=== PATIENT | female | born 1935 | race Caucasian/White ===

== ENCOUNTER 2017-04-13 13:21 | Inpatient (IN) | END 2017-05-01 14:00 | disposition home health service (06) | DRG 560 ==

== ENCOUNTER 2018-08-09 14:27 | Inpatient (IN) | payer MEDICARE, OTHER ==
[~2018-08-09] VITALS: Ht 157.5 cm; Wt 61.8 kg
[~2018-08-09 14:27] MED LIST: ASPI81TA52 PO; CITA20TA11 PO; CLON0.2T5 PO; CLOP75TA27 PO; DEXL60CA2 PO; DIGO250T PO; FLUT9.9S NASAL; FOLI-49 PO; LOPE-123 PO; LORA1TAB PO; LUBI24CA7 PO; MAGN400T27 PO; METO-319 PO; SIN25100 PO; TRIA1CAP PO; VALS160T20 PO
[2018-08-09 18:00] VITALS: BP 132/67; PULSE 63; RESP 18
[2018-08-09] MEDS ORDERED: MAGNESIUM HYDROXIDE 30ML CUP PO PRN (19:00)
[2018-08-09] MEDS ORDERED: ACETAMINOPHEN 325 MG TAB PO PRN (19:00)
[2018-08-09] MEDS ORDERED: LACTULOSE 30ML CUP PO PRN (19:00)
[2018-08-09] MEDS ORDERED: BISACODYL 10 MG SUPP PR PRN (19:00)
[2018-08-09] MEDS ORDERED: PENDING SANTYL ORDER FOR WOUND CARE XX PRN (19:00)
[2018-08-09] MEDS ORDERED: traMADol 50 MG TAB PO PRN (19:30)
[2018-08-09 19:56] VITALS: Ht 157.5 cm; Wt 61.8 kg
[2018-08-09 20:00] VITALS: BP 131/61; PULSE 57; RESP 18
[2018-08-09] MEDS: LORAZEPAM 0.5 MG TAB PO SCH (22:22)
[2018-08-09] MEDS: AMIODARONE 200 MG TAB PO SCH (22:22)
[2018-08-09] MEDS: CARBIDOPA/LEVODOPA (25/100) TAB PO SCH (22:23)
[2018-08-09] MEDS: LUBIPROSTONE 24 MCG CAP PO SCH (22:23)
[2018-08-09] MEDS: DOCUSATE SODIUM 100 MG CAP PO SCH (22:23)
[2018-08-09] MEDS: METOPROLOL (XL) 50 MG TAB PO SCH (22:23)
[2018-08-09] MEDS: SENNA TAB PO SCH (22:23)
[2018-08-09] MEDS: PRAMIPEXOLE 0.25 MG TAB PO SCH (22:24)
[2018-08-09] MEDS: ENOXAPARIN 60 MG/0.6 ML SYG SC SCH (22:27)
[2018-08-10 02:16] VITALS: BP 127/60; PULSE 59; RESP 18
[2018-08-10] MEDS: PANTOPRAZOLE (EC) 40 MG TAB PO SCH (06:33)
[2018-08-10 07:00] VITALS: BP 144/67; PULSE 60; RESP 18
[2018-08-10] MEDS: LUBIPROSTONE 24 MCG CAP PO SCH ×2 (09:00→20:32)
[2018-08-10] MEDS: DOCUSATE SODIUM 100 MG CAP PO SCH ×2 (09:00→20:32)
[2018-08-10] MEDS: MAGNESIUM OXIDE 400 MG TAB PO SCH (09:12)
[2018-08-10] MEDS: CLOPIDOGREL 75 MG TAB PO SCH (09:12)
[2018-08-10] MEDS: FOLIC ACID 1 MG TAB PO SCH (09:12)
[2018-08-10] MEDS: ESCITALOPRAM 10 MG TAB PO SCH (09:12)
[2018-08-10] MEDS: AMIODARONE 200 MG TAB PO SCH ×2 (09:13→20:36)
[2018-08-10] MEDS: METOPROLOL (XL) 50 MG TAB PO SCH ×2 (09:14→20:36)
[2018-08-10] MEDS: CARBIDOPA/LEVODOPA (25/100) TAB PO SCH ×4 (09:14→20:32)
[2018-08-10] MEDS: PRAMIPEXOLE 0.25 MG TAB PO SCH ×2 (09:14→21:22)
[2018-08-10] MEDS: FUROSEMIDE 20 MG TAB PO SCH (09:14)
[2018-08-10] MEDS: ENOXAPARIN 60 MG/0.6 ML SYG SC SCH ×2 (09:22→20:53)
[2018-08-10 14:00] VITALS: BP 145/65; PULSE 60; RESP 18
[2018-08-10] MEDS: ACETAMINOPHEN 325 MG TAB PO PRN (15:18)
--- NOTE | 2018-08-10 16:00 | CONS ---
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 ACTIVE COMORBIDITIES: 1. Parkinson's disease. 2. Hypertension. 3. Dysphagia. 4. History of atrial fibrillation. 5. Impairments in self-care, mobility and cognition. HISTORY OF PRESENT ILLNESS: The patient is a pleasant 82-year-old female with a history of multiple medical comorbidities including Parkinson's disease, atrial fibrillation and hypertension who was admitted with altered mental status to [facility]. Workup was consistent with a left parietal infarct cerebrovascular accident. The patient's hospital course is also notable for atrial fibrillation with rapid ventricular response. Patient has now been cleared to transfer to the rehabilitation unit for comprehensive interdisciplinary rehab care. FUNCTIONAL HISTORY: Prior to recent events, the patient was independent in self-care tasks and mobility. Currently, she requires moderate to maximal assist for self-care and mobility tasks. FAMILY AND SOCIAL HISTORY: The patient lives at home and hopes to return there upon discharge. PAST MEDICAL HISTORY: 1. Parkinson disease. 2. Hypertension. 3. Atrial fibrillation. CURRENT MEDICATIONS: 1. Amiodarone 200 mg p.o. b.i.d. 2. Protonix 40 mg p.o. daily. 3. Lorazepam 1 mg p.o. at bedtime. 4. Folic acid 1 mg p.o. daily. 5. Metoprolol 50 mg p.o. b.i.d. 6. Furosemide 20 mg p.o. daily. 7. Lovenox b.i.d. 8. Plavix 75 mg p.o. daily. ALLERGIES: The patient with no known drug allergies. PHYSICAL EXAMINATION: VITAL SIGNS: She is currently afebrile with stable vital signs. HEENT: Extraocular motions are intact. Oropharynx clear. NECK: Supple. LUNGS: Clear anteriorly. CARDIAC: S1, S2. ABDOMEN: Soft, nontender, positive bowel sounds. NEUROLOGIC: She is awake and alert. She will follow simple 1-step commands. She demonstrates antigravity strength in bilateral upper extremity and lower extremity. PLAN: The patient has been admitted for comprehensive interdisciplinary acute rehab and is anticipated to tolerate 3 hours of daily therapy in divided doses for at least 5/7 days a week. The treatment plan will include: 1. Physical therapy to focus on bed mobility, transfers, and household ambulation with the goal of having the patient reach a standby assist level. 2. Occupational therapy to focus on hygiene, grooming, dressing, bathing, and toileting activities with the goal of having the patient reach a standby assist level. 3. Speech therapy for full cognitive assessment and retraining in addition to dysphagia management with the goal of having the patient meet nutritional needs by mouth and return to baseline cognition. 4. Rehabilitation nursing for carryover of therapeutic interventions, the goal of continent of bowel and bladder, and the goal of patient education with regard to the aforementioned issues. 5. Neuropsychology for full cognitive assessment and oversight of cognitive program. REHABILITATION BARRIER: Cognition. INTERVENTION FOR BARRIER: Speech therapy and neuropsychology. ESTIMATED LENGTH OF STAY: 14 days. DISPOSITION GOAL: Home. As a board certified specialist in physical medicine and rehabilitation, I attest this patient qualifies for an interdisciplinary acute rehabilitation unit stay and is best managed at this level of care. The patient has potential to make improvement and is in need of at least 2 of the following multidisciplinary therapies including but not limited to physical therapy, occupational therapy, speech therapy in addition to nutritional services and orthotic prosthetic services. After a thorough review of the patient's medical records and physical examination, I believe that the patient meets all criteria for acute rehabilitation unit level of care under [facility] guidelines. The patient has expressed a good understanding of our current rehabilitation plan and discharge process. Dictated By: JAMES KEITH/RYAN Conf#: [id number] DID#: [id number]
--- NOTE | 2018-08-10 17:05 | QN ---
Documentation Comment seen and exmained CORI JON MD Aug 10, 2018 17:05
--- NOTE | 2018-08-10 19:51 | HP ---
DATE OF ADMISSION: 08/09/2018 REASON FOR ADMISSION: Stroke with right-sided weakness. HISTORY OF PRESENTING ILLNESS: This is an 82-year-old woman with a past medical history of Parkinson 's, hypertension, hyperlipidemia, history of right femoral neck fracture status post hemiarthroplasty in 2017, history of CHF, history of UTI, who presented to [facility] on 08/04/2018. The patient was found to have altered mental status. The patient was seen by neurology, had CT of t he head and had MRI of the brain. MRI of the brain showed large area of acute nonhemorrhagic infarct ion at the mid left parietal region. The patient was seen by neurology and was started on Plavix. T he patient was also on Lovenox for AFib. The patient was seen by PT, OT and was transferred to acute rehab for further care. PAST MEDICAL HISTORY: 1. Hypertension. 2. Hyperlipidemia. 3. Chronic AFib. 4. Parkinson's disease. 5. History of hemiarthroplasty in 2017. ALLERGIES: NONE. PAST SURGICAL HISTORY: Arthroplasty. The patient also had some stomach surgery. SOCIAL HISTORY: Denies any history of smoking, alcohol or any drug use. MEDICATIONS: 1. Amiodarone 200 p.o. b.i.d. 2. Protonix 40. 3. Lorazepam. 4. Folic acid. 5. Metoprolol 50 b.i.d. 6. Lasix 20. 7. Lovenox 50 b.i.d. 8. Plavix 75. FAMILY HISTORY: Noncontributory. SOCIAL HISTORY: The patient lives with her son at home. REVIEW OF SYSTEMS: The patient complained of some generalized weakness in the lower extremities. De nies any chest pain, any shortness of breath, any abdominal pain, nausea, vomiting, diarrhea, headach e, blurry vision. PHYSICAL EXAMINATION: VITAL SIGNS: Currently, blood pressure 145/65, afebrile, heart rate 60, saturating 96% on room air. GENERAL: The patient is awake, alert, oriented, does not appear in any acute distress. HEENT: Pupils are equal, round, reactive to light. NECK: Supple. No JVD. HEART: Irregularly irregular. LUNGS: Clear to auscultate bilaterally. ABDOMEN: Soft, nondistended, nontender, positive normoactive bowel sounds. NEUROLOGIC: The patient is awake, alert, oriented, follows commands, responds appropriately. The reji haile has 5/5 strength in bilateral upper extremities and 4/5 strength in bilateral lower extremities . LABORATORY DATA: Shows a BMP within normal limits. White count of 5.1, hemoglobin 10.3, platelet co unt 369. UA showed trace ketones, positive nitrite, 1+ urobilinogen, many bacteria, 5 WBCs. ASSESSMENT AND PLAN: This is an 82-year-old female with: 1. Altered mental status, status post large area of acute nonhemorrhagic infarction in the left midd le parietal region with some weakness of the lower extremities. 2. Hypertension. 3. Hyperlipidemia. 4. Parkinson disease. 5. Chronic atrial fibrillation. PLAN: At this period of time, the patient is admitted to rehab unit. The patient will be continued on Plavix. However, the patient is also on Lovenox. We will check with cardiology and neurology reg arding continuation of both. Continue the patient on carbidopa/levodopa, pramipexole, Ultram for chito n control. We will continue to follow patient with you. Cardiology and neurology has been consulted . Rest of the treatment will depend on the patient's hospitalization course. Dictated By: CORI TORRES/RYAN Conf#: [id number] DID#: [id number] CC: JAMES PYLE MD;*End*
[2018-08-10 20:13] VITALS: BP 142/69; PULSE 61; RESP 18
[2018-08-10] MEDS: LORAZEPAM 0.5 MG TAB PO SCH (20:32)
[2018-08-10] MEDS: SENNA TAB PO SCH (20:33)
[2018-08-10 22:00] VITALS: BP 109/59; PULSE 59
--- NOTE | 2018-08-10 22:28 | CONS ---
DATE OF ADMISSION: 08/09/2018 DATE OF CONSULTATION: 08/10/2018 REASON FOR CONSULTATION: Paroxysmal atrial fibrillation. REQUESTING PHYSICIAN: Gabbi Nino MD. HISTORY OF PRESENT ILLNESS: Ms. Plata is an 82-year-old female with history of Parkinson disease, at the [facility] fibrillation, hypertension, dyslipidemia, anemia, who initially presented to outside hospital wi th orthostasis, finding of acute CVA, left parietal with right-sided weakness. The patient at [facility] was additionally found to have episodes of paroxysmal atrial fibrillation and was placed o n anticoagulation and amiodarone. The patient made improvement, has now been transferred to [facility] for ongoing evaluation and treatment to the rehab facility. PAST MEDICAL HISTORY: As above in HPI. The patient having an echo revealing a preserved EF at [facility] with EF of 55%, mild mitral and tricuspid regurgitation. MEDICATIONS CURRENTLY IN HOSPITAL: 1. Lexapro. 2. Folic acid. 3. Lasix. 4. Plavix 75 mg daily. 5. Mag-Ox. 6. Protonix. 7. Colace. 8. Senna. 9. Amiodarone 200 mg b.i.d. 10. Toprol-XL 50 mg b.i.d. 11. Lovenox 60 mg subq b.i.d. 12. Tramadol. 13. Mirapex. ALLERGIES: NO KNOWN DRUG ALLERGIES. SOCIAL HISTORY: No current tobacco, ETOH or illicit drug use. FAMILY HISTORY: No sudden cardiac or early CAD. REVIEW OF SYSTEMS: As above in HPI. CONSTITUTIONAL: No fevers or chills. PULMONARY: No current shortness of breath. CARDIOVASCULAR: No current chest pain. GASTROINTESTINAL: No vomiting. GENITOURINARY: No hematuria. MUSCULOSKELETAL: Degenerative joint disease. PSYCHIATRIC: Positive psych history. NEUROLOGIC: Acute CVA at outside hospital. PHYSICAL EXAMINATION: VITAL SIGNS: Temperature 97.5, blood pressure 145/65, pulse 60, respiration 18, sat 96%. GENERAL: The patient is alert, awake, no acute distress. NECK: JVP approximately 8 to 9 cm of water. CHEST: Fair air movement throughout. HEART: Regular rate and rhythm. Normal S1, S2, I/ systolic murmur. Nondisplaced PMI. ABDOMEN: Positive bowel sounds, soft. EXTREMITIES: No syncope, edema, 1+ pulses bilateral posterior tibial. LABORATORY DATA: Most recently from today, white cell count 5.1, hemoglobin 10.3, platelet count 369 . Sodium 137, potassium 4.2, creatinine 0.8, BUN 19. UA positive. IMAGING STUDIES: As above in HPI. No further imaging for my review at this time. ECG: As above in HPI. No further electrocardiograms for my review at this time. IMPRESSION: 1. Paroxysmal atrial fibrillation on amiodarone and Lovenox. 2. Hypertension, mildly elevated. 3. Dyslipidemia, not on statin at this time. 4. Status post acute cerebrovascular accident, in rehab now. 5. Anemia. 6. Parkinson. 7. Psychiatric disorder. RECOMMENDATIONS: 1. At this time, would check a baseline EKG now and repeat EKG to assess the patient's current rhyth m. 2. Continue the patient's current amiodarone and Plavix for now and would likely change the patient from Lovenox to Eliquis for long-term systemic anticoagulation in the setting of atrial fibrillation and recent cerebrovascular accident. 3. Continue the patient's Sinemet, treatment of Parkinson. 4. Continue the Lasix. Follow the patient's volume status closely. 5. Continue the patient's baseline psych medications. 6. Continue the patient's baseline Toprol for blood pressure and heart rate control with further tit ration and possible addition of antihypertensives as necessary. 7. Continue PT and OT in inpatient rehabilitation. Thank you for allowing me to take part in the care of this patient. I will continue to follow very c losely with you. Further recommendations will be made as the patient progresses through his [facility] clinical course. Dictated By: BETTY PICKARD/RYAN Conf#: [id number] DID#: [id number]
--- NOTE | 2018-08-10 23:59 | HKNOTE ---
DATE OF SERVICE: 08/10/2018 HISTORY OF PRESENT ILLNESS: The patient is an 82-year-old status post right-sided weakness, left sub cortical stroke, parkinsonism, gait difficulty, hypertension, and atrial fibrillation in which the reji haile was discharged from [facility] and admitted to acute rehab at [facility] for continuation of her medication and her therapy. MEDICATIONS: 1. Amlodipine 200 mg twice a day. 2. Protonix 40 mg once a day. 3. Plavix 75 mg once a day. 4. Metoprolol 50 mg twice a day. 5. Lasix 20 mg once a day as needed. 6. Folic acid. 7. Lorazepam 1 mg at bedtime as needed. 8. Lovenox subcutaneous. ALLERGIES: THE PATIENT HAS NO ALLERGY TO KNOWN MEDICATION. PAST MEDICAL HISTORY: As above includes parkinsonism, hypertension, and atrial fibrillation, PHYSICAL EXAMINATION: GENERAL: Today, the patient is alert, awake, and can follow simple commands. CRANIAL NERVES: Cranial nerve II: Pupils equal both sides, reactive to light. Cranial nerves III, IV, and : Extraocular muscles are intact, no nystagmus. Cranial nerve V: Equal sensation to face . Cranial nerve VII: Symmetrical face. Cranial nerve VIII: Decreased hearing bilaterally. Crania l IX-X: Elevates palate. Cranial nerve XI: Elevates shoulder 5/5. Cranial XII: With straight ton jaspreet. MOTOR: Right side is 4+/5. Sensation decreased in the right side for light touch and temperature. COORDINATION: [id number] test intact in the left side, right side with weakness. HEART: Regular rate and rhythm. LUNGS: Equal breath sounds. ABDOMEN: Soft, relaxed. ASSESSMENT AND PLAN: 1. The patient is an 82-year-old status post acute stroke. Continue the patient on Plavix. Begin L ovenox as well. 2. Underlying parkinsonism. Keep the patient with Sinemet 100/25 mg 3 times a day. 3. Hypertension. Keep the blood pressure level 140/90. 4. Atrial fibrillation with the patient on metoprolol and amiodarone, followed by Dr. Aiken for ca rdiology consult and the patient also with the Lovenox. 5. Gait difficulty with the patient under physical therapy program. 6. Upper extremity weakness, and the patient is followed by occupational therapy. 7. Underlying dementia, which the patient is followed by neuropsychology for cognitive assessment. Again, thank you for asking me to see the patient with you. Dictated By: COLIN LOW MD NA/NTS Conf#: [id number] DID#: [id number] CC: CORI JON; JAMES PYLE MD;*End*
[2018-08-11 02:00] VITALS: BP 125/65; PULSE 62; RESP 18
[2018-08-11] MEDS: PANTOPRAZOLE (EC) 40 MG TAB PO SCH (05:44)
[2018-08-11 07:00] VITALS: BP 156/70; PULSE 59; RESP 18
[2018-08-11] MEDS: PRAMIPEXOLE 0.25 MG TAB PO SCH ×2 (09:49→21:26)
[2018-08-11] MEDS: CLOPIDOGREL 75 MG TAB PO SCH (09:49)
[2018-08-11] MEDS: CARBIDOPA/LEVODOPA (25/100) TAB PO SCH ×4 (09:50→21:25)
[2018-08-11] MEDS: FUROSEMIDE 20 MG TAB PO SCH (09:50)
[2018-08-11] MEDS: ESCITALOPRAM 10 MG TAB PO SCH (09:51)
[2018-08-11] MEDS: METOPROLOL (XL) 50 MG TAB PO SCH ×2 (09:51→21:30)
[2018-08-11] MEDS: LUBIPROSTONE 24 MCG CAP PO SCH ×2 (09:51→21:25)
[2018-08-11] MEDS: FOLIC ACID 1 MG TAB PO SCH (09:51)
[2018-08-11] MEDS: DOCUSATE SODIUM 100 MG CAP PO SCH ×2 (09:51→21:24)
[2018-08-11] MEDS: MAGNESIUM OXIDE 400 MG TAB PO SCH (09:52)
[2018-08-11] MEDS: AMIODARONE 200 MG TAB PO SCH ×2 (09:52→21:28)
[2018-08-11] MEDS: APIXABAN 5 MG TABLET PO SCH ×2 (09:52→21:26)
--- NOTE | 2018-08-11 10:31 | PN ---
Date/Time of Note Date/Time of Note DATE: 08/11/18 TIME: 10:29 Subjective Comfortable Objective Vital Signs Date Temp Pulse Resp B/P (MAP) Pulse Ox O2 O2 Flow FiO2 Time Delivery Rate 08/11/18 2.0 08:00 08/11/18 98.2 59 18 156/70 98 Room Air 07:00 (98) Intake and Output 08/10/18 08/10/18 08/11/18 1515:00 23:00 07:00 IntakeIntake Total 1440 ml 650 ml OutputOutput Total 150 ml 400 ml BalanceBalance -150 ml 1040 ml 650 ml Exam pulm-cta mod transfer mod amb 5 feet Results/Medications Result Diagram: 08/10/1808 08/10/18 0708 Results 24 hrs Laboratory Tests Test 08/10/18 16:00 08/11/18 06:25 Urine Color BRYAN Urine Clarity CLOUDY A Urine pH 6.0 Urine Specific [place] 1.021 Urine Ketones TRACE A Urine Nitrite POSITIVE A Urine Bilirubin NEGATIVE Urine Urobilinogen 1+ H Urine Leukocyte Esterase NEGATIVE Urine Microscopic RBC 0 Urine Microscopic WBC 5 Urine Bacteria MANY A Urine Mucus FEW A Urine Hemoglobin NEGATIVE Urine Glucose NEGATIVE Urine Total Protein NEGATIVE Triglycerides Level 142 Cholesterol Level 169 LDL Cholesterol, Calculated 106 HDL Cholesterol 35 Cholesterol/HDL Ratio 4.8 Medications Current Medications Docusate Sodium (Colace) 100 mg BID PO Last administered on 08/11/18at 09:51; Admin Dose 100 MG; Start 08/09/18 at 21:00 Senna (Senokot) 1 tab HS PO Last administered on 08/10/18at 20:33; Admin Dose 1 TAB; Start 08/09/18 at 21:00 Magnesium Hydroxide (Milk Of Mag) 30 ml BID PRN PO CONSTIPATION; Start 08/09/18 at 19:00 Lactulose (Enulose) 20 gm DAILY PRN PO CONSTIPATION; Start 08/09/18 at 19:00 Bisacodyl (Dulcolax Supp) 10 mg DAILY PRN [place] CONSTIPATION; Start 08/09/18 at 19:00 [facility]isc[facility] This patient mendoza... PRN PRN XX WOUND CARE; Start 08/09/18 at 19:00 Amiodarone HCl (Cordarone) 200 mg BID PO Last administered on 08/11/18at 09:52; Admin Dose 200 MG; Start 08/09/18 at 21:00 Pantoprazole (Protonix Tab) 40 mg DAILY@06 PO Last administered on 08/11/18 05:44; Admin Dose 40 MG; Start 08/10/18 at 06:00 Lorazepam (Ativan) 1 mg HS PO Last administered on 08/10/18 20:32; Admin Dose 1 MG; Start 08/09/18 at 21:00 Escitalopram Oxalate (Lexapro) 20 mg DAILY PO Last administered on 08/11/18 09:51; Admin Dose 20 MG; Start 08/10/18 at 09:00 Folic Acid (Folic Acid) 1 mg DAILY PO Last administered on 08/11/18 09:51; Admin Dose 1 MG; Start 08/10/18 at 09:00 Lubiprostone (Amitiza) 24 mcg BID PO Last administered on 08/11/18 09:51; Admin Dose 24 MCG; Start 08/09/18 at 21:00 Metoprolol Succinate (Toprol Xl) 50 mg BID PO Last administered on 08/11/18 09:51; Admin Dose 50 MG; Start 08/09/18 at 21:00 Pramipexole (Mirapex) 0.5 mg BID PO Last administered on 08/11/18 09:49; Admin Dose 0.5 MG; Start 08/09/18 at 21:00 Furosemide (Lasix) 20 mg DAILY PO Last administered on 08/11/18 09:50; Admin Dose 20 MG; Start 08/10/18 at 09:00 Clopidogrel Bisulfate (plaVIX) 75 mg DAILY PO Last administered on 08/11/18 09:49; Admin Dose 75 MG; Start 08/10/18 at 09:00 Magnesium Oxide (Mag-Ox 400) 400 mg DAILY PO Last administered on 08/11/18 09:52; Admin Dose 400 MG; Start 08/10/18 at 09:00 Carbidopa/Levodopa (Sinemet (25/ 100)) 1 tab QID PO Last administered on 08/11/18 09:50; Admin Dose 1 TAB; Start 08/09/18 at 21:00 Tramadol HCl (Ultram) 50 mg Q6H PRN PO SEVERE PAIN LEVEL 7-10 Last administered on 08/11/18 09:51; Admin Dose 50 MG; Start 08/09/18 at 19:30 Acetaminophen (Tylenol Tab) 650 mg Q8 PRN PO MODERATE PAIN LEVEL 4-6 Last adm inistered on 08/10/18at 15:18; Admin Dose 650 MG; Start 08/09/18 at 19:30 Apixaban (Eliquis) 2.5 mg BID PO Last administered on 08/11/18at 09:52; Admin Dose 2.5 MG; Start 08/11/18 at 09:00 Assessment/Plan Additional Assessment/Plan Rehab- 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 Tolerating rehab program well Hypertension. Dysphagia-speech therapy History of atrial fibrillation. JAMES PYLE MD Aug 11, 2018 10:31
--- NOTE | 2018-08-11 10:38 | CONS ---
Consult Date/Type/Reason Admit Date/Time Aug 09, 2018 at 18:10 Initial Consult Date Date/Time of Note DATE: 08/11/18 TIME: 10:36 Subjective NO acute events - pt comfortable - no CP now - doing well in rehab. ROS: No fever, no chills, no nausea, no vomiting, no diarrhea/constipation No recent weight changes No chest pain, no PND, no orthopnea - mild SOB No dizziness, blurred vision No thirst, no heat or cold intolerance Objective Vitals Vital Signs Date Temp Pulse Resp B/P (MAP) Pulse Ox O2 O2 Flow FiO2 Time Delivery Rate 08/11/18 2.0 08:00 08/11/18 98.2 59 18 156/70 98 Room Air 07:00 (98) Intake and Output 08/10/18 08/10/18 08/11/18 1414:59 22:59 06:59 IntakeIntake Total 1440 ml 650 ml OutputOutput Total 150 ml 400 ml BalanceBalance -150 ml 1040 ml 650 ml Exam General: WN/WD/NAD, AOx 2-3 HEENT: Unicetric/atraumatic/EOMI (follows commands) NECK: JVD elevated, no thyromegaly Lymph: no lymphadenopathy HEART: regular with no S3, II/ systolic murmur at apex LUNGS: Coarse sounds ABD: soft, NT, ND, +BS : Intact Neuro: non focal SKIN: chronic changes EXT: trace edema Results/Medications Result Diagram: 08/10/18 0708 08/10/18 0708 Results 24 hrs Laboratory Tests Test 08/10/18 16:00 08/11/18 06:25 Urine Color BRYAN Urine Clarity CLOUDY A Urine pH 6.0 Urine Specific [place] 1.021 Urine Ketones TRACE A Urine Nitrite POSITIVE A Urine Bilirubin NEGATIVE Urine Urobilinogen 1+ H Urine Leukocyte Esterase NEGATIVE Urine Microscopic RBC 0 Urine Microscopic WBC 5 Urine Bacteria MANY A Urine Mucus FEW A Urine Hemoglobin NEGATIVE Urine Glucose NEGATIVE Urine Total Protein NEGATIVE Triglycerides Level 142 Cholesterol Level 169 LDL Cholesterol, Calculated 106 HDL Cholesterol 35 Cholesterol/HDL Ratio 4.8 Home Meds Active Scripts Clonidine Hcl* (Clonidine Hcl*) 0.2 Mg Tablet, 0.2 MG PO Q8 PRN for ELEVATED SYSTOLIC BP, #30 TAB Prov:YOLI HARRISON 07/08/15 Reported Medications Lubiprostone* (Amitiza*) 24 Mcg Capsule, 24 MCG PO BID, #60 CAP 07/06/15 Carbidopa-Levodopa* (Sinemet*) 25-100 Mg Tab, 1 TAB PO QID, TAB 07/06/15 Loperamide Hcl* (Loperamide Hcl*) 2 Mg Cap, 2 MG PO TID, CAP 07/06/15 Valsartan* (Diovan*) 160 Mg Tablet, 160 MG PO DAILY, TAB 07/06/15 Dexlansoprazole (Dexilant) 60 Mg Cap., 60 MG PO DAILY, #30 CAP 07/06/15 Metoprolol Succinate* (Toprol XL*) 50 Mg Tab.er.24h, 50 MG PO DAILY, #30 TAB 07/06/15 Citalopram Hydrobromide* (Celexa*) 20 Mg Tablet, 20 MG PO DAILY, #30 TAB 07/06/15 Aspirin (Low Dose Aspirin) 81 Mg Tablet., 81 MG PO DAILY, #30 TAB 07/06/15 Digoxin* (Digoxin*) 0.25 Mg Tab, 0.25 MG PO DAILY, #30 TAB 07/06/15 Clopidogrel Bisulfate (Clopidogrel) 75 Mg Tablet, 75 MG PO DAILY, #30 TAB 07/06/15 Lorazepam* (Lorazepam*) 1 Mg Tablet, 1 MG PO BID PRN for ANXIETY, #30 TAB 07/06/15 Triamterene-HCTZ* (Triamterene-HCTZ*) 37.5 - 25 Mg Capsule, 1 CAP PO DAILY, CAP 07/06/15 Fluticasone Propionate (Flonase Allergy Relief) 9.9 Ml [place].susp, 1 SPRAY NASAL BID, #1 BOTTLE TO EACH NOSTRIL 07/06/15 Magnesium Oxide* (Mag-Oxide*) 400 Mg Tablet, 400 MG PO BID, TAB 07/06/15 Folic Acid* (Folic Acid*) 1 Mg Tablet, 1 MG PO DAILY, TAB 07/06/15 Medications Current Medications Docusate Sodium (Colace) 100 mg BID PO Last administered on 08/11/18at 09:51; Admin Dose 100 MG; Start 08/09/18 at 21:00 Senna (Senokot) 1 tab HS PO Last administered on 08/10/18at 20:33; Admin Dose 1 TAB; Start 08/09/18 at 21:00 Magnesium Hydroxide (Milk Of Mag) 30 ml BID PRN PO CONSTIPATION; Start 08/09/18 at 19:00 Lactulose (Enulose) 20 gm DAILY PRN PO CONSTIPATION; Start 08/09/18 at 19:00 Bisacodyl (Dulcolax Supp) 10 mg DAILY PRN [place] CONSTIPATION; Start 08/09/18 at 19:00 Miscellaneous Information (Pending [facility] Order For Wound Care) This patient mendoza... PRN PRN XX WOUND CARE; Start 08/09/18 at 19:00 Amiodarone HCl (Cordarone) 200 mg BID PO Last administered on 08/11/18 09:52; Admin Dose 200 MG; Start 08/09/18 at 21:00 Pantoprazole (Protonix Tab) 40 mg DAILY@06 PO Last administered on 08/11/18 05:44; Admin Dose 40 MG; Start 08/10/18 at 06:00 Lorazepam (Ativan) 1 mg HS PO Last administered on 08/10/18 20:32; Admin Dose 1 MG; Start 08/09/18 at 21:00 Escitalopram Oxalate (Lexapro) 20 mg DAILY PO Last administered on 08/11/18 09:51; Admin Dose 20 MG; Start 08/10/18 at 09:00 Folic Acid (Folic Acid) 1 mg DAILY PO Last administered on 08/11/18 09:51; Admin Dose 1 MG; Start 08/10/18 at 09:00 Lubiprostone (Amitiza) 24 mcg BID PO Last administered on 08/11/18 09:51; Admin Dose 24 MCG; Start 08/09/18 at 21:00 Metoprolol Succinate (Toprol Xl) 50 mg BID PO Last administered on 08/11/18 09:51; Admin Dose 50 MG; Start 08/09/18 at 21:00 Pramipexole (Mirapex) 0.5 mg BID PO Last administered on 08/11/18 09:49; Admin Dose 0.5 MG; Start 08/09/18 at 21:00 Furosemide (Lasix) 20 mg DAILY PO Last administered on 08/11/18 09:50; Admin Dose 20 MG; Start 08/10/18 at 09:00 Clopidogrel Bisulfate (plaVIX) 75 mg DAILY PO Last administered on 08/11/18 09:49; Admin Dose 75 MG; Start 08/10/18 at 09:00 Magnesium Oxide (Mag-Ox 400) 400 mg DAILY PO Last administered on 08/11/18 09:52; Admin Dose 400 MG; Start 08/10/18 at 09:00 Carbidopa/Levodopa (Sinemet (25/ 100)) 1 tab QID PO Last administered on 08/11/18 09:50; Admin Dose 1 TAB; Start 08/09/18 at 21:00 Tramadol HCl (Ultram) 50 mg Q6H PRN PO SEVERE PAIN LEVEL 7-10 Last administered on 08/11/18 09:51; Admin Dose 50 MG; Start 08/09/18 at 19:30 Acetaminophen (Tylenol Tab) 650 mg Q8 PRN PO MODERATE PAIN LEVEL 4-6 Last administered on 08/10/18 15:18; Admin Dose 650 MG; Start 08/09/18 at 19:30 Apixaban (Eliquis) 2.5 mg BID PO Last administered on 08/11/18 09:52; Admin Dose 2.5 MG; Start 08/11/18 at 09:00 Assessment/Plan Hospital Course (Demo Recall) 1. Paroxysmal atrial fibrillation on amiodarone and Lovenox - in sinus now, rate controlled. 2. Hypertension, mildly elevated - con't to add Rx to goal s/p CVA. 3. Dyslipidemia, not on statin at this time. 4. Status post acute cerebrovascular accident, in rehab now - compianat with rehab. 5. Anemia - H/H stable - no bleeding now. 6. Parkinson. 7. Psychiatric disorder- treated. FLACO KITCHEN MD Aug 11, 2018 10:37
[2018-08-11 14:00] VITALS: BP 114/56; PULSE 54; RESP 18
--- NOTE | 2018-08-11 15:25 | PN ---
Date/Time of Note Date/Time of Note DATE: 08/11/18 TIME: 15:22 Assessment/Plan VTE Prophylaxis Risk score (from Ns)>0 risk: 4 SCD applied (from Ns): Yes Pharmacological prophylaxis: NA/contraindicated Pharm contraindication: low risk/ambulating Lines/Catheters Urinary Cath still in place: No Assessment/Plan Hospital Course 82-year-old female with: 1. 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 2. Hypertension. 3. Hyperlipidemia. 4. Parkinson disease. 5. Chronic atrial fibrillation. 6 UTI Plan -Continue with Plavix -Start Cipro fine pending urine cultures -Started on Eliquis per cardiology for A. fib -Continue with statin continue with Sinemet -Follow with neuro and cardiac recs -PT/OT Result Diagram: 08/10/18 0708 08/10/18 0708 Results 24hrs Laboratory Tests Test 08/10/18 16:00 08/11/18 06:25 Urine Color BRYAN Urine Clarity CLOUDY A Urine pH 6.0 Urine Specific [place] 1.021 Urine Ketones TRACE A Urine Nitrite POSITIVE A Urine Bilirubin NEGATIVE Urine Urobilinogen 1+ H Urine Leukocyte Esterase NEGATIVE Urine Microscopic RBC 0 Urine Microscopic WBC 5 Urine Bacteria MANY A Urine Mucus FEW A Urine Hemoglobin NEGATIVE Urine Glucose NEGATIVE Urine Total Protein NEGATIVE Triglycerides Level 142 Cholesterol Level 169 LDL Cholesterol, Calculated 106 HDL Cholesterol 35 Cholesterol/HDL Ratio 4.8 Subjective 24 Hr Interval Summary Free Text/Dictation Doing well Undergoing physical therapy Exam/Review of Systems Exam Vitals Vital Signs Date Temp Pulse Resp B/P (MAP) Pulse Ox O2 O2 Flow FiO2 Time Delivery Rate 08/11/18 2.0 08:00 08/11/18 98.2 59 18 156/70 98 Room Air 07:00 (98) Intake and Output 08/10/18 08/10/18 08/11/18 1515:00 23:00 07:00 IntakeIntake Total 1440 ml 650 ml OutputOutput Total 150 ml 400 ml BalanceBalance -150 ml 1040 ml 650 ml Exam GENERAL: The patient is awake, alert, oriented, does not appear in any acute distress. HEENT: Pupils are equal, round, reactive to light. NECK: Supple. No JVD. HEART: Irregularly irregular. LUNGS: Clear to auscultate bilaterally. ABDOMEN: Soft, nondistended, nontender, positive normoactive bowel sounds. NEUROLOGIC: The patient is awake, alert, oriented, follows commands, responds appropriately. The patient has 5/5 strength in bilateral upper extremities and 4/5 strength in bilateral lower extremities. Results Results 24hrs Laboratory Tests Test 08/10/18 16:00 08/11/18 06:25 Urine Color BRYAN Urine Clarity CLOUDY A Urine pH 6.0 Urine Specific [place] 1.021 Urine Ketones TRACE A Urine Nitrite POSITIVE A Urine Bilirubin NEGATIVE Urine Urobilinogen 1+ H Urine Leukocyte Esterase NEGATIVE Urine Microscopic RBC 0 Urine Microscopic WBC 5 Urine Bacteria MANY A Urine Mucus FEW A Urine Hemoglobin NEGATIVE Urine Glucose NEGATIVE Urine Total Protein NEGATIVE Triglycerides Level 142 Cholesterol Level 169 LDL Cholesterol, Calculated 106 HDL Cholesterol 35 Cholesterol/HDL Ratio 4.8 Medications Medication Current Medications Docusate Sodium (Colace) 100 mg BID PO Last administered on 08/11/18 09:51; Admin Dose 100 MG; Start 08/09/18 at 21:00 Senna (Senokot) 1 tab HS PO Last administered on 08/10/18at 20:33; Admin Dose 1 TAB; Start 08/09/18 at 21:00 Magnesium Hydroxide (Milk Of Mag) 30 ml BID PRN PO CONSTIPATION; Start 08/09/18 at 19:00 Lactulose (Enulose) 20 gm DAILY PRN PO CONSTIPATION; Start 08/09/18 at 19:00 Bisacodyl (Dulcolax Supp) 10 mg DAILY PRN [place] CONSTIPATION; Start 08/09/18 at 19:00 Miscellaneous Information (Pending [facility] Order For Wound Care) This patient mendoza... PRN PRN XX WOUND CARE; Start 08/09/18 at 19:00 Amiodarone HCl (Cordarone) 200 mg BID PO Last administered on 08/11/18at 09:52; Admin Dose 200 MG; Start 08/09/18 at 21:00 Pantoprazole (Protonix Tab) 40 mg DAILY@06 PO Last administered on 08/11/18at 05:44; Admin Dose 40 MG; Start 08/10/18 at 06:00 Lorazepam (Ativan) 1 mg HS PO Last administered on 08/10/18 20:32; Admin Dose 1 MG; Start 08/09/18 at 21:00 Escitalopram Oxalate (Lexapro) 20 mg DAILY PO Last administered on 08/11/18 09:51; Admin Dose 20 MG; Start 08/10/18 at 09:00 Folic Acid (Folic Acid) 1 mg DAILY PO Last administered on 08/11/18 09:51; Admin Dose 1 MG; Start 08/10/18 at 09:00 Lubiprostone (Amitiza) 24 mcg BID PO Last administered on 08/11/18 09:51; Admin Dose 24 MCG; Start 08/09/18 at 21:00 Metoprolol Succinate (Toprol Xl) 50 mg BID PO Last administered on 08/11/18 09:51; Admin Dose 50 MG; Start 08/09/18 at 21:00 Pramipexole (Mirapex) 0.5 mg BID PO Last administered on 08/11/18 09:49; Admin Dose 0.5 MG; Start 08/09/18 at 21:00 Furosemide (Lasix) 20 mg DAILY PO Last administered on 08/11/18 09:50; Admin Dose 20 MG; Start 08/10/18 at 09:00 Clopidogrel Bisulfate (plaVIX) 75 mg DAILY PO Last administered on 08/11/18 09:49; Admin Dose 75 MG; Start 08/10/18 at 09:00 Magnesium Oxide (Mag-Ox 400) 400 mg DAILY PO Last administered on 08/11/18 09:52; Admin Dose 400 MG; Start 08/10/18 at 09:00 Carbidopa/Levodopa (Sinemet (25/ 100)) 1 tab QID PO Last administered on 08/11/18 14:26; Admin Dose 1 TAB; Start 08/09/18 at 21:00 Tramadol HCl (Ultram) 50 mg Q6H PRN PO SEVERE PAIN LEVEL 7-10 Last administered on 08/11/18 09:51; Admin Dose 50 MG; Start 08/09/18 at 19:30 Acetaminophen (Tylenol Tab) 650 mg Q8 PRN PO MODERATE PAIN LEVEL 4-6 Last administered on 08/10/18 15:18; Admin Dose 650 MG; Start 08/09/18 at 19:30 Apixaban (Eliquis) 2.5 mg BID PO Last administered on 08/11/18 09:52; Admin Dose 2.5 MG; Start 08/11/18 at 09:00 Nifedipine (Procardia Xl) 30 mg BID PO ; Start 08/11/18 at 21:00 Ciprofloxacin (Cipro) 500 mg BID@06,18 PO ; Start 08/11/18 at 18:00; Status UNV CORI JON MD Aug 11, 2018 15:25
[2018-08-11] MEDS: traMADol 50 MG TAB PO PRN (17:22)
[2018-08-11] MEDS: CIPROFLOXACIN 500 MG TAB PO SCH (17:22)
--- NOTE | 2018-08-11 17:35 | RADRPT ---
Vent Rate: 61 bpm RR Interval: 0 msec [place] Interval: 224 msec QRS Duration: 88 msec QT Interval: 486 msec QTC Interval: 489 msec P-R-T [place]: 82 - 48 - 0 degrees Sinus rhythm with 1st degree AV block Left ventricular hypertrophy with repolarization abnormality Abnormal ECG Electronically Signed By: Roderick Aiken
[2018-08-11 20:55] VITALS: BP 118/56; PULSE 50; RESP 18
[2018-08-11] MEDS: SENNA TAB PO SCH (21:24)
[2018-08-11] MEDS: LORAZEPAM 0.5 MG TAB PO SCH (21:25)
--- NOTE | 2018-08-11 21:25 | CONS ---
DATE OF ADMISSION: 08/09/2018 DATE OF CONSULTATION: HISTORY OF PRESENT ILLNESS: The patient is an 82-year-old lady who has history of left subcortical s troke, right-sided weakness, parkinsonism, gait difficulty, hypertension, atrial fibrillation in [facility] the patient was transferred from [facility] to acute rehab at [facility] for continuation of her therapy. CURRENT MEDICATIONS: Include: 1. Amiodarone 200 mg twice a day. 2. Protonix 40 mg once a day. 3. Plavix 75 mg once a day. 4. Metoprolol 50 twice a day. 5. Lasix 20 mg once a day as needed. 6. Folic acid 1 mg once a day. 7. Lorazepam 1 mg at bedtime as needed. 8. Lovenox subcutaneous twice a day. ALLERGIES: NO ALLERGY TO KNOWN MEDICATION. PAST MEDICAL HISTORY: Include Parkinsonism, hypertension, atrial fibrillation. PHYSICAL EXAMINATION: GENERAL: On exam today, the patient is alert, awake, looks confused, can follow simple commands with out difficulty. CRANIAL NERVES: Cranial nerve II: Pupils equal on both sides, reactive to light. Cranial nerves II I, IV and : Extraocular muscles are intact without nystagmus. Cranial nerve V: Equal sensation t o face. Cranial nerve VII: Symmetrical face. Cranial nerve VIII: Decreased hearing bilaterally. Cranial nerve IX and X: Elevates palate. Cranial nerve XI: Elevates shoulder 5/5. Cranial nerve X II: Straight tongue. MOTOR: Right side is 4+/5. Sensation decreased on the right side for light touch and temperature. COORDINATION: [id number] test intact. HEART: Regular rate and rhythm. LUNGS: Equal breath sounds. ABDOMEN: Soft, relaxed, nondistended, no tenderness. ASSESSMENT AND PLAN: 1. The patient is an 82-year-old status post acute stroke. Continue the patient on Plavix. 2. History of atrial fibrillation with the patient is on the Lovenox. 3. History of parkinsonism. Give the patient Sinemet 100/25 mg 3 times a day. 4. Hypertension. Keep the blood pressure at the level of 140/90. 5. Gait difficulty in which the patient acute rehab including physical therapy, occupational t herapy and speech therapy. 6. Underlying dementia. We will follow up the patient with neuropsychological testing. Again, thank you for asking me to see the patient with you. Dictated By: COLIN HERRERA/RYAN Conf#: [id number] DID#: [id number]
[2018-08-11] MEDS: NIFEdipine (XL) 30 MG TAB PO SCH (21:29)
[2018-08-12 04:19] VITALS: BP 140/66; PULSE 59; RESP 18
[2018-08-12] MEDS: CIPROFLOXACIN 500 MG TAB PO SCH (06:26)
[2018-08-12] MEDS: PANTOPRAZOLE (EC) 40 MG TAB PO SCH (06:26)
[2018-08-12 08:00] VITALS: BP 140/65; PULSE 56; RESP 16
[2018-08-12] MEDS: MAGNESIUM OXIDE 400 MG TAB PO SCH (08:58)
[2018-08-12] MEDS: DOCUSATE SODIUM 100 MG CAP PO SCH ×2 (08:58→21:32)
[2018-08-12] MEDS: PRAMIPEXOLE 0.25 MG TAB PO SCH ×2 (09:06→21:32)
[2018-08-12] MEDS: APIXABAN 5 MG TABLET PO SCH ×2 (09:06→21:31)
[2018-08-12] MEDS: LUBIPROSTONE 24 MCG CAP PO SCH ×2 (09:07→21:00)
[2018-08-12] MEDS: traMADol 50 MG TAB PO PRN (09:07)
[2018-08-12] MEDS: METOPROLOL (XL) 50 MG TAB PO SCH ×2 (09:08→21:00)
[2018-08-12] MEDS: CARBIDOPA/LEVODOPA (25/100) TAB PO SCH ×4 (09:08→21:32)
[2018-08-12] MEDS: NIFEdipine (XL) 30 MG TAB PO SCH ×2 (09:09→21:00)
[2018-08-12] MEDS: AMIODARONE 200 MG TAB PO SCH ×2 (09:09→21:00)
[2018-08-12] MEDS: CLOPIDOGREL 75 MG TAB PO SCH (09:09)
[2018-08-12] MEDS: FUROSEMIDE 20 MG TAB PO SCH (09:10)
[2018-08-12] MEDS: ESCITALOPRAM 10 MG TAB PO SCH (09:10)
[2018-08-12] MEDS: FOLIC ACID 1 MG TAB PO SCH (09:16)
--- NOTE | 2018-08-12 12:26 | PN ---
Date/Time of Note Date/Time of Note DATE: 08/12/18 TIME: 12:25 Subjective Comfortable Objective Vital Signs Date Temp Pulse Resp B/P (MAP) Pulse Ox O2 O2 Flow FiO2 Time Delivery Rate 08/12/18 2.0 08:00 08/12/18 98.6 56 16 140/65 98 Room Air 08:00 (90) Intake and Output 08/11/18 08/11/18 08/12/18 1414:59 22:59 06:59 IntakeIntake Total 1200 ml 400 ml OutputOutput Total 600 ml BalanceBalance 600 ml 400 ml Exam pulm-cta abd-soft min/cga Results/Medications Result Diagram: 08/10/18 0708 08/10/18 0708 Medications Current Medications Docusate Sodium (Colace) 100 mg BID PO Last administered on 08/12/18at 08:58; Admin Dose 100 MG; Start 08/09/18 at 21:00 Senna (Senokot) 1 tab HS PO Last administered on 08/11/18at 21:24; Admin Dose 1 TAB; Start 08/09/18 at 21:00 Magnesium Hydroxide (Milk Of Mag) 30 ml BID PRN PO CONSTIPATION; Start 08/09/18 at 19:00 Lactulose (Enulose) 20 gm DAILY PRN PO CONSTIPATION; Start 08/09/18 at 19:00 Bisacodyl (Dulcolax Supp) 10 mg DAILY PRN [place] CONSTIPATION; Start 08/09/18 at 19:00 Miscellaneous Information (Pending Santyl Order For Wound Care) This patient mendoza... PRN PRN XX WOUND CARE; Start 08/09/18 at 19:00 Amiodarone HCl (Cordarone) 200 mg BID PO Last administered on 08/12/18at 09:09; Admin Dose 200 MG; Start 08/09/18 at 21:00 Pantoprazole (Protonix Tab) 40 mg DAILY@06 PO Last administered on 08/12/18at 06:26; Admin Dose 40 MG; Start 08/10/18 at 06:00 Lorazepam (Ativan) 1 mg HS PO Last administered on 08/11/18at 21:25; Admin Dose 1 MG; Start 08/09/18 at 21:00 Escitalopram Oxalate (Lexapro) 20 mg DAILY PO Last administered on 08/12/18at 09:10; Admin Dose 20 MG; Start 08/10/18 at 09:00 Folic Acid (Folic Acid) 1 mg DAILY PO Last administered on 08/12/18 09:16; Admin Dose 1 MG; Start 08/10/18 at 09:00 Lubiprostone (Amitiza) 24 mcg BID PO Last administered on 08/12/18 09:07; Admin Dose 24 MCG; Start 08/09/18 at 21:00 Metoprolol Succinate (Toprol Xl) 50 mg BID PO Last administered on 08/12/18 09:08; Admin Dose 50 MG; Start 08/09/18 at 21:00 Pramipexole (Mirapex) 0.5 mg BID PO Last administered on 08/12/18 09:06; Admin Dose 0.5 MG; Start 08/09/18 at 21:00 Furosemide (Lasix) 20 mg DAILY PO Last administered on 08/12/18 09:10; Admin Dose 20 MG; Start 08/10/18 at 09:00 Clopidogrel Bisulfate (plaVIX) 75 mg DAILY PO Last administered on 08/12/18 09:09; Admin Dose 75 MG; Start 08/10/18 at 09:00 Magnesium Oxide (Mag-Ox 400) 400 mg DAILY PO Last administered on 08/12/18 08:58; Admin Dose 400 MG; Start 08/10/18 at 09:00 Carbidopa/Levodopa (Sinemet (25/ 100)) 1 tab QID PO Last administered on 08/12/18 09:08; Admin Dose 1 TAB; Start 08/09/18 at 21:00 Acetaminophen (Tylenol Tab) 650 mg Q8 PRN PO MODERATE PAIN LEVEL 4-6 Last administered on 08/10/18 15:18; Admin Dose 650 MG; Start 08/09/18 at 19:30 Apixaban (Eliquis) 2.5 mg BID PO Last administered on 08/12/18 09:06; Admin Dose 2.5 MG; Start 08/11/18 at 09:00 Nifedipine (Procardia Xl) 30 mg BID PO Last administered on 08/12/18 09:09; Admin Dose 30 MG; Start 08/11/18 at 21:00 Ciprofloxacin (Cipro) 500 mg BID@18 PO Last administered on 08/12/18 06:26; Admin Dose 500 MG; Start 08/11/18 at 18:00 Tramadol HCl (Ultram) 50 mg Q4H PRN PO SEVERE PAIN LEVEL 7-10 Last administered on 08/12/18at 09:07; Admin Dose 50 MG; Start 08/11/18 at 15:30 Assessment/Plan Additional Assessment/Plan Rehab- 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 Progressing with rehab program Hypertension. Dysphagia-speech therapy History of atrial fibrillation. JAMES PYLE MD Aug 12, 2018 12:26
--- NOTE | 2018-08-12 16:01 | PN ---
Date/Time of Note Date/Time of Note DATE: 08/12/18 TIME: 15:59 Assessment/Plan VTE Prophylaxis Risk score (from Ns)>0 risk: 4 SCD applied (from [facility] [place]): Yes Pharmacological prophylaxis: NA/contraindicated Pharm contraindication: low risk/ambulating Lines/Catheters Urinary Cath still in place: No Assessment/Plan Hospital Course 82-year-old female with: 1. 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 2. Hypertension. 3. Hyperlipidemia. 4. Parkinson disease. 5. Chronic atrial fibrillation. 6 UTI ecoli resistant to cipro Plan -Continue with Plavix -ECOLI resistant to cipro> start rocephin -Started on Eliquis per cardiology for A. fib -Continue with statin - cw nifedipine/MTP/ Lasix/amiodarone continue with Sinemet -Follow with neuro and cardiac recs -PT/OT Result Diagram: 08/10/18 0708 08/10/18 0708 Subjective 24 Hr Interval Summary Free Text/Dictation feels ok Exam/Review of Systems Exam Vitals Vital Signs Date Temp Pulse Resp B/P (MAP) Pulse Ox O2 O2 Flow FiO2 Time Delivery Rate 08/12/18 2.0 08:00 08/12/18 98.6 56 16 140/65 98 Room Air 08:00 (90) Intake and Output 08/11/18 08/11/18 08/12/18 1414:59 22:59 06:59 IntakeIntake Total 1200 ml 400 ml OutputOutput Total 600 ml BalanceBalance 600 ml 400 ml Exam GENERAL: The patient is awake, alert, oriented, does not appear in any acute distress. HEENT: Pupils are equal, round, reactive to light. NECK: Supple. No JVD. HEART: Irregularly irregular. LUNGS: Clear to auscultate bilaterally. ABDOMEN: Soft, nondistended, nontender, positive normoactive bowel sounds. NEUROLOGIC: The patient is awake, alert, oriented, follows commands, responds appropriately. The patient has 5/5 strength in bilateral upper extremities and 4/5 strength in bilateral lower extre Medications Medication Current Medications Docusate Sodium (Colace) 100 mg BID PO Last administered on 08/12/18at 08:58; Admin Dose 100 MG; Start 08/09/18 at 21:00 Senna (Senokot) 1 tab HS PO Last administered on 08/11/18 21:24; Admin Dose 1 TAB; Start 08/09/18 at 21:00 Magnesium Hydroxide (Milk Of Mag) 30 ml BID PRN PO CONSTIPATION; Start 08/09/18 at 19:00 Lactulose (Enulose) 20 gm DAILY PRN PO CONSTIPATION; Start 08/09/18 at 19:00 Bisacodyl (Dulcolax Supp) 10 mg DAILY PRN [place] CONSTIPATION; Start 08/09/18 at 19:00 Miscellaneous Information (Pending Santyl Order For Wound Care) This patient mendoza... PRN PRN XX WOUND CARE; Start 08/09/18 at 19:00 Amiodarone HCl (Cordarone) 200 mg BID PO Last administered on 08/12/18 09:09; Admin Dose 200 MG; Start 08/09/18 at 21:00 Pantoprazole (Protonix Tab) 40 mg DAILY@06 PO Last administered on 08/12/18 06:26; Admin Dose 40 MG; Start 08/10/18 at 06:00 Lorazepam (Ativan) 1 mg HS PO Last administered on 08/11/18 21:25; Admin Dose 1 MG; Start 08/09/18 at 21:00 Escitalopram Oxalate (Lexapro) 20 mg DAILY PO Last administered on 08/12/18 09:10; Admin Dose 20 MG; Start 08/10/18 at 09:00 Folic Acid (Folic Acid) 1 mg DAILY PO Last administered on 08/12/18 09:16; Admin Dose 1 MG; Start 08/10/18 at 09:00 Lubiprostone (Amitiza) 24 mcg BID PO Last administered on 08/12/18 09:07; Admin Dose 24 MCG; Start 08/09/18 at 21:00 Metoprolol Succinate (Toprol Xl) 50 mg BID PO Last administered on 08/12/18 09:08; Admin Dose 50 MG; Start 08/09/18 at 21:00 Pramipexole (Mirapex) 0.5 mg BID PO Last administered on 08/12/18 09:06; Admin Dose 0.5 MG; Start 08/09/18 at 21:00 Furosemide (Lasix) 20 mg DAILY PO Last administered on 4/17/19at 09:10; Admin Dose 20 MG; Start 08/10/18 at 09:00 Clopidogrel Bisulfate (plaVIX) 75 mg DAILY PO Last administered on 08/12/18 09:09; Admin Dose 75 MG; Start 08/10/18 at 09:00 Magnesium Oxide (Mag-Ox 400) 400 mg DAILY PO Last administered on 08/12/18 08:58; Admin Dose 400 MG; Start 08/10/18 at 09:00 Carbidopa/Levodopa (Sinemet (25/ )) 1 tab QID PO Last administered on 08/12/18 12:46; Admin Dose 1 TAB; Start 08/09/18 at 21:00 Acetaminophen (Tylenol Tab) 650 mg Q8 PRN PO MODERATE PAIN LEVEL 4-6 Last administered on 08/10/18 15:18; Admin Dose 650 MG; Start 08/09/18 at 19:30 Apixaban (Eliquis) 2.5 mg BID PO Last administered on 08/12/18 09:06; Admin Dose 2.5 MG; Start 08/11/18 at 09:00 Nifedipine (Procardia Xl) 30 mg BID PO Last administered on 08/12/18 09:09; Admin Dose 30 MG; Start 08/11/18 at 21:00 Ciprofloxacin (Cipro) 500 mg BID@,18 PO Last administered on 08/12/18 06:26; Admin Dose 500 MG; Start 08/11/18 at 18:00 Tramadol HCl (Ultram) 50 mg Q4H PRN PO SEVERE PAIN LEVEL 7-10 Last administered on 08/12/18 09:07; Admin Dose 50 MG; Start 08/11/18 at 15:30 CORI JON MD Aug 12, 2018 16:01
[2018-08-12 16:35] VITALS: BP 100/58; PULSE 89; RESP 18
--- NOTE | 2018-08-12 16:43 | CONS ---
Assessment/Plan Assessment/Plan Hospital Course (Demo Recall) IMPRESSION: 1. Paroxysmal atrial fibrillation on amiodarone 2. Hypertension, mildly elevated. 3. Dyslipidemia, not on statin at this time. 4. Status post acute cerebrovascular accident, in rehab now. 5. Anemia. 6. Parkinson. 7. Psychiatric disorder. Recc: -Check 12 lead ecg to document rhythm -Now on eliquis -Continue BB/amiodarine at current doses as tolerated -Continue sinemet -PT/OT -Follow volume status clsoely Consultation Date/Type/Reason Admit Date/Time Aug 09, 2018 at 18:10 Initial Consult Date 08/10/18 Type of Consult Cardiology Reason for Consultation PAF Requesting Provider: CORI JON MD Date/Time of Note DATE: 08/12/18 TIME: 16:40 Exam/Review of Systems Vital Signs Vitals Vital Signs Date Temp Pulse Resp B/P (MAP) Pulse Ox O2 O2 Flow FiO2 Time Delivery Rate 08/12/18 97.6 89 18 100/58 98 Room Air 16:35 (72) 08/12/18 2.0 08:00 Intake and Output 08/11/18 08/11/18 08/12/18 1515:00 23:00 07:00 IntakeIntake Total 1200 ml 400 ml OutputOutput Total 600 ml BalanceBalance 600 ml 400 ml Exam Exam Review of Systems: CONSTITUTIONAL: No fevers, chills. PULMONARY: No sob CARDIOVASCULAR: No chest pain/palpitations GASTROINTESTINAL: No nausea/vomiting. GENITOURINARY: No hematuria/dysuria. MUSCULOSKELETAL: No myagias/arthalgias. PSYCHIATRIC: The patient denies depression. NEUROLOGIC: No weakness Constitutional: alert Psych: no complaints Head: normocephalic ENMT: mucosa pink and moist Neck: supple, jvd (9 cm water) Respiratory: diminished breath sounds (at bases/B) Cardiovascular: regular rate and rhythm Gastrointestinal: soft, non-tender Musculoskeletal: muscle tone (normal) Extremities: edema (trace/B) Neurological: other (No focal deficits) Labs Result Diagram: 08/10/18 0708 08/10/18 0708 Medications Medications Current Medications Docusate Sodium (Colace) 100 mg BID PO Last administered on 08/12/18at 08:58; Admin Dose 100 MG; Start 08/09/18 at 21:00 Senna (Senokot) 1 tab HS PO Last administered on 08/11/18 21:24; Admin Dose 1 TAB; Start 08/09/18 at 21:00 Magnesium Hydroxide (Milk Of Mag) 30 ml BID PRN PO CONSTIPATION; Start 08/09/18 at 19:00 Lactulose (Enulose) 20 gm DAILY PRN PO CONSTIPATION; Start 08/09/18 at 19:00 Bisacodyl (Dulcolax Supp) 10 mg DAILY PRN [place] CONSTIPATION; Start 08/09/18 at 19:00 Miscellaneous Information (Pending Santyl Order For Wound Care) This patient mendoza... PRN PRN XX WOUND CARE; Start 08/09/18 at 19:00 Amiodarone HCl (Cordarone) 200 mg BID PO Last administered on 08/12/18 09:09; Admin Dose 200 MG; Start 08/09/18 at 21:00 Pantoprazole (Protonix Tab) 40 mg DAILY@06 PO Last administered on 08/12/18 06 :26; Admin Dose 40 MG; Start 08/10/18 at 06:00 Lorazepam (Ativan) 1 mg HS PO Last administered on 08/11/18 21:25; Admin Dose 1 MG; Start 08/09/18 at 21:00 Escitalopram Oxalate (Lexapro) 20 mg DAILY PO Last administered on 08/12/18 09:10; Admin Dose 20 MG; Start 08/10/18 at 09:00 Folic Acid (Folic Acid) 1 mg DAILY PO Last administered on 08/12/18 09:16; Admin Dose 1 MG; Start 08/10/18 at 09:00 Lubiprostone (Amitiza) 24 mcg BID PO Last administered on 08/12/18 09:07; Admin Dose 24 MCG; Start 08/09/18 at 21:00 Metoprolol Succinate (Toprol Xl) 50 mg BID PO Last administered on 08/12/18 0 9:08; Admin Dose 50 MG; Start 08/09/18 at 21:00 Pramipexole (Mirapex) 0.5 mg BID PO Last administered on 08/12/18 09:06; Admin Dose 0.5 MG; Start 08/09/18 at 21:00 Furosemide (Lasix) 20 mg DAILY PO Last administered on 08/12/18 09:10; Admin Dose 20 MG; Start 08/10/18 at 09:00 Clopidogrel Bisulfate (plaVIX) 75 mg DAILY PO Last administered on 08/12/18 09:09; Admin Dose 75 MG; Start 08/10/18 at 09:00 Magnesium Oxide (Mag-Ox 400) 400 mg DAILY PO Last administered on 08/12/18 08:58; Admin Dose 400 MG; Start 08/10/18 at 09:00 Carbidopa/Levodopa (Sinemet (25/ )) 1 tab QID PO Last administered on 08/12/18 12:46; Admin Dose 1 TAB; Start 08/09/18 at 21:00 Acetaminophen (Tylenol Tab) 650 mg Q8 PRN PO MODERATE PAIN LEVEL 4-6 Last administered on 08/10/18 15:18; Admin Dose 650 MG; Start 08/09/18 at 19:30 Apixaban (Eliquis) 2.5 mg BID PO Last administered on 08/12/18 09:06; Admin Dose 2.5 MG; Start 08/11/18 at 09:00 Nifedipine (Procardia Xl) 30 mg BID PO Last administered on 08/12/18 09:09; Admin Dose 30 MG; Start 08/11/18 at 21:00 Tramadol HCl (Ultram) 50 mg Q4H PRN PO SEVERE PAIN LEVEL 7-10 Last administered on 08/12/18 09:07; Admin Dose 50 MG; Start 08/11/18 at 15:30 Ceftriaxone Sodium 50 ml @ 100 mls/hr Q24H IVPB ; Start 08/12/18 at 17:00 BETTY CORDOBA Aug 12, 2018 16:43
[2018-08-12] MEDS ORDERED: CEFTRIAXONE 1 GM/50 ML (PMX) 50 ML IVPB SCH (17:00)
[2018-08-12 20:05] VITALS: BP 134/67; PULSE 63; RESP 18
[2018-08-12] MEDS: SENNA TAB PO SCH (21:00)
[2018-08-12 21:15] VITALS: BP 102/53; PULSE 52; RESP 16
[2018-08-12] MEDS: LORAZEPAM 0.5 MG TAB PO SCH (21:32)
[2018-08-12] MEDS: NITROFURANTOIN (SR) 100 MG CAP PO SCH (21:39)
[2018-08-13 02:00] VITALS: BP 117/61; PULSE 61; RESP 18
[2018-08-13] MEDS: PANTOPRAZOLE (EC) 40 MG TAB PO SCH (06:44)
[2018-08-13 07:00] VITALS: BP 111/58; PULSE 59; RESP 18
[2018-08-13] MEDS: traMADol 50 MG TAB PO PRN ×3 (08:55→17:49)
[2018-08-13] MEDS: CLOPIDOGREL 75 MG TAB PO SCH (08:55)
[2018-08-13] MEDS: CARBIDOPA/LEVODOPA (25/100) TAB PO SCH ×4 (08:56→21:12)
[2018-08-13] MEDS: APIXABAN 5 MG TABLET PO SCH ×2 (08:56→21:12)
[2018-08-13] MEDS: AMIODARONE 200 MG TAB PO SCH ×2 (08:56→21:00)
[2018-08-13] MEDS: NITROFURANTOIN (SR) 100 MG CAP PO SCH ×2 (09:04→21:11)
[2018-08-13] MEDS: LUBIPROSTONE 24 MCG CAP PO SCH ×2 (09:05→21:12)
[2018-08-13] MEDS: ESCITALOPRAM 10 MG TAB PO SCH (09:05)
[2018-08-13] MEDS: MAGNESIUM OXIDE 400 MG TAB PO SCH (09:05)
[2018-08-13] MEDS: NIFEdipine (XL) 30 MG TAB PO SCH ×2 (09:05→21:00)
[2018-08-13] MEDS: FOLIC ACID 1 MG TAB PO SCH (09:05)
[2018-08-13] MEDS: DOCUSATE SODIUM 100 MG CAP PO SCH ×2 (09:05→21:12)
[2018-08-13] MEDS: PRAMIPEXOLE 0.25 MG TAB PO SCH ×2 (09:06→21:12)
[2018-08-13] MEDS: FUROSEMIDE 20 MG TAB PO SCH ×2 (09:06→21:11)
[2018-08-13] MEDS: METOPROLOL (XL) 50 MG TAB PO SCH ×2 (09:06→21:00)
--- NOTE | 2018-08-13 13:16 | PN ---
Date/Time of Note Date/Time of Note DATE: 08/13/18 TIME: 13:16 Subjective motivated Objective Vital Signs Date Temp Pulse Resp B/P (MAP) Pulse Ox O2 O2 Flow FiO2 Time Delivery Rate 08/13/18 2.0 08:00 08/13/18 98.1 59 18 111/58 98 07:00 (75) 08/13/18 Room Air 02:00 Intake and Output 08/12/18 08/12/18 08/13/18 1515:00 23:00 07:00 IntakeIntake Total 600 ml 800 ml OutputOutput Total 700 ml BalanceBalance -100 ml 800 ml Exam pulm-cta min/mod ambulation Results/Medications Result Diagram: 08/10/18 0708 08/10/18 0708 Results 24 hrs Laboratory Tests Test 08/13/18 06:08 B-Type Natriuretic Peptide 803 H Medications Current Medications Docusate Sodium (Colace) 100 mg BID PO Last administered on 08/13/18at 09:05; Admin Dose 100 MG; Start 08/09/18 at 21:00 Senna (Senokot) 1 tab HS PO Last administered on 08/11/18at 21:24; Admin Dose 1 TAB; Start 08/09/18 at 21:00 Magnesium Hydroxide (Milk Of Mag) 30 ml BID PRN PO CONSTIPATION; Start 08/09/18 at 19:00 Lactulose (Enulose) 20 gm DAILY PRN PO CONSTIPATION; Start 08/09/18 at 19:00 Bisacodyl (Dulcolax Supp) 10 mg DAILY PRN [place] CONSTIPATION; Start 08/09/18 at 19:00 Miscellaneous Information (Pending [facility] Order For Wound Care) This patient mendoza... PRN PRN XX WOUND CARE; Start 08/09/18 at 19:00 Amiodarone HCl (Cordarone) 200 mg BID PO Last administered on 08/13/18at 08:56; Admin Dose 200 MG; Start 08/09/18 at 21:00 Pantoprazole (Protonix Tab) 40 mg DAILY@06 PO Last administered on 08/13/18at 06:44; Admin Dose 40 MG; Start 08/10/18 at 06:00 Lorazepam (Ativan) 1 mg HS PO Last administered on 08/12/18at 21:32; Admin Dose 1 MG; Start 08/09/18 at 21:00 Escitalopram Oxalate (Lexapro) 20 mg DAILY PO Last administered on 08/13/18 09:05; Admin Dose 20 MG; Start 08/10/18 at 09:00 Folic Acid (Folic Acid) 1 mg DAILY PO Last administered on 08/13/18 09:05; Admin Dose 1 MG; Start 08/10/18 at 09:00 Lubiprostone (Amitiza) 24 mcg BID PO Last administered on 08/13/18 09:05; Admin Dose 24 MCG; Start 08/09/18 at 21:00 Metoprolol Succinate (Toprol Xl) 50 mg BID PO Last administered on 08/13/18 09:06; Admin Dose 50 MG; Start 08/09/18 at 21:00 Pramipexole (Mirapex) 0.5 mg BID PO Last administered on 08/13/18 09:06; Admin Dose 0.5 MG; Start 08/09/18 at 21:00 Furosemide (Lasix) 20 mg DAILY PO Last administered on 08/13/18 09:06; Admin Dose 20 MG; Start 08/10/18 at 09:00 Clopidogrel Bisulfate (plaVIX) 75 mg DAILY PO Last administered on 08/13/18 08:55; Admin Dose 75 MG; Start 08/10/18 at 09:00 Magnesium Oxide (Mag-Ox 400) 400 mg DAILY PO Last administered on 08/13/18 09:05; Admin Dose 400 MG; Start 08/10/18 at 09:00 Carbidopa/Levodopa (Sinemet (25/ 100)) 1 tab QID PO Last administered on 08/13/18 08:56; Admin Dose 1 TAB; Start 08/09/18 at 21:00 Acetaminophen (Tylenol Tab) 650 mg Q8 PRN PO MODERATE PAIN LEVEL 4-6 Last administered on 08/10/18 15:18; Admin Dose 650 MG; Start 08/09/18 at 19:30 Apixaban (Eliquis) 2.5 mg BID PO Last administered on 08/13/18 08:56; Admin Dose 2.5 MG; Start 08/11/18 at 09:00 Nifedipine (Procardia Xl) 30 mg BID PO Last administered on 08/13/18 09:05; Admin Dose 30 MG; Start 08/11/18 at 21:00 Tramadol HCl (Ultram) 50 mg Q4H PRN PO SEVERE PAIN LEVEL 7-10 Last administered on 08/13/18at 09:11; Admin Dose 50 MG; Start 08/11/18 at 15:30 Nitrofurantoin Macrocrystals (Macrobid) 100 mg BID PO Last administered on 08/13/18at 09:04; Admin Dose 100 MG; Start 08/12/18 at 21:00 Assessment/Plan Additional Assessment/Plan Rehab- 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 Progressing with rehab program Hypertension. Dysphagia-speech therapy History of atrial fibrillation. JAMES PYLE MD Aug 13, 2018 13:16
[2018-08-13 14:00] VITALS: BP 115/60; PULSE 60; RESP 18
--- NOTE | 2018-08-13 17:02 | PN ---
Date/Time of Note Date/Time of Note DATE: 08/13/18 TIME: 17:02 Assessment/Plan VTE Prophylaxis Risk score (from Ns)>0 risk: 4 SCD applied (from Ns): Yes Pharmacological prophylaxis: NA/contraindicated Pharm contraindication: low risk/ambulating Lines/Catheters Urinary Cath still in place: No Assessment/Plan Hospital Course 82-year-old female with: 1. 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 2. Hypertension. 3. Hyperlipidemia. 4. Parkinson disease. 5. Chronic atrial fibrillation. 6 UTI ecoli resistant to cipro Plan -Continue with Plavix -ECOLI resistant to cipro> start rocephin > however switched to nitrofurantoin? -Started on Eliquis per cardiology for A. fib -Continue with statin - cw nifedipine/MTP/ Lasix/amiodarone continue with Sinemet -Follow with neuro and cardiac recs -PT/OT Result Diagram: 08/10/18 0708 08/10/18 0708 Results 24hrs Laboratory Tests Test 08/13/18 06:08 B-Type Natriuretic Peptide 803 H Subjective 24 Hr Interval Summary Free Text/Dictation no new events Exam/Review of Systems Exam Vitals Vital Signs Date Temp Pulse Resp B/P (MAP) Pulse Ox O2 O2 Flow FiO2 Time Delivery Rate 08/13/18 98.1 60 18 115/60 98 14:00 (78) 08/13/18 2.0 08:00 08/13/18 Room Air 02:00 Intake and Output 08/12/18 08/12/18 08/13/18 1515:00 23:00 07:00 IntakeIntake Total 600 ml 800 ml OutputOutput Total 700 ml BalanceBalance -100 ml 800 ml Exam Exam GENERAL: The patient is awake, alert, oriented, does not appear in any acute distress. HEENT: Pupils are equal, round, reactive to light. NECK: Supple. No JVD. HEART: Irregularly irregular. LUNGS: Clear to auscultate bilaterally. ABDOMEN: Soft, nondistended, nontender, positive normoactive bowel sounds. NEUROLOGIC: The patient is awake, alert, oriented, follows commands, responds appropriately. The patient has 5/5 strength in bilateral upper extremities and 4/5 strength in bilateral lower extre Results Results 24hrs Laboratory Tests Test 08/13/18 06:08 B-Type Natriuretic Peptide 803 H Medications Medication Current Medications Docusate Sodium (Colace) 100 mg BID PO Last administered on 08/13/18 09:05; Admin Dose 100 MG; Start 08/09/18 at 21:00 Senna (Senokot) 1 tab HS PO Last administered on 08/11/18 21:24; Admin Dose 1 TAB; Start 08/09/18 at 21:00 Magnesium Hydroxide (Milk Of Mag) 30 ml BID PRN PO CONSTIPATION; Start 08/09/18 at 19:00 Lactulose (Enulose) 20 gm DAILY PRN PO CONSTIPATION; Start 08/09/18 at 19:00 Bisacodyl (Dulcolax Supp) 10 mg DAILY PRN [place] CONSTIPATION; Start 08/09/18 at 19:00 [facility] This patient mendoza... PRN PRN XX WOUND CARE; Start 08/09/18 at 19:00 Amiodarone HCl (Cordarone) 200 mg BID PO Last administered on 08/13/18 08:56; Admin Dose 200 MG; Start 08/09/18 at 21:00 Pantoprazole (Protonix Tab) 40 mg DAILY@06 PO Last administered on 08/13/18 06:44; Admin Dose 40 MG; Start 08/10/18 at 06:00 Lorazepam (Ativan) 1 mg HS PO Last administered on 08/12/18 21:32; Admin Dose 1 MG; Start 08/09/18 at 21:00 Escitalopram Oxalate (Lexapro) 20 mg DAILY PO Last administered on 08/13/18 09:05; Admin Dose 20 MG; Start 08/10/18 at 09:00 Folic Acid (Folic Acid) 1 mg DAILY PO Last administered on 08/13/18 09:05; Admin Dose 1 MG; Start 08/10/18 at 09:00 Lubiprostone (Amitiza) 24 mcg BID PO Last administered on 08/13/18 09:05; Admin Dose 24 MCG; Start 08/09/18 at 21:00 Metoprolol Succinate (Toprol Xl) 50 mg BID PO Last administered on 08/13/18 09:06; Admin Dose 50 MG; Start 08/09/18 at 21:00 Pramipexole (Mirapex) 0.5 mg BID PO Last administered on 08/13/18 09:06; Admin Dose 0.5 MG; Start 08/09/18 at 21:00 Furosemide (Lasix) 20 mg DAILY PO Last administered on 08/13/18 09:06; Admin Dose 20 MG; Start 08/10/18 at 09:00 Clopidogrel Bisulfate (plaVIX) 75 mg DAILY PO Last administered on 08/13/18 08:55; Admin Dose 75 MG; Start 08/10/18 at 09:00 Magnesium Oxide (Mag-Ox 400) 400 mg DAILY PO Last administered on 08/13/18 09:05; Admin Dose 400 MG; Start 08/10/18 at 09:00 Carbidopa/Levodopa (Sinemet (25/ )) 1 tab QID PO Last administered on 13:27; Admin Dose 1 TAB; Start 08/09/18 at 21:00 Acetaminophen (Tylenol Tab) 650 mg Q8 PRN PO MODERATE PAIN LEVEL 4-6 Last administered on 08/10/18 15:18; Admin Dose 650 MG; Start 08/09/18 at 19:30 Apixaban (Eliquis) 2.5 mg BID PO Last administered on 08/13/18 08:56; Admin Dose 2.5 MG; Start 08/11/18 at 09:00 Nifedipine (Procardia Xl) 30 mg BID PO Last administered on 08/13/18 09:05; Ad min Dose 30 MG; Start 08/11/18 at 21:00 Tramadol HCl (Ultram) 50 mg Q4H PRN PO SEVERE PAIN LEVEL 7-10 Last administered on 08/13/18 09:11; Admin Dose 50 MG; Start 08/11/18 at 15:30 Nitrofurantoin Macrocrystals (Macrobid) 100 mg BID PO Last administered on 08/13/18 09:04; Admin Dose 100 MG; Start 08/12/18 at 21:00 CORI JON MD Aug 13, 2018 17:02
--- NOTE | 2018-08-13 17:50 | CONS ---
Assessment/Plan Assessment/Plan Hospital Course (Demo Recall) IMPRESSION: 1. Paroxysmal atrial fibrillation on amiodarone -in SR by ecg 08/11 2. Hypertension, mildly elevated. 3. Dyslipidemia, not on statin at this time. 4. Status post acute cerebrovascular accident, in rehab now. 5. Anemia. 6. Parkinson. 7. Psychiatric disorder. Recc: -Now on eliquis -Continue BB/amiodarine at current doses as tolerated -Continue sinemet -PT/OT -Follow volume status clsoely and increase lasix diuresis Consultation Date/Type/Reason Admit Date/Time Aug 09, 2018 at 18:10 Initial Consult Date 08/10/18 Type of Consult Cardiology Reason for Consultation CHF Requesting Provider: CORI JON MD Date/Time of Note DATE: 08/13/18 TIME: 17:48 Exam/Review of Systems Vital Signs Vitals Vital Signs Date Temp Pulse Resp B/P (MAP) Pulse Ox O2 O2 Flow FiO2 Time Delivery Rate 08/13/18 98.1 60 18 115/60 98 14:00 (78) 08/13/18 2.0 08:00 08/13/18 Room Air 02:00 Intake and Output 08/12/18 08/12/18 08/13/18 1414:59 22:59 06:59 IntakeIntake Total 600 ml 800 ml OutputOutput Total 700 ml BalanceBalance -100 ml 800 ml Exam Exam Review of Systems: CONSTITUTIONAL: No fevers, chills. PULMONARY: No sob CARDIOVASCULAR: No chest pain/palpitations GASTROINTESTINAL: No nausea/vomiting. GENITOURINARY: No hematuria/dysuria. MUSCULOSKELETAL: No myagias/arthalgias. PSYCHIATRIC: The patient denies depression. NEUROLOGIC: No weakness Constitutional: alert Psych: no complaints Head: normocephalic ENMT: mucosa pink and moist Neck: supple, jvd (9 cm water) Respiratory: diminished breath sounds (at bases/B) Cardiovascular: regular rate and rhythm Gastrointestinal: soft, non-tender Musculoskeletal: muscle tone (normal) Extremities: pitting pedal edema (bilateral trace) Neurological: focal weakness (none) Labs Result Diagram: 08/10/18 0708 08/10/18 0708 Results 24hrs Laboratory Tests Test 08/13/18 06:08 B-Type Natriuretic Peptide 803 H Medications Medications Current Medications Docusate Sodium (Colace) 100 mg BID PO Last administered on 08/13/18 09:05; Admin Dose 100 MG; Start 08/09/18 at 21:00 Senna (Senokot) 1 tab HS PO Last administered on 08/11/18 21:24; Admin Dose 1 TAB; Start 08/09/18 at 21:00 Magnesium Hydroxide (Milk Of Mag) 30 ml BID PRN PO CONSTIPATION; Start 08/09/18 at 19:00 Lactulose (Enulose) 20 gm DAILY PRN PO CONSTIPATION; Start 08/09/18 at 19:00 Bisacodyl (Dulcolax Supp) 10 mg DAILY PRN [place] CONSTIPATION; Start 08/09/18 at 19:00 Miscellaneous Information (Pending [facility] Order For Wound Care) This patient mendoza... PRN PRN XX WOUND CARE; Start 08/09/18 at 19:00 Amiodarone HCl (Cordarone) 200 mg BID PO Last administered on 08/13/18 08:56; Admin Dose 200 MG; Start 08/09/18 at 21:00 Pantoprazole (Protonix Tab) 40 mg DAILY@06 PO Last administered on 08/13/18 06:44; Admin Dose 40 MG; Start 08/10/18 at 06:00 Lorazepam (Ativan) 1 mg HS PO Last administered on 08/12/18 21:32; Admin Dose 1 MG; Start 08/09/18 at 21:00 Escitalopram Oxalate (Lexapro) 20 mg DAILY PO Last administered on 08/13/18 09:05; Admin Dose 20 MG; Start 08/10/18 at 09:00 Folic Acid (Folic Acid) 1 mg DAILY PO Last administered on 08/13/18 09:05; Admin Dose 1 MG; Start 08/10/18 at 09:00 Lubiprostone (Amitiza) 24 mcg BID PO Last administered on 08/13/18 09:05; Admin Dose 24 MCG; Start 08/09/18 at 21:00 Metoprolol Succinate (Toprol Xl) 50 mg BID PO Last administered on 08/13/18 09:06; Admin Dose 50 MG; Start 08/09/18 at 21:00 Pramipexole (Mirapex) 0.5 mg BID PO Last administered on 4/18/19at 09:06; Admin Dose 0.5 MG; Start 08/09/18 at 21:00 Furosemide (Lasix) 20 mg DAILY PO Last administered on 08/13/18 09:06; Admin Dose 20 MG; Start 08/10/18 at 09:00 Clopidogrel Bisulfate (plaVIX) 75 mg DAILY PO Last administered on 08/13/18 08:55; Admin Dose 75 MG; Start 08/10/18 at 09:00 Magnesium Oxide (Mag-Ox 400) 400 mg DAILY PO Last administered on 08/13/18 09:05; Admin Dose 400 MG; Start 08/10/18 at 09:00 Carbidopa/Levodopa (Sinemet (25/ 100)) 1 tab QID PO Last administered on 08/13/18 13:27; Admin Dose 1 TAB; Start 08/09/18 at 21:00 Acetaminophen (Tylenol Tab) 650 mg Q8 PRN PO MODERATE PAIN LEVEL 4-6 Last administered on 08/10/18 15:18; Admin Dose 650 MG; Start 08/09/18 at 19:30 Apixaban (Eliquis) 2.5 mg BID PO Last administered on 08/13/18 08:56; Admin Dose 2.5 MG; Start 08/11/18 at 09:00 Nifedipine (Procardia Xl) 30 mg BID PO Last administered on 08/13/18 09:05; Admin Dose 30 MG; Start 08/11/18 at 21:00 Tramadol HCl (Ultram) 50 mg Q4H PRN PO SEVERE PAIN LEVEL 7-10 Last administered on 08/13/18 09:11; Admin Dose 50 MG; Start 08/11/18 at 15:30 Nitrofurantoin Macrocrystals (Macrobid) 100 mg BID PO Last administered on 08/13/18 09:04; Admin Dose 100 MG; Start 08/12/18 at 21:00 BETTY CORDOBA Aug 13, 2018 17:50
[2018-08-13 20:11] VITALS: BP 117/58; PULSE 58; RESP 18
[2018-08-13] MEDS: LORAZEPAM 0.5 MG TAB PO SCH (21:11)
[2018-08-13] MEDS: SENNA TAB PO SCH (21:12)
--- NOTE | 2018-08-13 21:20 | CONS ---
DATE OF ADMISSION: 08/09/2018 DATE OF CONSULTATION: HISTORY OF PRESENT ILLNESS: The patient is an 82-year-old status post acute onset of subcortical str rosemarie, right-sided weakness, decreased gait, hypertension, atrial fibrillation, in which the patient wa s admitted for acute rehab for continuation of treatment. CURRENT MEDICATIONS: Include: 1. Lasix 20 mg twice a day. 2. Nitrofurantoin 100 mg twice a day. 3. Procardia-XL 30 mg twice a day. 4. Ultram 50 mg every 8 hours. 5. Eliquis 2.5 mg twice a day. 6. Lexapro 20 mg once a day. 7. Folic acid 1 mg once a day. 8. Plavix 75 mg once a day. 9. Protonix 40 mg once a day. 10. Colace 100 mg twice a day. 11. Cordarone 200 mg twice a day. 12. Ativan 1 mg at night as needed. 13. Toprol-XL 50 mg twice a day. 14. Mirapex 0.5 mg twice a day. 15. Sinemet 100/25 mg 4 times a day. 16. Tylenol 650 mg. 17. Lactulose 20 grams. PHYSICAL EXAMINATION: GENERAL: Today, the patient is alert, awake and follows simple commands CRANIAL NERVES: Cranial nerve II: Pupils are equal on both sides, reactive to light. Cranial nerve s III, IV and : Extraocular muscles are intact. Cranial nerve V: Equal sensation to face. Crani al nerve VII: Symmetrical face. Cranial nerve VIII: Decreased hearing bilaterally. Cranial nerve IX and X: Elevates palate. Cranial nerve XI: Elevates shoulder 5/5. Cranial nerve XII: With stra ight tongue. MOTOR: Right side is 4/5. Sensation decreased for right side for light touch and temperature. COORDINATION: [id number] test is intact. HEART: Regular rate and rhythm. LUNGS: Equal breath sounds. ABDOMEN: Soft, relaxed, nondistended, no tenderness. ASSESSMENT AND PLAN: 1. The patient is an 82-year-old status post acute stroke. Continue the patient on Plavix for strok e prophylaxis. 2. History of atrial fibrillation in which the patient on metoprolol, Cordarone as well as Lovenox. 3. History of parkinsonism, in which the patient is on Sinemet 100/25 mg 3 times a day. 4. Hypertension. Keep the blood pressure level 140/90 or less. 5. Gait difficulty. Follow up the patient with acute rehabilitation, occupation therapy and speech therapy. 6. 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 We will continue the reji haile's parkinsonism medication and follow up the patient with mini-mental status. Dictated By: COLIN LOW MD NA/NTS Conf#: [id number] DID#: [id number] CC: CORI JON; BETTY CORDOBA MD; JAMES PYLE MD;*EndCC*
[2018-08-14 02:00] VITALS: BP 114/60; PULSE 61; RESP 18
[2018-08-14] MEDS: PANTOPRAZOLE (EC) 40 MG TAB PO SCH (06:31)
[2018-08-14 07:30] VITALS: BP 138/60; PULSE 52; RESP 18
[2018-08-14] MEDS: PRAMIPEXOLE 0.25 MG TAB PO SCH ×2 (08:42→21:46)
[2018-08-14] MEDS: traMADol 50 MG TAB PO PRN ×3 (08:42→17:26)
[2018-08-14] MEDS: FOLIC ACID 1 MG TAB PO SCH (08:43)
[2018-08-14] MEDS: MAGNESIUM OXIDE 400 MG TAB PO SCH (08:43)
[2018-08-14] MEDS: DOCUSATE SODIUM 100 MG CAP PO SCH ×2 (08:43→21:42)
[2018-08-14] MEDS: ESCITALOPRAM 10 MG TAB PO SCH (08:43)
[2018-08-14] MEDS: AMIODARONE 200 MG TAB PO SCH ×2 (08:44→21:00)
[2018-08-14] MEDS: APIXABAN 5 MG TABLET PO SCH ×2 (08:44→21:44)
[2018-08-14] MEDS: FUROSEMIDE 20 MG TAB PO SCH ×2 (08:44→21:46)
[2018-08-14] MEDS: NITROFURANTOIN (SR) 100 MG CAP PO SCH ×2 (08:45→21:46)
[2018-08-14] MEDS: LUBIPROSTONE 24 MCG CAP PO SCH ×2 (08:45→21:42)
[2018-08-14] MEDS: NIFEdipine (XL) 30 MG TAB PO SCH ×2 (08:46→21:49)
[2018-08-14] MEDS: CLOPIDOGREL 75 MG TAB PO SCH (08:46)
[2018-08-14] MEDS: CARBIDOPA/LEVODOPA (25/100) TAB PO SCH ×4 (08:47→21:49)
[2018-08-14] MEDS: METOPROLOL (XL) 50 MG TAB PO SCH ×2 (08:48→21:00)
--- NOTE | 2018-08-14 13:41 | PN ---
Date/Time of Note Date/Time of Note DATE: 08/14/18 TIME: 13:40 Assessment/Plan VTE Prophylaxis Risk score (from [facility] [place])>0 risk: 4 SCD applied (from [facility] [place]): Yes Pharmacological prophylaxis: apixaban Lines/Catheters Urinary Cath still in place: No Assessment/Plan Hospital Course 1. 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 2. Hypertension. 3. Hyperlipidemia. 4. Parkinson disease. 5. Chronic atrial fibrillation. 6 UTI e.coli resistant to cipro Assessment/Plan -Continue with Plavix -c/w Eliquis per cardiology for A. fib -Continue with statin -bowel care - cw nifedipine/MTP/ Lasix/amiodarone -continue with Sinemet -Follow with neuro and cardiac recs -PT/OT Result Diagram: 08/10/1870708/10/18707 Subjective 24 Hr Interval Summary Gastrointestinal: constipation Exam/Review of Systems Exam Vitals Vital Signs Date Temp Pulse Resp B/P (MAP) Pulse Ox O2 O2 Flow FiO2 Time Delivery Rate 08/14/18 2.0 10:51 08/14/18 97.8 52 18 138/60 100 Room Air 07:30 (86) Intake and Output 08/13/18 08/13/18 08/14/18 1515:00 23:00 07:00 IntakeIntake Total 1200 ml 1000 ml OutputOutput Total 600 ml BalanceBalance 600 ml 1000 ml Constitutional: alert, oriented Respiratory: clear to auscultation Cardiovascular: regular rate and rhythm Gastrointestinal: soft Musculoskeletal: muscle weakness Medications Medication Current Medications Docusate Sodium (Colace) 100 mg BID PO Last administered on 08/14/18at 08:43; Admin Dose 100 MG; Start 08/09/18 at 21:00 Senna (Senokot) 1 tab HS PO Last administered on 08/13/18at 21:12; Admin Dose 1 TAB; Start 08/09/18 at 21:00 Magnesium Hydroxide (Milk Of Mag) 30 ml BID PRN PO CONSTIPATION; Start 08/09/18 at 19:00 Lactulose (Enulose) 20 gm DAILY PRN PO CONSTIPATION; Start 08/09/18 at 19:00 Bisacodyl (Dulcolax Supp) 10 mg DAILY PRN [place] CONSTIPATION; Start 08/09/18 at 19:00 [facility] This patient mendoza... PRN PRN XX WOUND CARE; Start 08/09/18 at 19:00 Amiodarone HCl (Cordarone) 200 mg BID PO Last administered on 08/14/18 08:44; Admin Dose 200 MG; Start 08/09/18 at 21:00 Pantoprazole (Protonix Tab) 40 mg DAILY@06 PO Last administered on 08/14/18 06:31; Admin Dose 40 MG; Start 08/10/18 at 06:00 Lorazepam (Ativan) 1 mg HS PO Last administered on 08/13/18 21:11; Admin Dose 1 MG; Start 08/09/18 at 21:00 Escitalopram Oxalate (Lexapro) 20 mg DAILY PO Last administered on 08/14/18 0 8:43; Admin Dose 20 MG; Start 08/10/18 at 09:00 Folic Acid (Folic Acid) 1 mg DAILY PO Last administered on 08/14/18 08:43; Admin Dose 1 MG; Start 08/10/18 at 09:00 Lubiprostone (Amitiza) 24 mcg BID PO Last administered on 08/14/18 08:45; Admin Dose 24 MCG; Start 08/09/18 at 21:00 Metoprolol Succinate (Toprol Xl) 50 mg BID PO Last administered on 08/14/18 08:48; Admin Dose 50 MG; Start 08/09/18 at 21:00 Pramipexole (Mirapex) 0.5 mg BID PO Last administered on 08/14/18 08:42; Admin Dose 0.5 MG; Start 08/09/18 at 21:00 Clopidogrel Bisulfate (plaVIX) 75 mg DAILY PO Last administered on 08/14/18 08:46; Admin Dose 75 MG; Start 08/10/18 at 09:00 Magnesium Oxide (Mag-Ox 400) 400 mg DAILY PO Last administered on 08/14/18 08:43; Admin Dose 400 MG; Start 08/10/18 at 09:00 Carbidopa/Levodopa (Sinemet (25/ 100)) 1 tab QID PO Last administered on 08/14/18 12:47; Admin Dose 1 TAB; Start 08/09/18 at 21:00 Acetaminophen (Tylenol Tab) 650 mg Q8 PRN PO MODERATE PAIN LEVEL 4-6 Last administered on 08/10/18 15:18; Admin Dose 650 MG; Start 08/09/18 at 19:30 Apixaban (Eliquis) 2.5 mg BID PO Last administered on 08/14/18 08:44; Admin Dose 2.5 MG; Start 08/11/18 at 09:00 Nifedipine (Procardia Xl) 30 mg BID PO Last administered on 08/14/18 08:46; Admin Dose 30 MG; Start 08/11/18 at 21:00 Tramadol HCl (Ultram) 50 mg Q4H PRN PO SEVERE PAIN LEVEL 7-10 Last administered on 08/14/18 12:47; Admin Dose 50 MG; Start 08/11/18 at 15:30 Nitrofurantoin Macrocrystals (Macrobid) 100 mg BID PO Last administered on 08/14/18 08:45; Admin Dose 100 MG; Start 08/12/18 at 21:00 Furosemide (Lasix) 20 mg BID PO Last administered on 08/14/18 08:44; Admin Dose 20 MG; Start 08/13/18 at 21:00 JUSTIN NAVAROR Aug 14, 2018 13:41
[2018-08-14 14:00] VITALS: BP 108/50; PULSE 55; RESP 18
--- NOTE | 2018-08-14 14:33 | PN ---
Date/Time of Note Date/Time of Note DATE: 08/14/18 TIME: 14:33 Subjective No new complaints Objective Vital Signs Date Temp Pulse Resp B/P (MAP) Pulse Ox O2 O2 Flow FiO2 Time Delivery Rate 08/14/18 2.0 10:51 08/14/18 97.8 52 18 138/60 100 Room Air 07:30 (86) Intake and Output 08/13/18 08/13/18 08/14/18 1515:00 23:00 07:00 IntakeIntake Total 1200 ml 1000 ml OutputOutput Total 600 ml BalanceBalance 600 ml 1000 ml Exam pulm-cta min assist ambulation Results/Medications Result Diagram: 08/10/1870708/10/18707 Medications Current Medications Docusate Sodium (Colace) 100 mg BID PO Last administered on 08/14/18 08:43; Admin Dose 100 MG; Start 08/09/18 at 21:00 Senna (Senokot) 1 tab HS PO Last administered on 08/13/18 21:12; Admin Dose 1 TAB; Start 08/09/18 at 21:00 Magnesium Hydroxide (Milk Of Mag) 30 ml BID PRN PO CONSTIPATION; Start 08/09/18 at 19:00 Lactulose (Enulose) 20 gm DAILY PRN PO CONSTIPATION; Start 08/09/18 at 19:00 Bisacodyl (Dulcolax Supp) 10 mg DAILY PRN [place] CONSTIPATION; Start 08/09/18 at 19:00 Miscellaneous Information (Pending [facility] Order For Wound Care) This patient mendoza... PRN PRN XX WOUND CARE; Start 08/09/18 at 19:00 Amiodarone HCl (Cordarone) 200 mg BID PO Last administered on 08/14/18 08:44; Admin Dose 200 MG; Start 08/09/18 at 21:00 Pantoprazole (Protonix Tab) 40 mg DAILY@06 PO Last administered on 08/14/18 06:31; Admin Dose 40 MG; Start 08/10/18 at 06:00 Lorazepam (Ativan) 1 mg HS PO Last administered on 08/13/18 21:11; Admin Dose 1 MG; Start 08/09/18 at 21:00 Escitalopram Oxalate (Lexapro) 20 mg DAILY PO Last administered on 08/14/18 08:43; Admin Dose 20 MG; Start 08/10/18 at 09:00 Folic Acid (Folic Acid) 1 mg DAILY PO Last administered on 08/14/18 08:43; Admin Dose 1 MG; Start 08/10/18 at 09:00 Lubiprostone (Amitiza) 24 mcg BID PO Last administered on 08/14/18 08:45; Admin Dose 24 MCG; Start 08/09/18 at 21:00 Metoprolol Succinate (Toprol Xl) 50 mg BID PO Last administered on 08/14/18 08:48; Admin Dose 50 MG; Start 08/09/18 at 21:00 Pramipexole (Mirapex) 0.5 mg BID PO Last administered on 08/14/18 08:42; Admin Dose 0.5 MG; Start 08/09/18 at 21:00 Clopidogrel Bisulfate (plaVIX) 75 mg DAILY PO Last administered on 08/14/18 08:46; Admin Dose 75 MG; Start 08/10/18 at 09:00 Magnesium Oxide (Mag-Ox 400) 400 mg DAILY PO Last administered on 08/14/18 08:43; Admin Dose 400 MG; Start 08/10/18 at 09:00 Carbidopa/Levodopa (Sinemet (25/ 100)) 1 tab QID PO Last administered on 08/14/18 12:47; Admin Dose 1 TAB; Start 08/09/18 at 21:00 Acetaminophen (Tylenol Tab) 650 mg Q8 PRN PO MODERATE PAIN LEVEL 4-6 Last administered on 08/10/18 15:18; Admin Dose 650 MG; Start 08/09/18 at 19:30 Apixaban (Eliquis) 2.5 mg BID PO Last administered on 08/14/18 08:44; Admin Dose 2.5 MG; Start 08/11/18 at 09:00 Nifedipine (Procardia Xl) 30 mg BID PO Last administered on 08/14/18 08:46; Admin Dose 30 MG; Start 08/11/18 at 21:00 Tramadol HCl (Ultram) 50 mg Q4H PRN PO SEVERE PAIN LEVEL 7-10 Last administered on 08/14/18 12:47; Admin Dose 50 MG; Start 08/11/18 at 15:30 Nitrofurantoin Macrocrystals (Macrobid) 100 mg BID PO Last administered on 08/14/18at 08:45; Admin Dose 100 MG; Start 08/12/18 at 21:00 Furosemide (Lasix) 20 mg BID PO Last administered on 08/14/18at 08:44; Admin Dose 20 MG; Start 08/13/18 at 21:00 Assessment/Plan Additional Assessment/Plan Rehab- 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 Progressing with rehab therapies Hypertension. Dysphagia-speech therapy History of atrial fibrillation. JAMES PYLE MD Aug 14, 2018 14:33
[2018-08-14] MEDS ORDERED: LUBIPROSTONE 8 MCG CAPSULE PO PRN (15:00)
--- NOTE | 2018-08-14 17:46 | CONS ---
Assessment/Plan Assessment/Plan Hospital Course (Demo Recall) IMPRESSION: 1. Paroxysmal atrial fibrillation on amiodarone -in SR by ecg 08/11 2. Hypertension, mildly elevated. 3. Dyslipidemia, not on statin at this time. 4. Status post acute cerebrovascular accident, in rehab now. 5. Anemia. 6. Parkinson. 7. Psychiatric disorder. Recc: -Now on eliquis -Continue BB/amiodarine at current doses as tolerated -Continue sinemet -PT/OT -Follow volume status clsoely on lasix now BID Consultation Date/Type/Reason Admit Date/Time Aug 09, 2018 at 18:10 Initial Consult Date 08/10/18 Type of Consult Cardiology Reason for Consultation CHF Requesting Provider: CORI JON MD Date/Time of Note DATE: 08/14/18 TIME: 17:43 Exam/Review of Systems Vital Signs Vitals Vital Signs Date Temp Pulse Resp B/P (MAP) Pulse Ox O2 O2 Flow FiO2 Time Delivery Rate 08/14/18 98.6 55 18 108/50 97 Room Air 14:00 (69) 08/14/18 2.0 10:51 Intake and Output 08/13/18 08/13/18 08/14/18 1515:00 23:00 07:00 IntakeIntake Total 1200 ml 1000 ml OutputOutput Total 600 ml BalanceBalance 600 ml 1000 ml Exam Exam Review of Systems: CONSTITUTIONAL: No fevers, chills. PULMONARY: No sob CARDIOVASCULAR: No chest pain/palpitations GASTROINTESTINAL: No nausea/vomiting. GENITOURINARY: No hematuria/dysuria. MUSCULOSKELETAL: No myagias/arthalgias. PSYCHIATRIC: The patient denies depression. NEUROLOGIC: No weakness Constitutional: alert Psych: no complaints Head: normocephalic ENMT: mucosa pink and moist Neck: supple, jvd (9 cm water) Respiratory: diminished breath sounds Cardiovascular: regular rate and rhythm Gastrointestinal: soft, non-tender Musculoskeletal: muscle tone (normal) Extremities: edema (trace/B) Neurological: other (No focal deficits) Labs Result Diagram: 08/10/18 0708 08/10/18 0708 Medications Medications Current Medications Docusate Sodium (Colace) 100 mg BID PO Last administered on 08/14/18at 08:43; Admin Dose 100 MG; Start 08/09/18 at 21:00 Senna (Senokot) 1 tab HS PO Last administered on 08/13/18 21:12; Admin Dose 1 TAB; Start 08/09/18 at 21:00 Magnesium Hydroxide (Milk Of Mag) 30 ml BID PRN PO CONSTIPATION; Start 08/09/18 at 19:00 Lactulose (Enulose) 20 gm DAILY PRN PO CONSTIPATION; Start 08/09/18 at 19:00 Bisacodyl (Dulcolax Supp) 10 mg DAILY PRN [place] CONSTIPATION; Start 08/09/18 at 19:00 Miscellaneous Information (Pending Santyl Order For Wound Care) This patient mendoza... PRN PRN XX WOUND CARE; Start 08/09/18 at 19:00 Amiodarone HCl (Cordarone) 200 mg BID PO Last administered on 08/14/18 08:44; Admin Dose 200 MG; Start 08/09/18 at 21:00 Pantoprazole (Protonix Tab) 40 mg DAILY@06 PO Last administered on 08/14/18 06:31; Admin Dose 40 MG; Start 08/10/18 at 06:00 Lorazepam (Ativan) 1 mg HS PO Last administered on 08/13/18 21:11; Admin Dose 1 MG; Start 08/09/18 at 21:00 Escitalopram Oxalate (Lexapro) 20 mg DAILY PO Last administered on 08/14/18 08:43; Admin Dose 20 MG; Start 08/10/18 at 09:00 Folic Acid (Folic Acid) 1 mg DAILY PO Last administered on 08/14/18 08:43; Admin Dose 1 MG; Start 08/10/18 at 09:00 Lubiprostone (Amitiza) 24 mcg BID PO Last administered on 08/14/18 08:45; Admin Dose 24 MCG; Start 08/09/18 at 21:00 Metoprolol Succinate (Toprol Xl) 50 mg BID PO Last administered on 08/14/18 08:48; Admin Dose 50 MG; Start 08/09/18 at 21:00 Pramipexole (Mirapex) 0.5 mg BID PO Last administered on 08/14/18 08:42; Admin Dose 0.5 MG; Start 08/09/18 at 21:00 Clopidogrel Bisulfate (plaVIX) 75 mg DAILY PO Last administered on 08/14/18 08:46; Admin Dose 75 MG; Start 08/10/18 at 09:00 Magnesium Oxide (Mag-Ox 400) 400 mg DAILY PO Last administered on 08/14/18 08:43; Admin Dose 400 MG; Start 08/10/18 at 09:00 Carbidopa/Levodopa (Sinemet (25/ 100)) 1 tab QID PO Last administered on 08/14/18 17:26; Admin Dose 1 TAB; Start 08/09/18 at 21:00 Acetaminophen (Tylenol Tab) 650 mg Q8 PRN PO MODERATE PAIN LEVEL 4-6 Last administered on 08/10/18 15:18; Admin Dose 650 MG; Start 08/09/18 at 19:30 Apixaban (Eliquis) 2.5 mg BID PO Last administered on 08/14/18 08:44; Admin Dose 2.5 MG; Start 08/11/18 at 09:00 Nifedipine (Procardia Xl) 30 mg BID PO Last administered on 08/14/18 08:46; Admin Dose 30 MG; Start 08/11/18 at 21:00 Tramadol HCl (Ultram) 50 mg Q4H PRN PO SEVERE PAIN LEVEL 7-10 Last administered on 08/14/18 17:26; Admin Dose 50 MG; Start 08/11/18 at 15:30 Nitrofurantoin Macrocrystals (Macrobid) 100 mg BID PO Last administered on 08/14/18 08:45; Admin Dose 100 MG; Start 08/12/18 at 21:00 Furosemide (Lasix) 20 mg BID PO Last administered on 08/14/18 08:44; Admin Dose 20 MG; Start 08/13/18 at 21:00 Lubiprostone (Amitiza) 8 mcg BID PRN PO constipation; Start 08/14/18 at 15:00 BETTY CORDOBA Aug 14, 2018 17:46
[2018-08-14 20:00] VITALS: BP 138/69; PULSE 58
--- NOTE | 2018-08-14 20:33 | CONS ---
DATE OF ADMISSION: 08/09/2018 DATE OF CONSULTATION: 08/14/2018 TYPE OF CONSULTATION: Psychological. REFERRING PHYSICIAN: James Alas M.D. CONSULTING PSYCHOLOGIST: Charlette Batista, PhD. HISTORY OF PRESENT ILLNESS: The patient is an 82-year-old female. The patient has a history of mult iple medical problems including Parkinson's disease, atrial fibrillation and hypertension. The kaylie tom was admitted with an altered mental status to [facility]. The patient's workup wa s consistent with a left parietal infarct, cerebrovascular accident. The patient was cleared medical ly and then sent to [facility] for acute multidisciplinary rehabil itation. The patient is motivated to get better and does want to return to her previous level of fun ctioning. FAMILY AND SOCIAL HISTORY: The patient reports that she lives in an apartment with her son. The pat damon also says she has 24/7 nursing care. MEDICATIONS: The patient is currently on Ativan 1 mg at bedtime. SUBSTANCE USE: The patient says that she does not smoke. The patient says that she does not use alc ohol or other drugs. MENTAL STATUS EXAMINATION: APPEARANCE: The patient was seen in bed. She appears to be of average height and weight. The kaylie tom is right-handed. BEHAVIOR: The patient was cooperative during the consultation. The patient did attempt to answer al l questions presented to her by the interviewer. MOOD AND AFFECT: The patient's mood appears to be slightly depressed. Affect does appear to be slig htly anxious. PERCEPTION: The patient reports no hallucinations or delusions. The patient was alert to person, pl nikia, situation and time. MEMORY AND COGNITION: The patient's memory and cognition are slightly impaired. She was able to say the month and the year. The patient was able to do 1 serial 7 subtraction from 100, but then made a n error and could not correct after that. The patient thought that the president of the [employer] was [place]. The patient did seem confused and did appear to be having some likely vascular dementia and/or dementia related to her Parkinson's disease. INTELLIGENCE: Intelligence would appear to fall in the average range when she was functioning adequa tely. INSIGHT: Fair. JUDGMENT: Fair. THOUGHT CONTENT: The patient is concerned about her present medical condition. The patient does wan t to return home after discharge and function as well as she can. DISCUSSION: The patient may be able to benefit from some cognitive/behavioral psychotherapy while sh gareth is on the unit. The psychotherapy would focus on underlying level of frustration about her medical problems. The patient may be able to benefit from some cognitive therapy that relates to using her memory and possibly can benefit from memory book use. DIAGNOSTIC IMPRESSION: 1. 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 2. F01.50, vascular dementia without behavioral disturbance. Thank you very much, Dr. Randall Alas, for referring this individual. Please do not hesitate to sonu duff if you have any additional questions. Dictated By: CHARLETTE BATISTA PHD RK/RYAN Conf#: [id number] DID#: [id number] CC: JAMES ALAS MD; BETTY CORDOBA MD; CORI JON;*EndCC*
--- NOTE | 2018-08-14 20:56 | HKNOTE ---
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 The patient has acute rehab for gait, balance and increase of her daily activity and improve her speech and cognitive function. MEDICATIONS: The patient's current medications include; 1. Amitiza 8 mcg twice a day. 2. Lasix 20 mg twice a day. 3. Procardia-XL 30 mg twice a day. 4. Ultram 50 mg every 6 hours. 5. Eliquis 2.5 mg twice a day. 6. Lexapro 20 mg once a day. 7. Folic acid 1 mg once a day. 8. Plavix 75 mg once a day. 9. Protonix 40 mg once a day. 10. Colace 100 mg twice a day 11. Amiodarone 200 mg twice a day. 12. Ativan 1 mg at night. 13. Toprol 50 mg XL twice a day. 14. Mirapex 0.5 mg twice a day. 15. Sinemet 100/25 mg 4 times a day. 16. Milk of magnesium as needed. 17. Lactulose 20 mg once a day. 18. Nitrofurantoin 100 mg twice a day. 19. Senna 1 tablet at night. PHYSICAL EXAMINATION: GENERAL: Today, the patient is alert, awake, following simple commands. CRANIAL NERVES: Cranial nerve II: Pupils equal on both sides, reactive to light. Cranial nerves III, IV, and : Extraocular muscles intact. Cranial V: Equal sensation to face. Cranial nerve VII: Decreased nasolabial fold on the right side. Sensation decreased on the right side for light touch and temperature. COORDINATION: Najhqd-[id number] test intact. HEART: Regular rate and rhythm. LUNGS: Equal breath sounds. ABDOMEN: Soft, relaxed, nondistended. No tenderness. ASSESSMENT AND PLAN: 1. The patient is an 82-year-old status post acute stroke with left subcortical ischemic stroke in which the patient is on Plavix. 2. History of atrial fibrillation with the patient on metoprolol in and started on Eliquis 3. History of parkinsonism. Keep the patient on Sinemet 100/25 mg 3 times a day. 4. Hypertension. Keep the blood pressure at the level of 140/90. 5. Gait difficulty. Follow up the patient with acute rehab team. 6. History of underlying dementia of possible parkinsonism. The patient will follow an outpatient clinic for that. Dictated By: COLIN LOW MD NA/NTS Conf#: [id number] DID#: [id number] CC: BETTY CORDOBA MD; CORI JON; JAMES PYLE MD;*EndCC* MTDD
[2018-08-14] MEDS: SENNA TAB PO SCH (21:42)
[2018-08-14] MEDS: LORAZEPAM 0.5 MG TAB PO SCH (21:43)
[2018-08-15] MEDS: PANTOPRAZOLE (EC) 40 MG TAB PO SCH (06:16)
[2018-08-15 08:00] VITALS: BP 113/44; PULSE 54; RESP 21
[2018-08-15] MEDS: METOPROLOL (XL) 50 MG TAB PO SCH ×2 (08:41→21:00)
[2018-08-15] MEDS: DOCUSATE SODIUM 100 MG CAP PO SCH ×2 (08:42→21:01)
[2018-08-15] MEDS: MAGNESIUM OXIDE 400 MG TAB PO SCH (08:42)
[2018-08-15] MEDS: ESCITALOPRAM 10 MG TAB PO SCH (08:42)
[2018-08-15] MEDS: CARBIDOPA/LEVODOPA (25/100) TAB PO SCH ×4 (08:42→21:00)
[2018-08-15] MEDS: FUROSEMIDE 20 MG TAB PO SCH ×2 (08:42→21:01)
[2018-08-15] MEDS: APIXABAN 5 MG TABLET PO SCH ×2 (08:43→21:01)
[2018-08-15] MEDS: LUBIPROSTONE 24 MCG CAP PO SCH ×2 (08:43→21:00)
[2018-08-15] MEDS: FOLIC ACID 1 MG TAB PO SCH (08:43)
[2018-08-15] MEDS: NITROFURANTOIN (SR) 100 MG CAP PO SCH ×2 (08:43→21:00)
[2018-08-15] MEDS: CLOPIDOGREL 75 MG TAB PO SCH (08:43)
[2018-08-15] MEDS: PRAMIPEXOLE 0.25 MG TAB PO SCH ×2 (08:43→21:01)
[2018-08-15] MEDS: AMIODARONE 200 MG TAB PO SCH ×2 (08:43→21:00)
[2018-08-15] MEDS: NIFEdipine (XL) 30 MG TAB PO SCH ×2 (08:44→21:00)
--- NOTE | 2018-08-15 10:11 | PN ---
Date/Time of Note Date/Time of Note DATE: 08/15/18 TIME: 10:10 Subjective In good spirits Objective Vital Signs Date Temp Pulse Resp B/P (MAP) Pulse Ox O2 O2 Flow FiO2 Time Delivery Rate 08/15/18 98.1 54 21 113/44 99 Room Air 08:00 (67) 08/14/18 2.0 20:30 Exam pulm-cta abd-soft min ambulation 25 feet Results/Medications Medications Current Medications Docusate Sodium (Colace) 100 mg BID PO Last administered on 08/15/18 08:42; Admin Dose 100 MG; Start 08/09/18 at 21:00 Senna (Senokot) 1 tab HS PO Last administered on 08/14/18 21:42; Admin Dose 1 TAB; Start 08/09/18 at 21:00 Magnesium Hydroxide (Milk Of Mag) 30 ml BID PRN PO CONSTIPATION; Start 08/09/18 at 19:00 Lactulose (Enulose) 20 gm DAILY PRN PO CONSTIPATION; Start 08/09/18 at 19:00 Bisacodyl (Dulcolax Supp) 10 mg DAILY PRN [place] CONSTIPATION; Start 08/09/18 at 19:00 Miscellaneous Information (Pending Santyl Order For Wound Care) This patient mendoza... PRN PRN XX WOUND CARE; Start 08/09/18 at 19:00 Amiodarone HCl (Cordarone) 200 mg BID PO Last administered on 08/15/18 08:43; Admin Dose 200 MG; Start 08/09/18 at 21:00 Pantoprazole (Protonix Tab) 40 mg DAILY@06 PO Last administered on 08/15/18at 06:16; Admin Dose 40 MG; Start 08/10/18 at 06:00 Lorazepam (Ativan) 1 mg HS PO Last administered on 08/14/18 21:43; Admin Dose 1 MG; Start 08/09/18 at 21:00 Escitalopram Oxalate (Lexapro) 20 mg DAILY PO Last administered on 08/15/18 08:42; Admin Dose 20 MG; Start 08/10/18 at 09:00 Folic Acid (Folic Acid) 1 mg DAILY PO Last administered on 08/15/18 08:43; Admin Dose 1 MG; Start 08/10/18 at 09:00 Lubiprostone (Amitiza) 24 mcg BID PO Last administered on 08/15/18 08:43; Admin Dose 24 MCG; Start 08/09/18 at 21:00 Metoprolol Succinate (Toprol Xl) 50 mg BID PO Last administered on 08/15/18 08:41; Admin Dose 50 MG; Start 08/09/18 at 21:00 Pramipexole (Mirapex) 0.5 mg BID PO Last administered on 08/15/18 08:43; Admin Dose 0.5 MG; Start 08/09/18 at 21:00 Clopidogrel Bisulfate (plaVIX) 75 mg DAILY PO Last administered on 08/15/18 08:43; Admin Dose 75 MG; Start 08/10/18 at 09:00 Magnesium Oxide (Mag-Ox 400) 400 mg DAILY PO Last administered on 08/15/18 08:42; Admin Dose 400 MG; Start 08/10/18 at 09:00 Carbidopa/Levodopa (Sinemet (25/ 100)) 1 tab QID PO Last administered on 08/15/18 08:42; Admin Dose 1 TAB; Start 08/09/18 at 21:00 Acetaminophen (Tylenol Tab) 650 mg Q8 PRN PO MODERATE PAIN LEVEL 4-6 Last administered on 08/10/18 15:18; Admin Dose 650 MG; Start 08/09/18 at 19:30 Apixaban (Eliquis) 2.5 mg BID PO Last administered on 08/15/18 08:43; Admin Dose 2.5 MG; Start 08/11/18 at 09:00 Nifedipine (Procardia Xl) 30 mg BID PO Last administered on 08/15/18 08:44; Admin Dose 30 MG; Start 08/11/18 at 21:00 Tramadol HCl (Ultram) 50 mg Q4H PRN PO SEVERE PAIN LEVEL 7-10 Last administered on 08/14/18 17:26; Admin Dose 50 MG; Start 08/11/18 at 15:30 Nitrofurantoin Macrocrystals (Macrobid) 100 mg BID PO Last administered on 08/15/18 08:43; Admin Dose 100 MG; Start 08/12/18 at 21:00 Furosemide (Lasix) 20 mg BID PO Last administered on 08/15/18 08:42; Admin Dose 20 MG; Start 08/13/18 at 21:00 Lubiprostone (Amitiza) 8 mcg BID PRN PO constipation; Start 08/14/18 at 15:00 Assessment/Plan Additional Assessment/Plan Rehab- 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 Continue current rehab program Hypertension. Dysphagia-speech therapy History of atrial fibrillation. JAMES PYLE MD Aug 15, 2018 10:11
--- NOTE | 2018-08-15 12:24 | PN ---
Date/Time of Note Date/Time of Note DATE: 08/15/18 TIME: 12:22 Assessment/Plan VTE Prophylaxis Risk score (from Ns)>0 risk: 4 [place]CD applied (from [facility] [place] Yes Pharmacological prophylaxis: apixaban Lines/Catheters Urinary Cath still in place: No Assessment/Plan Hospital Course 1. 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 2. Hypertension. 3. Hyperlipidemia. 4. Parkinson disease. 5. Chronic atrial fibrillation. 6 UTI e.coli resistant to cipro Assessment/Plan -c/w Plavix, spoke to HD Natalie for prevention of ischemic stroke -c/w Eliquis per cardiology for A. fib -Continue with statin -bowel care - cw nifedipine/MTP/ Lasix/amiodarone -continue with Sinemet -Follow with neuro and cardiac recs -PT/OT Subjective 24 Hr Interval Summary Constitutional: no complaints, improved Exam/Review of Systems Exam Vitals Vital Signs Date Temp Pulse Resp B/P (MAP) Pulse Ox O2 O2 Flow FiO2 Time Delivery Rate 08/15/18 98.1 54 21 113/44 99 Room Air 08:00 (67) 08/14/18 2.0 20:30 Constitutional: alert, oriented Psych: no complaints Respiratory: clear to auscultation Cardiovascular: irregular rhythm (afib) Gastrointestinal: soft Genitourinary - Female: CVA tenderness; No nl adnexae, No nl external genitalia, No CMT, No uterus, No other Medications Medication Current Medications Docusate Sodium (Colace) 100 mg BID PO Last administered on 08/15/18at 08:42; Admin Dose 100 MG; Start 08/09/18 at 21:00 Senna (Senokot) 1 tab HS PO Last administered on 08/14/18at 21:42; Admin Dose 1 TAB; Start 08/09/18 at 21:00 Magnesium Hydroxide (Milk Of Mag) 30 ml BID PRN PO CONSTIPATION; Start 08/09/18 at 19:00 Lactulose (Enulose) 20 gm DAILY PRN PO CONSTIPATION; Start 08/09/18 at 19:00 Bisacodyl (Dulcolax Supp) 10 mg DAILY PRN [place] CONSTIPATION; Start 08/09/18 at 19:00 Miscellaneous Information (Pending [facility] Order For Wound Care) This patient mendoza... PRN PRN XX WOUND CARE; Start 08/09/18 at 19:00 Amiodarone HCl (Cordarone) 200 mg BID PO Last administered on 08/15/18 08:43; Admin Dose 200 MG; Start 08/09/18 at 21:00 Pantoprazole (Protonix Tab) 40 mg DAILY@06 PO Last administered on 08/15/18 06:16; Admin Dose 40 MG; Start 08/10/18 at 06:00 Lorazepam (Ativan) 1 mg HS PO Last administered on 08/14/18 21:43; Admin Dose 1 MG; Start 08/09/18 at 21:00 Escitalopram Oxalate (Lexapro) 20 mg DAILY PO Last administered on 08/15/18 08:42; Admin Dose 20 MG; Start 08/10/18 at 09:00 Folic Acid (Folic Acid) 1 mg DAILY PO Last administered on 08/15/18 08:43; Ad min Dose 1 MG; Start 08/10/18 at 09:00 Lubiprostone (Amitiza) 24 mcg BID PO Last administered on 08/15/18 08:43; Admin Dose 24 MCG; Start 08/09/18 at 21:00 Metoprolol Succinate (Toprol Xl) 50 mg BID PO Last administered on 08/15/18 08:41; Admin Dose 50 MG; Start 08/09/18 at 21:00 Pramipexole (Mirapex) 0.5 mg BID PO Last administered on 08/15/18 08:43; Admin Dose 0.5 MG; Start 08/09/18 at 21:00 Clopidogrel Bisulfate (plaVIX) 75 mg DAILY PO Last administered on 08/15/18 08:43; Admin Dose 75 MG; Start 08/10/18 at 09:00 Magnesium Oxide (Mag-Ox 400) 400 mg DAILY PO Last administered on 08/15/18 08:42; Admin Dose 400 MG; Start 08/10/18 at 09:00 Carbidopa/Levodopa (Sinemet (25/ 100)) 1 tab QID PO Last administered on 08/15/18 12:18; Admin Dose 1 TAB; Start 08/09/18 at 21:00 Acetaminophen (Tylenol Tab) 650 mg Q8 PRN PO MODERATE PAIN LEVEL 4-6 Last administered on 08/10/18 15:18; Admin Dose 650 MG; Start 08/09/18 at 19:30 Apixaban (Eliquis) 2.5 mg BID PO Last administered on 08/15/18 08:43; Admin Dose 2.5 MG; Start 08/11/18 at 09:00 Nifedipine (Procardia Xl) 30 mg BID PO Last administered on 08/15/18 08:44; Admin Dose 30 MG; Start 08/11/18 at 21:00 Tramadol HCl (Ultram) 50 mg Q4H PRN PO SEVERE PAIN LEVEL 7-10 Last administered on 08/14/18 17:26; Admin Dose 50 MG; Start 08/11/18 at 15:30 Nitrofurantoin Macrocrystals (Macrobid) 100 mg BID PO Last administered on 08/15/18 08:43; Admin Dose 100 MG; Start 08/12/18 at 21:00 Furosemide (Lasix) 20 mg BID PO Last administered on 08/15/18 08:42; Admin Dose 20 MG; Start 08/13/18 at 21:00 Lubiprostone (Amitiza) 8 mcg BID PRN PO constipation; Start 08/14/18 at 15:00 JUSTIN NAVARRO Aug 15, 2018 12:24
[2018-08-15 14:30] VITALS: BP 110/60; PULSE 52; RESP 20
[2018-08-15 15:09] VITALS: BP 110/60; PULSE 52; RESP 20
--- NOTE | 2018-08-15 15:47 | CONS ---
Consult Date/Type/Reason Admit Date/Time Aug 09, 2018 at 18:10 Initial Consult Date Requesting Provider: CORI JON MD Date/Time of Note DATE: 08/15/18 TIME: 15:45 Subjective NO acute events - pt doing well - no evidence of bleeding - compliant with rehab. ROS: No fever, no chills, no nausea, no vomiting, no diarrhea/constipation No recent weight changes No chest pain, no PND, no orthopnea - mild SOB No dizziness, blurred vision No thirst, no heat or cold intolerance Objective Vitals Vital Signs Date Temp Pulse Resp B/P (MAP) Pulse Ox O2 O2 Flow FiO2 Time Delivery Rate 08/15/18 98.0 52 20 110/60 97 Room Air 14:30 (77) 08/14/18 2.0 20:30 Exam General: WN/WD/NAD, AOx 2-3 Comfortable HEENT: Unicetric/atraumatic/EOMI (follow commands) NECK: JVD elevated, no thyromegaly Lymph: no lymphadenopathy HEART: regular with no S3, II/ systolic murmur at apex LUNGS: Coarse sounds ABD: soft, NT, ND, +BS : Intact Neuro: non focal SKIN: chronic changes EXT: trace edema Results/Medications Home Meds Active Scripts Clonidine Hcl* (Clonidine Hcl*) 0.2 Mg Tablet, 0.2 MG PO Q8 PRN for ELEVATED SYSTOLIC BP, #30 TAB Prov:YOLI HARRISON 07/08/15 Reported Medications Lubiprostone* (Amitiza*) 24 Mcg Capsule, 24 MCG PO BID, #60 CAP 07/06/15 Carbidopa-Levodopa* (Sinemet*) 25-100 Mg Tab, 1 TAB PO QID, TAB 07/06/15 Loperamide Hcl* (Loperamide Hcl*) 2 Mg Cap, 2 MG PO TID, CAP 07/06/15 Valsartan* (Diovan*) 160 Mg Tablet, 160 MG PO DAILY, TAB 07/06/15 Dexlansoprazole (Dexilant) 60 Mg Cap., 60 MG PO DAILY, #30 CAP 07/06/15 Metoprolol Succinate* (Toprol XL*) 50 Mg Tab.er.24h, 50 MG PO DAILY, #30 TAB 07/06/15 Citalopram Hydrobromide* (Celexa*) 20 Mg Tablet, 20 MG PO DAILY, #30 TAB 07/06/15 Aspirin (Low Dose Aspirin) 81 Mg Tablet.dr, 81 MG PO DAILY, #30 TAB 07/06/15 Digoxin* (Digoxin*) 0.25 Mg Tab, 0.25 MG PO DAILY, #30 TAB 07/06/15 Clopidogrel Bisulfate (Clopidogrel) 75 Mg Tablet, 75 MG PO DAILY, #30 TAB 07/06/15 Lorazepam* (Lorazepam*) 1 Mg Tablet, 1 MG PO BID PRN for ANXIETY, #30 TAB 07/06/15 Triamterene-HCTZ* (Triamterene-HCTZ*) 37.5 - 25 Mg Capsule, 1 CAP PO DAILY, CAP 07/06/15 Fluticasone Propionate (Flonase Allergy Relief) 9.9 Ml [place].susp, 1 SPRAY NASAL BID, #1 BOTTLE TO EACH NOSTRIL 07/06/15 Magnesium Oxide* (Mag-Oxide*) 400 Mg Tablet, 400 MG PO BID, TAB 07/06/15 Folic Acid* (Folic Acid*) 1 Mg Tablet, 1 MG PO DAILY, TAB 07/06/15 Medications Current Medications Docusate Sodium (Colace) 100 mg BID PO Last administered on 08/15/18at 08:42; Admin Dose 100 MG; Start 08/09/18 at 21:00 Senna (Senokot) 1 tab HS PO Last administered on 08/14/18at 21:42; Admin Dose 1 TAB; Start 08/09/18 at 21:00 Magnesium Hydroxide (Milk Of Mag) 30 ml BID PRN PO CONSTIPATION; Start 08/09/18 at 19:00 Lactulose (Enulose) 20 gm DAILY PRN PO CONSTIPATION; Start 08/09/18 at 19:00 Bisacodyl (Dulcolax Supp) 10 mg DAILY PRN [place] CONSTIPATION; Start 08/09/18 at 19:00 [facility] This patient mendoza... PRN PRN XX WOUND CARE; Start 08/09/18 at 19:00 Amiodarone HCl (Cordarone) 200 mg BID PO Last administered on 08/15/18at 08:43; Admin Dose 200 MG; Start 08/09/18 at 21:00 Pantoprazole (Protonix Tab) 40 mg DAILY@06 PO Last administered on 08/15/18 06:16; Admin Dose 40 MG; Start 08/10/18 at 06:00 Lorazepam (Ativan) 1 mg HS PO Last administered on 08/14/18 21:43; Admin Dose 1 MG; Start 08/09/18 at 21:00 Escitalopram Oxalate (Lexapro) 20 mg DAILY PO Last administered on 08/15/18 08:42; Admin Dose 20 MG; Start 08/10/18 at 09:00 Folic Acid (Folic Acid) 1 mg DAILY PO Last administered on 08/15/18 08:43; Admin Dose 1 MG; Start 08/10/18 at 09:00 Lubiprostone (Amitiza) 24 mcg BID PO Last administered on 08/15/18 08:43; Admin Dose 24 MCG; Start 08/09/18 at 21:00 Metoprolol Succinate (Toprol Xl) 50 mg BID PO Last administered on 08/15/18 08:41; Admin Dose 50 MG; Start 08/09/18 at 21:00 Pramipexole (Mirapex) 0.5 mg BID PO Last administered on 08/15/18 08:43; Admin Dose 0.5 MG; Start 08/09/18 at 21:00 Magnesium Oxide (Mag-Ox 400) 400 mg DAILY PO Last administered on 08/15/18 08:42; Admin Dose 400 MG; Start 08/10/18 at 09:00 Carbidopa/Levodopa (Sinemet (25/ 100)) 1 tab QID PO Last administered on 08/15/18 12:18; Admin Dose 1 TAB; Start 08/09/18 at 21:00 Acetaminophen (Tylenol Tab) 650 mg Q8 PRN PO MODERATE PAIN LEVEL 4-6 Last administered on 08/10/18 15:18; Admin Dose 650 MG; Start 08/09/18 at 19:30 Apixaban (Eliquis) 2.5 mg BID PO Last administered on 08/15/18 08:43; Admin Dose 2.5 MG; Start 08/11/18 at 09:00 Nifedipine (Procardia Xl) 30 mg BID PO Last administered on 08/15/18 08:44; Admin Dose 30 MG; Start 08/11/18 at 21:00 Tramadol HCl (Ultram) 50 mg Q4H PRN PO SEVERE PAIN LEVEL 7-10 Last administered on 08/14/18at 17:26; Admin Dose 50 MG; Start 08/11/18 at 15:30 Nitrofurantoin Macrocrystals (Macrobid) 100 mg BID PO Last administered on 08/15/18at 08:43; Admin Dose 100 MG; Start 08/12/18 at 21:00 Furosemide (Lasix) 20 mg BID PO Last administered on 08/15/18at 08:42; Admin Dose 20 MG; Start 08/13/18 at 21:00 Lubiprostone (Amitiza) 8 mcg BID PRN PO constipation; Start 08/14/18 at 15:00 Clopidogrel Bisulfate (plaVIX) 75 mg DAILY PO ; Start 08/16/18 at 09:00 Assessment/Plan Hospital Course (Demo Recall) 1. Paroxysmal atrial fibrillation on amiodarone - converted to Eliquis 2.5 mg po bid. 2. Hypertension, mildly elevated - con't to add Rx to goal s/p CVA. On Plavix. 3. Dyslipidemia, not on statin at this time. 4. Status post acute cerebrovascular accident, in rehab now - compliant with rehab. Con;t rehab - doing well. 5. Anemia - H/H stable - no bleeding now. Con't to follow. 6. Parkinson. 7. Psychiatric disorder- treated. NO agitation now. FLACO KITCHEN MD Aug 15, 2018 15:47
[2018-08-15 20:00] VITALS: BP 113/52; PULSE 61; RESP 19
[2018-08-15] MEDS: LORAZEPAM 0.5 MG TAB PO SCH (21:02)
[2018-08-15] MEDS: SENNA TAB PO SCH (21:02)
--- NOTE | 2018-08-15 21:17 | HKNOTE ---
DATE OF SERVICE: 08/15/2018 HISTORY OF PRESENT ILLNESS: The patient is an 82-year-old status post stroke, parkinsonism, gait dif ficulty, lack of balance, hypertension, chronic atrial fibrillation, urinary tract infection. The pa lazara has acute rehab for continuation of improving her daily activity and gait and balance. PHYSICAL EXAMINATION: GENERAL: Today, the patient is alert, awake, oriented, following simple commands. CRANIAL NERVES: Cranial nerve II: Pupils equal on both sides, reactive to light. Cranial nerves II I, IV and : Extraocular muscles intact. Cranial nerve V: Equal sensation to face. Cranial nerve VII: Decreased nasolabial fold on the right side. Sensation decreased on the right side for light touch and temperature. COORDINATION: Sbjcem-ho-xlgr test intact. HEART: Regular rate and rhythm. LUNGS: Equal breath sounds. ABDOMEN: Soft, relaxed, nondistended, no tenderness. ASSESSMENT AND PLAN: 1. Status post lacunar infarction with right-sided weakness, which the patient already on Eliquis. 2. The patient has paroxysmal atrial fibrillation in which the patient under Cordarone and metoprolo l. 3. History of hypertension. Keep the blood pressure level 140/90. 4. Gait difficulty. Acute rehab under occupational therapy and speech therapy. 5. 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 6. Gait difficulty. Follow up the patient with physical therapist. 7. Decreased daily activity in which the patient under occupational therapy. Again, thank you for asking me to see the patient with you. Dictated By: COLIN LOW MD NA/NTS Conf#: [id number] DID#: [id number] CC: BETTY CORDOBA MD; JAMES PYLE MD; CORI JON;*EndCC*
[2018-08-16 02:00] VITALS: BP 114/57; PULSE 57; RESP 18
[2018-08-16 06:00] VITALS: BP 121/53; PULSE 56; RESP 17
[2018-08-16] MEDS: PANTOPRAZOLE (EC) 40 MG TAB PO SCH (06:17)
[2018-08-16 08:00] VITALS: BP 127/59; PULSE 78; RESP 18
[2018-08-16] MEDS: PRAMIPEXOLE 0.25 MG TAB PO SCH ×2 (08:41→20:50)
[2018-08-16] MEDS: NITROFURANTOIN (SR) 100 MG CAP PO SCH ×2 (08:41→20:51)
[2018-08-16] MEDS: ESCITALOPRAM 10 MG TAB PO SCH (08:41)
[2018-08-16] MEDS: MAGNESIUM OXIDE 400 MG TAB PO SCH (08:41)
[2018-08-16] MEDS: DOCUSATE SODIUM 100 MG CAP PO SCH ×2 (08:42→20:51)
[2018-08-16] MEDS: APIXABAN 5 MG TABLET PO SCH ×2 (08:42→20:54)
[2018-08-16] MEDS: FUROSEMIDE 20 MG TAB PO SCH ×2 (08:42→20:50)
[2018-08-16] MEDS: METOPROLOL (XL) 50 MG TAB PO SCH ×2 (08:42→21:00)
[2018-08-16] MEDS: CARBIDOPA/LEVODOPA (25/100) TAB PO SCH ×4 (08:43→20:52)
[2018-08-16] MEDS: AMIODARONE 200 MG TAB PO SCH ×2 (08:43→20:51)
[2018-08-16] MEDS: LUBIPROSTONE 24 MCG CAP PO SCH ×2 (08:54→20:51)
[2018-08-16] MEDS: FOLIC ACID 1 MG TAB PO SCH (08:54)
[2018-08-16] MEDS: NIFEdipine (XL) 30 MG TAB PO SCH ×2 (08:54→20:54)
[2018-08-16] MEDS: CLOPIDOGREL 75 MG TAB PO SCH (08:54)
[2018-08-16] MEDS: traMADol 50 MG TAB PO PRN ×3 (08:55→17:35)
--- NOTE | 2018-08-16 10:09 | PN ---
JESSE NAVARROA 08/16/18 1009: Date/Time of Note Date/Time of Note DATE: 08/16/18 TIME: 10:08 Assessment/Plan VTE Prophylaxis Risk score (from [facility] [place]0 risk: 4 SCD applied (from [facility] [place] Yes Pharmacological prophylaxis: apixaban Lines/Catheters Urinary Cath still in place: No Assessment/Plan Hospital Course 1. 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 2. Hypertension. 3. Hyperlipidemia. 4. Parkinson disease. 5. Chronic atrial fibrillation. 6 UTI e.coli resistant to cipro Assessment/Plan -c/w Plavix Eliquis per cardiology for A. fib -Continue with statin -bowel care - cw nifedipine/MTP/ Lasix/amiodarone -continue with Sinemet -Follow with neuro and cardiac recs -PT/OT Result Diagram: 08/16/18 0612 08/16/18 0612 Results 24hrs Laboratory Tests Test 08/16/18 06:12 White Blood Count 4.8 Red Blood Count 4.38 Hemoglobin 10.8 L Hematocrit 35.4 L Mean Corpuscular Volume 80.8 L Mean Corpuscular Hemoglobin 24.7 L Mean Corpuscular Hemoglobin Concent 30.5 L Red Cell Distribution Width 14.8 H Platelet Count 394 Mean Platelet Volume 9.8 Immature Granulocytes % 0.200 Neutrophils % 35.3 L Lymphocytes % 53.4 H Monocytes % 8.6 Eosinophils % 1.9 Basophils % 0.6 Nucleated Red Blood Cells % 0.0 Immature Granulocytes # 0.010 Neutrophils # 1.7 Lymphocytes # 2.5 Monocytes # 0.4 Eosinophils # 0.1 Basophils # 0.0 Nucleated Red Blood Cells # 0.0 Sodium Level 136 Potassium Level 4.2 Chloride Level 96 L Carbon Dioxide Level 28 Anion Gap 12 Blood Urea Nitrogen 20 Creatinine 0.83 Est Glomerular Filtrat Rate mL/min Glucose Level 99 Calcium Level 9.4 Subjective 24 Hr Interval Summary Respiratory: no complaints Exam/Review of Systems Exam Vitals Vital Signs Date Temp Pulse Resp B/P (MAP) Pulse Ox O2 O2 Flow FiO2 Time Delivery Rate 08/16/18 97.8 78 18 127/59 96 Room Air 08:00 (81) 08/14/18 2.0 20:30 Intake and Output 08/15/18 08/15/18 08/16/18 1515:00 23:00 07:00 IntakeIntake Total 200 ml 50 ml OutputOutput Total 350 ml BalanceBalance 200 ml -300 ml Constitutional: alert, oriented Neck: supple Respiratory: clear to auscultation Cardiovascular: regular rate and rhythm Gastrointestinal: soft Results Result Diagram: 08/16/18 0612 08/16/18 0612 Results 24hrs Laboratory Tests Test 08/16/18 06:12 White Blood Count 4.8 Red Blood Count 4.38 Hemoglobin 10.8 L Hematocrit 35.4 L Mean Corpuscular Volume 80.8 L Mean Corpuscular Hemoglobin 24.7 L Mean Corpuscular Hemoglobin Concent 30.5 L Red Cell Distribution Width 14.8 H Platelet Count 394 Mean Platelet Volume 9.8 Immature Granulocytes % 0.200 Neutrophils % 35.3 L Lymphocytes % 53.4 H Monocytes % 8.6 Eosinophils % 1.9 Basophils % 0.6 Nucleated Red Blood Cells % 0.0 Immature Granulocytes # 0.010 Neutrophils # 1.7 Lymphocytes # 2.5 Monocytes # 0.4 Eosinophils # 0.1 Basophils # 0.0 Nucleated Red Blood Cells # 0.0 Sodium Level 136 Potassium Level 4.2 Chloride Level 96 L Carbon Dioxide Level 28 Anion Gap 12 Blood Urea Nitrogen 20 Creatinine 0.83 Est Glomerular Filtrat Rate mL/min Glucose Level 99 Calcium Level 9.4 Medications Medication Current Medications Docusate Sodium (Colace) 100 mg BID PO Last administered on 08/16/18at 08:42; Admin Dose 100 MG; Start 08/09/18 at 21:00 Senna (Senokot) 1 tab HS PO Last administered on 08/15/18at 21:02; Admin Dose 1 TAB; Start 08/09/18 at 21:00 Magnesium Hydroxide (Milk Of Mag) 30 ml BID PRN PO CONSTIPATION; Start 08/09/18 at 19:00 Lactulose (Enulose) 20 gm DAILY PRN PO CONSTIPATION; Start 08/09/18 at 19:00 Bisacodyl (Dulcolax Supp) 10 mg DAILY PRN [place] CONSTIPATION; Start 08/09/18 at 19:00 Miscellaneous Information (Pending [facility] Order For Wound Care) This patient mendoza... PRN PRN XX WOUND CARE; Start 08/09/18 at 19:00 Amiodarone HCl (Cordarone) 200 mg BID PO Last administered on 08/16/18 08:43; Admin Dose 200 MG; Start 08/09/18 at 21:00 Pantoprazole (Protonix Tab) 40 mg DAILY@06 PO Last administered on 08/16/18 06:17; Admin Dose 40 MG; Start 08/10/18 at 06:00 Lorazepam (Ativan) 1 mg HS PO Last administered on 08/15/18 21:02; Admin Dose 1 MG; Start 08/09/18 at 21:00 Escitalopram Oxalate (Lexapro) 20 mg DAILY PO Last administered on 08/16/18 08:41; Admin Dose 20 MG; Start 08/10/18 at 09:00 Folic Acid (Folic Acid) 1 mg DAILY PO Last administered on 08/16/18 08:54; Admin Dose 1 MG; Start 08/10/18 at 09:00 Lubiprostone (Amitiza) 24 mcg BID PO Last administered on 08/16/18 08:54; Admin Dose 24 MCG; Start 08/09/18 at 21:00 Metoprolol Succinate (Toprol Xl) 50 mg BID PO Last administered on 08/16/18 08:42; Admin Dose 50 MG; Start 08/09/18 at 21:00 Pramipexole (Mirapex) 0.5 mg BID PO Last administered on 08/16/18 08:41; Admin Dose 0.5 MG; Start 08/09/18 at 21:00 Magnesium Oxide (Mag-Ox 400) 400 mg DAILY PO Last administered on 08/16/18 08:41; Admin Dose 400 MG; Start 08/10/18 at 09:00 Carbidopa/Levodopa (Sinemet (25/ 100)) 1 tab QID PO Last administered on 08:43; Admin Dose 1 TAB; Start 08/09/18 at 21:00 Acetaminophen (Tylenol Tab) 650 mg Q8 PRN PO MODERATE PAIN LEVEL 4-6 Last administered on 08/10/18 15:18; Admin Dose 650 MG; Start 08/09/18 at 19:30 Apixaban (Eliquis) 2.5 mg BID PO Last administered on 08/16/18 08:42; Admin Dose 2.5 MG; Start 08/11/18 at 09:00 Nifedipine (Procardia Xl) 30 mg BID PO Last administered on 08/16/18 08:54; Ad min Dose 30 MG; Start 08/11/18 at 21:00 Tramadol HCl (Ultram) 50 mg Q4H PRN PO SEVERE PAIN LEVEL 7-10 Last administered on 08/16/18 08:55; Admin Dose 50 MG; Start 08/11/18 at 15:30 Nitrofurantoin Macrocrystals (Macrobid) 100 mg BID PO Last administered on 08/16/18 08:41; Admin Dose 100 MG; Start 08/12/18 at 21:00 Furosemide (Lasix) 20 mg BID PO Last administered on 08/16/18 08:42; Admin Dose 20 MG; Start 08/13/18 at 21:00 Lubiprostone (Amitiza) 8 mcg BID PRN PO constipation; Start 08/14/18 at 15:00 Clopidogrel Bisulfate (plaVIX) 75 mg DAILY PO Last administered on 08/16/18at 08:54; Admin Dose 75 MG; Start 08/16/18 at 09:00 CORI JON MD 08/16/18 1454: Assessment/Plan Assessment/Plan Assessment/Plan seen and ecxamiend Result Diagram: 08/16/18 0612 08/16/18 0612 JUSTIN NAVARRO Aug 16, 2018 10:09 CORI JON MD Aug 16, 2018 14:54
--- NOTE | 2018-08-16 11:56 | CONS ---
Consult Date/Type/Reason Admit Date/Time Aug 09, 2018 at 18:10 Initial Consult Date Requesting Provider: CORI JON MD Date/Time of Note DATE: 08/16/18 TIME: 11:55 Subjective No acute events - pt comfortable - no CP now - will monitor clinically. ROS: No fever, no chills, no nausea, no vomiting, no diarrhea/constipation No recent weight changes No chest pain, no PND, no orthopnea - mild SOB No dizziness, blurred vision No thirst, no heat or cold intolerance Objective Vitals Vital Signs Date Temp Pulse Resp B/P (MAP) Pulse Ox O2 O2 Flow FiO2 Time Delivery Rate 08/16/18 2.0 08:00 08/16/18 97.8 78 18 127/59 96 Room Air 08:00 (81) Intake and Output 08/15/18 08/15/18 08/16/18 1414:59 22:59 06:59 IntakeIntake Total 200 ml 50 ml OutputOutput Total 350 ml BalanceBalance 200 ml -300 ml Exam General: WN/WD/NAD, AOx 3 HEENT: Unicetric/atraumatic/EOMI (follows commands) NECK: JVD elevated, no thyromegaly Lymph: no lymphadenopathy HEART: regular with no S3, II/ systolic murmur at apex LUNGS: Coarse sounds ABD: soft, NT, ND, +BS : Intact Neuro: non focal, post CVA SKIN: chronic changes EXT: trace edema Results/Medications Result Diagram: 08/16/18 0612 08/16/18 0612 Results 24 hrs Laboratory Tests Test 08/16/18 06:12 White Blood Count 4.8 Red Blood Count 4.38 Hemoglobin 10.8 L Hematocrit 35.4 L Mean Corpuscular Volume 80.8 L Mean Corpuscular Hemoglobin 24.7 L Mean Corpuscular Hemoglobin Concent 30.5 L Red Cell Distribution Width 14.8 H Platelet Count 394 Mean Platelet Volume 9.8 Immature Granulocytes % 0.200 Neutrophils % 35.3 L Lymphocytes % 53.4 H Monocytes % 8.6 Eosinophils % 1.9 Basophils % 0.6 Nucleated Red Blood Cells % 0.0 Immature Granulocytes # 0.010 Neutrophils # 1.7 Lymphocytes # 2.5 Monocytes # 0.4 Eosinophils # 0.1 Basophils # 0.0 Nucleated Red Blood Cells # 0.0 Sodium Level 136 Potassium Level 4.2 Chloride Level 96 L Carbon Dioxide Level 28 Anion Gap 12 Blood Urea Nitrogen 20 Creatinine 0.83 Est Glomerular Filtrat Rate mL/min Glucose Level 99 Calcium Level 9.4 Home Meds Active Scripts Clonidine Hcl* (Clonidine Hcl*) 0.2 Mg Tablet, 0.2 MG PO Q8 PRN for ELEVATED SYSTOLIC BP, #30 TAB Prov:YOLI HARRISON 07/08/15 Reported Medications Lubiprostone* (Amitiza*) 24 Mcg Capsule, 24 MCG PO BID, #60 CAP 07/06/15 Carbidopa-Levodopa* (Sinemet*) 25-100 Mg Tab, 1 TAB PO QID, TAB 07/06/15 Loperamide Hcl* (Loperamide Hcl*) 2 Mg Cap, 2 MG PO TID, CAP 07/06/15 Valsartan* (Diovan*) 160 Mg Tablet, 160 MG PO DAILY, TAB 07/06/15 Dexlansoprazole (Dexilant) 60 Mg Cap., 60 MG PO DAILY, #30 CAP 07/06/15 Metoprolol Succinate* (Toprol XL*) 50 Mg Tab.er.24h, 50 MG PO DAILY, #30 TAB 07/06/15 Citalopram Hydrobromide* (Celexa*) 20 Mg Tablet, 20 MG PO DAILY, #30 TAB 07/06/15 Aspirin (Low Dose Aspirin) 81 Mg Tablet.dr, 81 MG PO DAILY, #30 TAB 07/06/15 Digoxin* (Digoxin*) 0.25 Mg Tab, 0.25 MG PO DAILY, #30 TAB 07/06/15 Clopidogrel Bisulfate (Clopidogrel) 75 Mg Tablet, 75 MG PO DAILY, #30 TAB 07/06/15 Lorazepam* (Lorazepam*) 1 Mg Tablet, 1 MG PO BID PRN for ANXIETY, #30 TAB 07/06/15 Triamterene-HCTZ* (Triamterene-HCTZ*) 37.5 - 25 Mg Capsule, 1 CAP PO DAILY, CAP 07/06/15 Fluticasone Propionate (Flonase Allergy Relief) 9.9 Ml Bonnyman.susp, 1 SPRAY NASAL BID, #1 BOTTLE TO EACH NOSTRIL 07/06/15 Magnesium Oxide* (Mag-Oxide*) 400 Mg Tablet, 400 MG PO BID, TAB 07/06/15 Folic Acid* (Folic Acid*) 1 Mg Tablet, 1 MG PO DAILY, TAB 07/06/15 Medications Current Medications Docusate Sodium (Colace) 100 mg BID PO Last administered on 08/16/18 08:42; Admin Dose 100 MG; Start 08/09/18 at 21:00 Senna (Senokot) 1 tab HS PO Last administered on 08/15/18 21:02; Admin Dose 1 TAB; Start 08/09/18 at 21:00 Magnesium Hydroxide (Milk Of Mag) 30 ml BID PRN PO CONSTIPATION; Start 08/09/18 at 19:00 Lactulose (Enulose) 20 gm DAILY PRN PO CONSTIPATION; Start 08/09/18 at 19:00 Bisacodyl (Dulcolax Supp) 10 mg DAILY PRN [place] CONSTIPATION; Start 08/09/18 at 19:00 [facility] This patient mendoza... PRN PRN XX WOUND CARE; Start 08/09/18 at 19:00 Amiodarone HCl (Cordarone) 200 mg BID PO Last administered on 08/16/18 08:43; Admin Dose 200 MG; Start 08/09/18 at 21:00 Pantoprazole (Protonix Tab) 40 mg DAILY@06 PO Last administered on 08/16/18 06:17; Admin Dose 40 MG; Start 08/10/18 at 06:00 Lorazepam (Ativan) 1 mg HS PO Last administered on 08/15/18 21:02; Admin Dose 1 MG; Start 08/09/18 at 21:00 Escitalopram Oxalate (Lexapro) 20 mg DAILY PO Last administered on 08/16/18 08:41; Admin Dose 20 MG; Start 08/10/18 at 09:00 Folic Acid (Folic Acid) 1 mg DAILY PO Last administered on 08/16/18 08:54; Admin Dose 1 MG; Start 08/10/18 at 09:00 Lubiprostone (Amitiza) 24 mcg BID PO Last administered on 08/16/18 08:54; Admin Dose 24 MCG; Start 08/09/18 at 21:00 Metoprolol Succinate (Toprol Xl) 50 mg BID PO Last administered on 08/16/18 08:42; Admin Dose 50 MG; Start 08/09/18 at 21:00 Pramipexole (Mirapex) 0.5 mg BID PO Last administered on 08/16/18 08:41; Admin Dose 0.5 MG; Start 08/09/18 at 21:00 Magnesium Oxide (Mag-Ox 400) 400 mg DAILY PO Last administered on 08/16/18 08:41; Admin Dose 400 MG; Start 08/10/18 at 09:00 Carbidopa/Levodopa (Sinemet (25/ 100)) 1 tab QID PO Last administered on 08/16/18 08:43; Admin Dose 1 TAB; Start 08/09/18 at 21:00 Acetaminophen (Tylenol Tab) 650 mg Q8 PRN PO MODERATE PAIN LEVEL 4-6 Last administered on 08/10/18 15:18; Admin Dose 650 MG; Start 08/09/18 at 19:30 Apixaban (Eliquis) 2.5 mg BID PO Last administered on 08/16/18 08:42; Admin Dose 2.5 MG; Start 08/11/18 at 09:00 Nifedipine (Procardia Xl) 30 mg BID PO Last administered on 08/16/18 08:54; Admin Dose 30 MG; Start 08/11/18 at 21:00 Tramadol HCl (Ultram) 50 mg Q4H PRN PO SEVERE PAIN LEVEL 7-10 Last administered on 08/16/18 08:55; Admin Dose 50 MG; Start 08/11/18 at 15:30 Nitrofurantoin Macrocrystals (Macrobid) 100 mg BID PO Last administered on 08/16/18 08:41; Admin Dose 100 MG; Start 08/12/18 at 21:00 Furosemide (Lasix) 20 mg BID PO Last administered on 08/16/18 08:42; Admin Dose 20 MG; Start 08/13/18 at 21:00 Lubiprostone (Amitiza) 8 mcg BID PRN PO constipation; Start 08/14/18 at 15:00 Clopidogrel Bisulfate (plaVIX) 75 mg DAILY PO Last administered on 08/16/18 08:54; Admin Dose 75 MG; Start 08/16/18 at 09:00 Assessment/Plan Hospital Course (Demo Recall) 1. Paroxysmal atrial fibrillation on amiodarone - converted to Eliquis 2.5 mg po bid- rate controlled now. 2. Hypertension, mildly elevated - con't to add Rx to goal s/p CVA. On Plavix. Treated. 3. Dyslipidemia, not on statin at this time. 4. Status post acute cerebrovascular accident, in rehab now - compliant with rehab. Con;t rehab - doing well. Con't rehab. 5. Anemia - H/H stable - no bleeding now. Con't to follow. 6. Parkinson. 7. Psychiatric disorder- treated. NO agitation now. FLACO KITCHEN MD Aug 16, 2018 11:56
--- NOTE | 2018-08-16 16:02 | HKNOTE ---
DATE OF SERVICE: HISTORY OF PRESENT ILLNESS: The patient is an 82-year-old status post acute stroke in which the nisha ent right-sided weakness and decreased balance superimposed by parkinsonism, in which the patient has rigidity and shuffling gait and difficulty with ambulation in which the patient went for acute rehab ilitation. The patient has a history of atrial fibrillation, paroxysmal atrial fibrillation, hyperte nsion, urinary tract infection. MEDICATIONS: Include: 1. Eliquis 2.5 mg twice a day. 2. Lexapro 20 mg once a day. 3. Ultram 50 mg once a day. 4. Nifedipine 30 mg twice a day. 5. Microbid 100 mg twice a day. 6. Lasix 20 mg twice a day. 7. Amitiza 8 mcg once a day. 8. Protonix 40 mg once a day. 9. Colace 100 mg once a day. 10. Cordarone 200 mg twice a day. 11. Ativan 1 mg once a day. 12. Toprol 50 mg twice a day. 13. Mirapex 0.5 mg twice a day. 14. Milk of magnesium once a day as needed. 15. Dulcolax 10 mg once a day. PHYSICAL EXAMINATION: GENERAL: The patient is alert, awake, oriented, follows simple commands. CRANIAL NERVES: Cranial nerves II: Pupils equal on both sides, reactive to light. Cranial nerves I II, IV and : Extraocular muscles are intact without nystagmus. Cranial nerve V: Equal sensation to face. Cranial nerve VII: Symmetrical face. Cranial nerve VIII: Decreased hearing bilaterally. Cranial nerve IX and X: Elevates palate. Cranial nerve XI: Elevates shoulder 5/5. Cranial nerve XII: With straight tongue. MOTOR: Right side 4+/5. 1. SENSATION: Decreased for glove and sock area for light touch and temperature. COORDINATION: Aejkfy-yg-[id number] test intact. HEART: Regular rate and rhythm. LUNGS: Equal breath sounds. ABDOMEN: Soft, relaxed, nondistended, no tenderness. ASSESSMENT AND PLAN: 1. The patient is status post lacunar infarction with right-sided weakness. 2. History of paroxysmal atrial fibrillation with the patient under Eliquis for stroke prophylaxis a s well as metoprolol and Cordarone. 3. History of hypertension. Keep the blood pressure at the level of 140/90. 4. Gait difficulty in which the patient is followed by physical therapy. 5. Underlying parkinsonism, in which the patient Sinemet 100/25 mg 3 times a day. 6. We will keep the patient under deep venous thrombosis prophylaxis and decubitus ulcer prophylaxis . Again, thank you for asking me to see the patient with you. Dictated By: COLIN LOW MD NA/NTS Conf#: [id number] DID#: [id number] CC: JAMES PYLE MD;*EndCC*
[2018-08-16 20:00] VITALS: BP 133/55; PULSE 57; RESP 17
[2018-08-16] MEDS: SENNA TAB PO SCH (20:50)
[2018-08-16] MEDS: LORAZEPAM 0.5 MG TAB PO SCH (20:50)
[2018-08-17 02:00] VITALS: BP 136/66; PULSE 58; RESP 17
[2018-08-17 06:00] VITALS: BP 140/53; PULSE 55; RESP 18
[2018-08-17] MEDS: PANTOPRAZOLE (EC) 40 MG TAB PO SCH (06:15)
[2018-08-17 08:00] VITALS: BP 132/57; PULSE 59; RESP 19
[2018-08-17] MEDS: FOLIC ACID 1 MG TAB PO SCH (08:44)
[2018-08-17] MEDS: DOCUSATE SODIUM 100 MG CAP PO SCH ×2 (08:44→21:00)
[2018-08-17] MEDS: LUBIPROSTONE 24 MCG CAP PO SCH ×2 (08:44→21:00)
[2018-08-17] MEDS: MAGNESIUM OXIDE 400 MG TAB PO SCH (08:44)
[2018-08-17] MEDS: ESCITALOPRAM 10 MG TAB PO SCH (08:44)
[2018-08-17] MEDS: NITROFURANTOIN (SR) 100 MG CAP PO SCH ×2 (08:44→21:26)
[2018-08-17] MEDS: METOPROLOL (XL) 50 MG TAB PO SCH ×2 (08:45→21:00)
[2018-08-17] MEDS: FUROSEMIDE 20 MG TAB PO SCH ×2 (08:45→21:00)
[2018-08-17] MEDS: CARBIDOPA/LEVODOPA (25/100) TAB PO SCH ×4 (08:45→21:26)
[2018-08-17] MEDS: CLOPIDOGREL 75 MG TAB PO SCH (08:45)
[2018-08-17] MEDS: NIFEdipine (XL) 30 MG TAB PO SCH ×2 (08:45→21:00)
[2018-08-17] MEDS: PRAMIPEXOLE 0.25 MG TAB PO SCH ×2 (08:45→21:26)
[2018-08-17] MEDS: AMIODARONE 200 MG TAB PO SCH ×2 (08:46→21:00)
[2018-08-17] MEDS: APIXABAN 5 MG TABLET PO SCH ×2 (08:46→21:26)
--- NOTE | 2018-08-17 13:26 | CONS ---
Assessment/Plan Assessment/Plan Hospital Course (Demo Recall) IMPRESSION: 1. Paroxysmal atrial fibrillation on amiodarone -in SR by ecg 08/11 2. Hypertension, mildly elevated. 3. Dyslipidemia, not on statin at this time. 4. Status post acute cerebrovascular accident, in rehab now. 5. Anemia. 6. Parkinson. 7. Psychiatric disorder. Recc: -Now on eliquis -Continue BB/amiodarone at current doses as tolerated -Continue sinemet -PT/OT -Follow volume status clsoely on lasix now BID Consultation Date/Type/Reason Admit Date/Time Aug 09, 2018 at 18:10 Initial Consult Date 08/10/18 Type of Consult Cardiology Reason for Consultation PAF Requesting Provider: CORI JON MD Date/Time of Note DATE: 08/17/18 TIME: 13:25 Exam/Review of Systems Vital Signs Vitals Vital Signs Date Temp Pulse Resp B/P (MAP) Pulse Ox O2 O2 Flow FiO2 Time Delivery Rate 08/17/18 98.0 55 18 140/53 98 Room Air 06:00 (82) 08/16/18 2.0 08:00 Intake and Output 08/16/18 08/16/18 08/17/18 1515:00 23:00 07:00 IntakeIntake Total 150 ml 50 ml OutputOutput Total 200 ml BalanceBalance -50 ml 50 ml Exam Exam Review of Systems: CONSTITUTIONAL: No fevers, chills. PULMONARY: No sob CARDIOVASCULAR: No chest pain/palpitations GASTROINTESTINAL: No nausea/vomiting. GENITOURINARY: No hematuria/dysuria. MUSCULOSKELETAL: No myagias/arthalgias. PSYCHIATRIC: The patient denies depression. NEUROLOGIC: No weakness Constitutional: alert Psych: no complaints Head: normocephalic ENMT: mucosa pink and moist Neck: supple, jvd (9 cm water) Respiratory: clear to auscultation Cardiovascular: regular rate and rhythm Gastrointestinal: soft, non-tender Musculoskeletal: muscle tone (normal) Extremities: edema (none) Neurological: other (No focal deficits) Labs Result Diagram: 08/16/1861108/16/18611 Medications Medications Current Medications Docusate Sodium (Colace) 100 mg BID PO Last administered on 08/17/18at 08:44; Admin Dose 100 MG; Start 08/09/18 at 21:00 Senna (Senokot) 1 tab HS PO Last administered on 08/16/18 20:50; Admin Dose 1 TAB; Start 08/09/18 at 21:00 Magnesium Hydroxide (Milk Of Mag) 30 ml BID PRN PO CONSTIPATION; Start 08/09/18 at 19:00 Lactulose (Enulose) 20 gm DAILY PRN PO CONSTIPATION; Start 08/09/18 at 19:00 Bisacodyl (Dulcolax Supp) 10 mg DAILY PRN [place] CONSTIPATION; Start 08/09/18 at 19:00 [facility] This patient mendoza... PRN PRN XX WOUND CARE; Start 08/09/18 at 19:00 Amiodarone HCl (Cordarone) 200 mg BID PO Last administered on 08/17/18 08:46; Admin Dose 200 MG; Start 08/09/18 at 21:00 Pantoprazole (Protonix Tab) 40 mg DAILY@06 PO Last administered on 08/17/18 06:15; Admin Dose 40 MG; Start 08/10/18 at 06:00 Lorazepam (Ativan) 1 mg HS PO Last administered on 08/16/18 20:50; Admin Dose 1 MG; Start 08/09/18 at 21:00 Escitalopram Oxalate (Lexapro) 20 mg DAILY PO Last administered on 08/17/18 08:44; Admin Dose 20 MG; Start 08/10/18 at 09:00 Folic Acid (Folic Acid) 1 mg DAILY PO Last administered on 08/17/18 08:44; Admin Dose 1 MG; Start 08/10/18 at 09:00 Lubiprostone (Amitiza) 24 mcg BID PO Last administered on 08/17/18 08:44; Admin Dose 24 MCG; Start 08/09/18 at 21:00 Metoprolol Succinate (Toprol Xl) 50 mg BID PO Last administered on 08/17/18 08:45; Admin Dose 50 MG; Start 08/09/18 at 21:00 Pramipexole (Mirapex) 0.5 mg BID PO Last administered on 08/17/18 08:45; Admin Dose 0.5 MG; Start 08/09/18 at 21:00 Magnesium Oxide (Mag-Ox 400) 400 mg DAILY PO Last administered on 08/17/18 08:44; Admin Dose 400 MG; Start 08/10/18 at 09:00 Carbidopa/Levodopa (Sinemet (25/ 100)) 1 tab QID PO Last administered on 08/17/18 12:28; Admin Dose 1 TAB; Start 08/09/18 at 21:00 Acetaminophen (Tylenol Tab) 650 mg Q8 PRN PO MODERATE PAIN LEVEL 4-6 Last administered on 08/10/18 15:18; Admin Dose 650 MG; Start 08/09/18 at 19:30 Apixaban (Eliquis) 2.5 mg BID PO Last administered on 08/17/18 08:46; Admin Dose 2.5 MG; Start 08/11/18 at 09:00 Nifedipine (Procardia Xl) 30 mg BID PO Last administered on 08/17/18 08:45; Admin Dose 30 MG; Start 08/11/18 at 21:00 Tramadol HCl (Ultram) 50 mg Q4H PRN PO SEVERE PAIN LEVEL 7-10 Last administered on 08/16/18 17:35; Admin Dose 50 MG; Start 08/11/18 at 15:30 Nitrofurantoin Macrocrystals (Macrobid) 100 mg BID PO Last administered on 08/17/18 08:44; Admin Dose 100 MG; Start 08/12/18 at 21:00 Furosemide (Lasix) 20 mg BID PO Last administered on 08/17/18 08:45; Admin Dose 20 MG; Start 08/13/18 at 21:00 Lubiprostone (Amitiza) 8 mcg BID PRN PO constipation; Start 08/14/18 at 15:00 Clopidogrel Bisulfate (plaVIX) 75 mg DAILY PO Last administered on 08/17/18 08:45; Admin Dose 75 MG; Start 08/16/18 at 09:00 BETTY CORDOBA Aug 17, 2018 13:26
[2018-08-17 14:00] VITALS: BP 102/66; PULSE 60; RESP 20
--- NOTE | 2018-08-17 14:03 | PN ---
Date/Time of Note Date/Time of Note DATE: 08/17/18 TIME: 14:02 Objective Vital Signs Date Temp Pulse Resp B/P (MAP) Pulse Ox O2 O2 Flow FiO2 Time Delivery Rate 08/17/18 98.0 55 18 140/53 98 Room Air 06:00 (82) 08/16/18 2.0 08:00 Intake and Output 08/16/18 08/16/18 08/17/18 1515:00 23:00 07:00 IntakeIntake Total 150 ml 50 ml OutputOutput Total 200 ml BalanceBalance -50 ml 50 ml Exam INTERDISCIPLINARY TEAM CONFERENCE Attended by PT, OT, ST, Front Office Attendant, Social Work, Rehabilitation Nursing, Electrician Marine and Climbing GuideClinical Educator Exam: Pulm- cta Abd-soft BOWEL- Cont BLADDER-Cont during day SKIN- intact OT- DRESSING-min BATHING-min TOILETING-min PT- BED MOBILITY-min TRANSFERS-min AMBULATION-min 60 feet SPEECH- Dysphagia- soft A/P- Interdisciplinary team conference held today. Please see interdisciplinary sheet. Working toward d.c. on 08/25 with post discharge follow up of physical therapy, occupational therapy. Results/Medications Result Diagram: 08/16/18 0612 08/16/18 0612 Medications Current Medications Docusate Sodium (Colace) 100 mg BID PO Last administered on 08/17/18at 08:44; Admin Dose 100 MG; Start 08/09/18 at 21:00 Senna (Senokot) 1 tab HS PO Last administered on 08/16/18at 20:50; Admin Dose 1 TAB; Start 08/09/18 at 21:00 Magnesium Hydroxide (Milk Of Mag) 30 ml BID PRN PO CONSTIPATION; Start 08/09/18 at 19:00 Lactulose (Enulose) 20 gm DAILY PRN PO CONSTIPATION; Start 08/09/18 at 19:00 Bisacodyl (Dulcolax Supp) 10 mg DAILY PRN [place] CONSTIPATION; Start 08/09/18 at 19:00 Miscellaneous Information (Pending [facility] Order For [facility]ound Care) This patient mendoza... PRN PRN XX WOUND CARE; Start 08/09/18 at 19:00 Amiodarone HCl (Cordarone) 200 mg BID PO Last administered on 08/17/18at 08:46; Admin Dose 200 MG; Start 08/09/18 at 21:00 Pantoprazole (Protonix Tab) 40 mg DAILY@06 PO Last administered on 08/17/18 06:15; Admin Dose 40 MG; Start 08/10/18 at 06:00 Lorazepam (Ativan) 1 mg HS PO Last administered on 08/16/18 20:50; Admin Dose 1 MG; Start 08/09/18 at 21:00 Escitalopram Oxalate (Lexapro) 20 mg DAILY PO Last administered on 08/17/18 08:44; Admin Dose 20 MG; Start 08/10/18 at 09:00 Folic Acid (Folic Acid) 1 mg DAILY PO Last administered on 08/17/18 08:44; Admin Dose 1 MG; Start 08/10/18 at 09:00 Lubiprostone (Amitiza) 24 mcg BID PO Last administered on 08/17/18 08:44; Admin Dose 24 MCG; Start 08/09/18 at 21:00 Metoprolol Succinate (Toprol Xl) 50 mg BID PO Last administered on 08/17/18 08:45; Admin Dose 50 MG; Start 08/09/18 at 21:00 Pramipexole (Mirapex) 0.5 mg BID PO Last administered on 08/17/18 08:45; Admin Dose 0.5 MG; Start 08/09/18 at 21:00 Magnesium Oxide (Mag-Ox 400) 400 mg DAILY PO Last administered on 08/17/18 08:44; Admin Dose 400 MG; Start 08/10/18 at 09:00 Carbidopa/Levodopa (Sinemet (25/ 100)) 1 tab QID PO Last administered on 08/17/18 12:28; Admin Dose 1 TAB; Start 08/09/18 at 21:00 Acetaminophen (Tylenol Tab) 650 mg Q8 PRN PO MODERATE PAIN LEVEL 4-6 Last administered on 08/10/18 15:18; Admin Dose 650 MG; Start 08/09/18 at 19:30 Apixaban (Eliquis) 2.5 mg BID PO Last administered on 08/17/18 08:46; Admin Dose 2.5 MG; Start 08/11/18 at 09:00 Nifedipine (Procardia Xl) 30 mg BID PO Last administered on 08/17/18 08:45; Admin Dose 30 MG; Start 08/11/18 at 21:00 Tramadol HCl (Ultram) 50 mg Q4H PRN PO SEVERE PAIN LEVEL 7-10 Last administered on 08/16/18at 17:35; Admin Dose 50 MG; Start 08/11/18 at 15:30 Nitrofurantoin Macrocrystals (Macrobid) 100 mg BID PO Last administered on 08/17/18at 08:44; Admin Dose 100 MG; Start 08/12/18 at 21:00 Furosemide (Lasix) 20 mg BID PO Last administered on 08/17/18at 08:45; Admin Dose 20 MG; Start 08/13/18 at 21:00 Lubiprostone (Amitiza) 8 mcg BID PRN PO constipation; Start 08/14/18 at 15:00 Clopidogrel Bisulfate (plaVIX) 75 mg DAILY PO Last administered on 08/17/18at 08:45; Admin Dose 75 MG; Start 08/16/18 at 09:00 JAMES PYLE MD Aug 17, 2018 14:03
--- NOTE | 2018-08-17 16:45 | PN ---
Date/Time of Note Date/Time of Note DATE: 08/17/18 TIME: 16:44 Assessment/Plan VTE Prophylaxis Risk score (from Ns)>0 risk: 4 SCD applied (from [facility]): Yes Pharmacological prophylaxis: NA/contraindicated Pharm contraindication: low risk/ambulating Lines/Catheters Urinary Cath still in place: No Assessment/Plan Hospital Course 82-year-old female with: 1. 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 2. Hypertension. 3. Hyperlipidemia. 4. Parkinson disease. 5. Chronic atrial fibrillation. 6 UTI ecoli resistant to cipro Plan -Continue with Plavix -ECOLI resistant to cipro> start rocephin > however switched to nitrofurantoin finish tomorrow -Started on Eliquis per cardiology for A. fib -Continue with statin - cw nifedipine/MTP/ Lasix now twice daily/amiodarone continue with Sinemet -Follow with neuro and cardiac recs -PT/OT Result Diagram: 08/16/1812 08/16/18 0612 Subjective 24 Hr Interval Summary Free Text/Dictation No complaints. Exam/Review of Systems Exam Vitals Vital Signs Date Temp Pulse Resp B/P (MAP) Pulse Ox O2 O2 Flow FiO2 Time Delivery Rate 08/17/18 98.0 55 18 140/53 98 Room Air 06:00 (82) 08/16/18 2.0 08:00 Intake and Output 08/16/18 08/16/18 08/17/18 1515:00 23:00 07:00 IntakeIntake Total 150 ml 50 ml OutputOutput Total 200 ml BalanceBalance -50 ml 50 ml Exam Constitutional: alert, oriented Neck: supple Respiratory: clear to auscultation Cardiovascular: regular rate and rhythm Gastrointestinal: soft edema Medications Medication Current Medications Docusate Sodium (Colace) 100 mg BID PO Last administered on 08/17/18at 08:44; Admin Dose 100 MG; Start 08/09/18 at 21:00 Senna (Senokot) 1 tab HS PO Last administered on 08/16/18at 20:50; Admin Dose 1 TAB; Start 08/09/18 at 21:00 Magnesium Hydroxide (Milk Of Mag) 30 ml BID PRN PO CONSTIPATION; Start 08/09/18 at 19:00 Lactulose (Enulose) 20 gm DAILY PRN PO CONSTIPATION; Start 08/09/18 at 19:00 Bisacodyl (Dulcolax Supp) 10 mg DAILY PRN [place] CONSTIPATION; Start 08/09/18 at 19:00 Miscellaneous Information (Pending [facility] Order For Wound Care) This patient mendoza... PRN PRN XX WOUND CARE; Start 08/09/18 at 19:00 Amiodarone HCl (Cordarone) 200 mg BID PO Last administered on 08/17/18 08:46; Admin Dose 200 MG; Start 08/09/18 at 21:00 Pantoprazole (Protonix Tab) 40 mg DAILY@06 PO Last administered on 08/17/18 06:15; Admin Dose 40 MG; Start 08/10/18 at 06:00 Lorazepam (Ativan) 1 mg HS PO Last administered on 08/16/18 20:50; Admin Dose 1 MG; Start 08/09/18 at 21:00 Escitalopram Oxalate (Lexapro) 20 mg DAILY PO Last administered on 08/17/18 08:44; Admin Dose 20 MG; Start 08/10/18 at 09:00 Folic Acid (Folic Acid) 1 mg DAILY PO Last administered on 08/17/18 08:44; Admin Dose 1 MG; Start 08/10/18 at 09:00 Lubiprostone (Amitiza) 24 mcg BID PO Last administered on 08/17/18 08:44; Admin Dose 24 MCG; Start 08/09/18 at 21:00 Metoprolol Succinate (Toprol Xl) 50 mg BID PO Last administered on 08/17/18 08:45; Admin Dose 50 MG; Start 08/09/18 at 21:00 Pramipexole (Mirapex) 0.5 mg BID PO Last administered on 08/17/18 08:45; Admin Dose 0.5 MG; Start 08/09/18 at 21:00 Magnesium Oxide (Mag-Ox 400) 400 mg DAILY PO Last administered on 08/17/18 08:44; Admin Dose 400 MG; Start 08/10/18 at 09:00 Carbidopa/Levodopa (Sinemet (25/ 100)) 1 tab QID PO Last administered on 9at 12:28; Admin Dose 1 TAB; Start 08/09/18 at 21:00 Acetaminophen (Tylenol Tab) 650 mg Q8 PRN PO MODERATE PAIN LEVEL 4-6 Last administered on 08/10/18 15:18; Admin Dose 650 MG; Start 08/09/18 at 19:30 Apixaban (Eliquis) 2.5 mg BID PO Last administered on 08/17/18 08:46; Admin Dose 2.5 MG; Start 08/11/18 at 09:00 Nifedipine (Procardia Xl) 30 mg BID PO Last administered on 08/17/18 08:45; Admin Dose 30 MG; Start 08/11/18 at 21:00 Tramadol HCl (Ultram) 50 mg Q4H PRN PO SEVERE PAIN LEVEL 7-10 Last administered on 08/16/18 17:35; Admin Dose 50 MG; Start 08/11/18 at 15:30 Nitrofurantoin Macrocrystals (Macrobid) 100 mg BID PO Last administered on 08/17/18 08:44; Admin Dose 100 MG; Start 08/12/18 at 21:00 Furosemide (Lasix) 20 mg BID PO Last administered on 08/17/18 08:45; Admin Dose 20 MG; Start 08/13/18 at 21:00 Lubiprostone (Amitiza) 8 mcg BID PRN PO constipation; Start 08/14/18 at 15:00 Clopidogrel Bisulfate (plaVIX) 75 mg DAILY PO Last administered on 08/17/18 08:45; Admin Dose 75 MG; Start 08/16/18 at 09:00 CORI JON MD Aug 17, 2018 16:45
[2018-08-17 20:00] VITALS: BP 98/51; PULSE 57; RESP 18
[2018-08-17] MEDS: SENNA TAB PO SCH (21:00)
[2018-08-17] MEDS: LORAZEPAM 0.5 MG TAB PO SCH (21:26)
--- NOTE | 2018-08-17 23:00 | HKNOTE ---
DATE OF SERVICE: 08/17/2018 HISTORY OF PRESENT ILLNESS: Amando Plata is an 82-year-old status post stroke, paroxysmal atrial fibri llation, hypertension, dyslipidemia, anemia, and parkinsonism in which the patient started on Eliquis 2.5 twice a day [address] Dr[address] Aiken for atrial fibrillation and stroke prevention. PHYSICAL EXAMINATION: GENERAL: The patient is alert, awake, oriented, and following simple commands. CRANIAL NERVES: Cranial nerve II: Pupils equal on both sides, reactive to light. Cranial nerves II I, IV and : Extraocular muscles are intact without nystagmus. Cranial nerve V: Equal sensation t o face. Cranial nerve VII: Symmetrical face. Cranial nerve VIII: Decreased hearing bilaterally. Cranial X: Elevates palate. Cranial nerve XI: Elevates shoulder 5/5. Cranial nerve XII: With str aight tongue. MOTOR: Right side 4+/5. Sensation decreased in the right side for light touch and temperature. COORDINATION: Ptjbhk-do-ylyj test intact. HEART: Regular rate and rhythm. LUNGS: Equal breaths. ABDOMEN: Soft, relaxed, and nondistended. No tenderness. ASSESSMENT AND PLAN: 1. The patient is status post lacunar infarction. 2. History of Parkinson's and atrial fibrillation in which the patient is on Eliquis. 3. Hypertension. Keep the blood pressure at the level of 140/90. The patient already on metoprolol . 4. Gait difficulty in which the patient is under physical therapy. 5. Parkinsonism. Continue the patient on Sinemet 100/25 mg 3 to 4 times a day. 6. Keep the patient on deep venous thrombosis prophylaxis and decubitus ulcer prophylaxis. Dictated By: COLIN LOW MD NA/NTS Conf#: [id number] DID#: [id number] CC: COLIN LOW MD; JAMES PYLE MD; CORI JON; BETTY AIKEN MD;*End*
[2018-08-18 02:00] VITALS: BP 121/57; PULSE 54; RESP 18
[2018-08-18] MEDS: PANTOPRAZOLE (EC) 40 MG TAB PO SCH (06:03)
[2018-08-18 07:00] VITALS: BP 139/61; PULSE 62; RESP 18
[2018-08-18] MEDS: CARBIDOPA/LEVODOPA (25/100) TAB PO SCH ×4 (09:00→21:14)
[2018-08-18] MEDS: METOPROLOL (XL) 50 MG TAB PO SCH ×2 (09:00→21:00)
[2018-08-18] MEDS: FUROSEMIDE 20 MG TAB PO SCH ×2 (09:00→21:00)
[2018-08-18] MEDS: NIFEdipine (XL) 30 MG TAB PO SCH (09:00)
[2018-08-18] MEDS: AMIODARONE 200 MG TAB PO SCH ×2 (09:00→21:00)
[2018-08-18] MEDS: FOLIC ACID 1 MG TAB PO SCH (10:43)
[2018-08-18] MEDS: MAGNESIUM OXIDE 400 MG TAB PO SCH (10:43)
[2018-08-18] MEDS: DOCUSATE SODIUM 100 MG CAP PO SCH ×2 (10:43→21:00)
[2018-08-18] MEDS: ESCITALOPRAM 10 MG TAB PO SCH (10:44)
[2018-08-18] MEDS: APIXABAN 5 MG TABLET PO SCH ×2 (10:44→21:13)
[2018-08-18] MEDS: LUBIPROSTONE 24 MCG CAP PO SCH ×2 (10:45→21:00)
[2018-08-18] MEDS: PRAMIPEXOLE 0.25 MG TAB PO SCH ×2 (10:45→21:13)
[2018-08-18] MEDS: NITROFURANTOIN (SR) 100 MG CAP PO SCH ×2 (10:45→21:13)
[2018-08-18] MEDS: CLOPIDOGREL 75 MG TAB PO SCH (10:45)
--- NOTE | 2018-08-18 10:51 | CONS ---
Consult Date/Type/Reason Admit Date/Time Aug 09, 2018 at 18:10 Initial Consult Date Requesting Provider: CORI JON MD Date/Time of Note DATE: 08/18/18 TIME: 10:50 Subjective NO acute events - pt comfortable - in good fluid status - compliant with rehab. ROS: No fever, no chills, no nausea, no vomiting, no diarrhea/constipation No recent weight changes No chest pain, no PND, no orthopnea - mild SOB No dizziness, blurred vision No thirst, no heat or cold intolerance Objective Vitals Vital Signs Date Temp Pulse Resp B/P (MAP) Pulse Ox O2 O2 Flow FiO2 Time Delivery Rate 08/18/18 98.0 62 18 139/61 97 Room Air 07:00 (87) 08/16/18 2.0 08:00 Intake and Output 08/17/18 08/17/18 08/18/18 1515:00 23:00 07:00 IntakeIntake Total 200 ml 240 ml BalanceBalance 200 ml 240 ml Exam General: WN/WD/NAD, AOx 3 HEENT: Unicetric/atraumatic/EOMI (follow commands) a little slow NECK: JVD elevated, no thyromegaly Lymph: no lymphadenopathy HEART: regular with no S3, II/ systolic murmur at apex LUNGS: Coarse sounds ABD: soft, NT, ND, +BS : Intact Neuro: non focal SKIN: chronic changes EXT: trace edema Results/Medications Result Diagram: 08/16/1861108/16/18611 Home Meds Active Scripts Clonidine Hcl* (Clonidine Hcl*) 0.2 Mg Tablet, 0.2 MG PO Q8 PRN for ELEVATED SYSTOLIC BP, #30 TAB Prov:TREVOR HARRISONEros 07/08/15 Reported Medications Lubiprostone* (Amitiza*) 24 Mcg Capsule, 24 MCG PO BID, #60 CAP 07/06/15 Carbidopa-Levodopa* (Sinemet*) 25-100 Mg Tab, 1 TAB PO QID, TAB 07/06/15 Loperamide Hcl* (Loperamide Hcl*) 2 Mg Cap, 2 MG PO TID, CAP 07/06/15 Valsartan* (Diovan*) 160 Mg Tablet, 160 MG PO DAILY, TAB 07/06/15 Dexlansoprazole (Dexilant) 60 Mg Cap., 60 MG PO DAILY, #30 CAP 07/06/15 Metoprolol Succinate* (Toprol XL*) 50 Mg Tab.er.24h, 50 MG PO DAILY, #30 TAB 07/06/15 Citalopram Hydrobromide* (Celexa*) 20 Mg Tablet, 20 MG PO DAILY, #30 TAB 07/06/15 Aspirin (Low Dose Aspirin) 81 Mg Tablet., 81 MG PO DAILY, #30 TAB 07/06/15 Digoxin* (Digoxin*) 0.25 Mg Tab, 0.25 MG PO DAILY, #30 TAB 07/06/15 Clopidogrel Bisulfate (Clopidogrel) 75 Mg Tablet, 75 MG PO DAILY, #30 TAB 07/06/15 Lorazepam* (Lorazepam*) 1 Mg Tablet, 1 MG PO BID PRN for ANXIETY, #30 TAB 07/06/15 Triamterene-HCTZ* (Triamterene-HCTZ*) 37.5 - 25 Mg Capsule, 1 CAP PO DAILY, CAP 07/06/15 Fluticasone Propionate (Flonase Allergy Relief) 9.9 Ml [place].susp, 1 SPRAY NASAL BID, #1 BOTTLE TO EACH NOSTRIL 07/06/15 Magnesium Oxide* (Mag-Oxide*) 400 Mg Tablet, 400 MG PO BID, TAB 07/06/15 Folic Acid* (Folic Acid*) 1 Mg Tablet, 1 MG PO DAILY, TAB 07/06/15 Medications Current Medications Docusate Sodium (Colace) 100 mg BID PO Last administered on 08/17/18at 08:44; Admin Dose 100 MG; Start 08/09/18 at 21:00 Senna (Senokot) 1 tab HS PO Last administered on 08/16/18at 20:50; Admin Dose 1 TAB; Start 08/09/18 at 21:00 Magnesium Hydroxide (Milk Of Mag) 30 ml BID PRN PO CONSTIPATION; Start 08/09/18 at 19:00 Lactulose (Enulose) 20 gm DAILY PRN PO CONSTIPATION; Start 08/09/18 at 19:00 Bisacodyl (Dulcolax Supp) 10 mg DAILY PRN [place] CONSTIPATION; Start 08/09/18 at 19:00 Miscellaneous Information (Pending [facility] Order For Wound Care) This patient mendoza... PRN PRN XX WOUND CARE; Start 08/09/18 at 19:00 Amiodarone HCl (Cordarone) 200 mg BID PO Last administered on 08/17/18 08:46; Admin Dose 200 MG; Start 08/09/18 at 21:00 Pantoprazole (Protonix Tab) 40 mg DAILY@06 PO Last administered on 08/18/18 06:03; Admin Dose 40 MG; Start 08/10/18 at 06:00 Lorazepam (Ativan) 1 mg HS PO Last administered on 08/17/18 21:26; Admin Dose 1 MG; Start 08/09/18 at 21:00 Escitalopram Oxalate (Lexapro) 20 mg DAILY PO Last administered on 08/17/18 08:44; Admin Dose 20 MG; Start 08/10/18 at 09:00 Folic Acid (Folic Acid) 1 mg DAILY PO Last administered on 08/17/18 08:44; Admin Dose 1 MG; Start 08/10/18 at 09:00 Lubiprostone (Amitiza) 24 mcg BID PO Last administered on 08/17/18 08:44; Admin Dose 24 MCG; Start 08/09/18 at 21:00 Metoprolol Succinate (Toprol Xl) 50 mg BID PO Last administered on 08/17/18 08:45; Admin Dose 50 MG; Start 08/09/18 at 21:00 Pramipexole (Mirapex) 0.5 mg BID PO Last administered on 08/17/18 21:26; Admin Dose 0.5 MG; Start 08/09/18 at 21:00 Magnesium Oxide (Mag-Ox 400) 400 mg DAILY PO Last administered on 08/17/18 08:44; Admin Dose 400 MG; Start 08/10/18 at 09:00 Carbidopa/Levodopa (Sinemet (25/ 100)) 1 tab QID PO Last administered on 08/17/18 21:26; Admin Dose 1 TAB; Start 08/09/18 at 21:00 Acetaminophen (Tylenol Tab) 650 mg Q8 PRN PO MODERATE PAIN LEVEL 4-6 Last administered on 08/10/18 15:18; Admin Dose 650 MG; Start 08/09/18 at 19:30 Apixaban (Eliquis) 2.5 mg BID PO Last administered on 08/17/18 21:26; Admin Dose 2.5 MG; Start 08/11/18 at 09:00 Nifedipine (Procardia Xl) 30 mg BID PO Last administered on 08/17/18 08:45; Admin Dose 30 MG; Start 08/11/18 at 21:00 Tramadol HCl (Ultram) 50 mg Q4H PRN PO SEVERE PAIN LEVEL 7-10 Last administered on 08/16/18at 17:35; Admin Dose 50 MG; Start 08/11/18 at 15:30 Nitrofurantoin Macrocrystals (Macrobid) 100 mg BID PO Last administered on 08/17/18at 21:26; Admin Dose 100 MG; Start 08/12/18 at 21:00; Stop 08/19/18 at 20:59 Furosemide (Lasix) 20 mg BID PO Last administered on 08/17/18 08:45; Admin Dose 20 MG; Start 08/13/18 at 21:00 Lubiprostone (Amitiza) 8 mcg BID PRN PO constipation; Start 08/14/18 at 15:00 Clopidogrel Bisulfate (plaVIX) 75 mg DAILY PO Last administered on 08/17/18at 08:45; Admin Dose 75 MG; Start 08/16/18 at 09:00 Assessment/Plan Hospital Course (Demo Recall) 1. Paroxysmal atrial fibrillation on amiodarone - converted to Eliquis 2.5 mg po bid- rate controlled now. Rate controlled now. 2. Hypertension, mildly elevated - con't to add Rx to goal s/p CVA. On Plavix. Treated. In range. 3. Dyslipidemia, not on statin at this time. 4. Status post acute cerebrovascular accident, in rehab now - compliant with rehab. Con;t rehab - doing well. Con't rehab. Compliant. 5. Anemia - H/H stable - no bleeding now. Con't to follow. 10.8 Hg now. 6. Parkinson. 7. Psychiatric disorder- treated. NO agitation now. FLACO KITCHEN MD Aug 18, 2018 10:51
--- NOTE | 2018-08-18 13:02 | PN ---
Date/Time of Note Date/Time of Note DATE: 08/18/18 TIME: 13:02 Subjective No new complaints. RN reports patient's sBP has been around 100 Objective Vital Signs Date Temp Pulse Resp B/P (MAP) Pulse Ox O2 O2 Flow FiO2 Time Delivery Rate 08/18/18 98.0 62 18 139/61 97 Room Air 07:00 (87) 08/16/18 2.0 08:00 Intake and Output 08/17/18 08/17/18 08/18/18 1515:00 23:00 07:00 IntakeIntake Total 200 ml 240 ml BalanceBalance 200 ml 240 ml Exam pulm-cta abd-soft sba ambulation Results/Medications Result Diagram: 08/16/1861108/16/18 06 Medications Current Medications Docusate Sodium (Colace) 100 mg BID PO Last administered on 08/18/18 10:43; Admin Dose 100 MG; Start 08/09/18 at 21:00 Senna (Senokot) 1 tab HS PO Last administered on 08/16/18at 20:50; Admin Dose 1 TAB; Start 08/09/18 at 21:00 Magnesium Hydroxide (Milk Of Mag) 30 ml BID PRN PO CONSTIPATION; Start 08/09/18 at 19:00 Lactulose (Enulose) 20 gm DAILY PRN PO CONSTIPATION; Start 08/09/18 at 19:00 Bisacodyl (Dulcolax Supp) 10 mg DAILY PRN [place] CONSTIPATION; Start 08/09/18 at 19:00 Miscellaneous Information (Pending [facility] Order For Wound Care) This patient mendoza... PRN PRN XX WOUND CARE; Start 08/09/18 at 19:00 Amiodarone HCl (Cordarone) 200 mg BID PO Last administered on 08/17/18 08:46; Admin Dose 200 MG; Start 08/09/18 at 21:00 Pantoprazole (Protonix Tab) 40 mg DAILY@06 PO Last administered on 08/18/18 06:03; Admin Dose 40 MG; Start 08/10/18 at 06:00 Lorazepam (Ativan) 1 mg HS PO Last administered on 08/17/18 21:26; Admin Dose 1 MG; Start 08/09/18 at 21:00 Escitalopram Oxalate (Lexapro) 20 mg DAILY PO Last administered on 08/18/18 10:44; Admin Dose 20 MG; Start 08/10/18 at 09:00 Folic Acid (Folic Acid) 1 mg DAILY PO Last administered on 08/18/18 10:43; Admin Dose 1 MG; Start 08/10/18 at 09:00 Lubiprostone (Amitiza) 24 mcg BID PO Last administered on 08/18/18 10:45; Admin Dose 24 MCG; Start 08/09/18 at 21:00 Metoprolol Succinate (Toprol Xl) 50 mg BID PO Last administered on 08/17/18 08:45; Admin Dose 50 MG; Start 08/09/18 at 21:00 Pramipexole (Mirapex) 0.5 mg BID PO Last administered on 08/18/18 10:45; Admin Dose 0.5 MG; Start 08/09/18 at 21:00 Magnesium Oxide (Mag-Ox 400) 400 mg DAILY PO Last administered on 08/18/18 10:43; Admin Dose 400 MG; Start 08/10/18 at 09:00 Carbidopa/Levodopa (Sinemet (25/ 100)) 1 tab QID PO Last administered on 08/17/18 21:26; Admin Dose 1 TAB; Start 08/09/18 at 21:00 Acetaminophen (Tylenol Tab) 650 mg Q8 PRN PO MODERATE PAIN LEVEL 4-6 Last administered on 08/10/18 15:18; Admin Dose 650 MG; Start 08/09/18 at 19:30 Apixaban (Eliquis) 2.5 mg BID PO Last administered on 08/18/18 10:44; Admin Dose 2.5 MG; Start 08/11/18 at 09:00 Nifedipine (Procardia Xl) 30 mg BID PO Last administered on 08/17/18 08:45; Admin Dose 30 MG; Start 08/11/18 at 21:00 Tramadol HCl (Ultram) 50 mg Q4H PRN PO SEVERE PAIN LEVEL 7-10 Last administered on 08/16/18 17:35; Admin Dose 50 MG; Start 08/11/18 at 15:30 Nitrofurantoin Macrocrystals (Macrobid) 100 mg BID PO Last administered on 08/18/18 10:45; Admin Dose 100 MG; Start 08/12/18 at 21:00; Stop 08/19/18 at 20:59 Furosemide (Lasix) 20 mg BID PO Last administered on 08/17/18at 08:45; Admin Do se 20 MG; Start 08/13/18 at 21:00 Lubiprostone (Amitiza) 8 mcg BID PRN PO constipation; Start 08/14/18 at 15:00 Clopidogrel Bisulfate (plaVIX) 75 mg DAILY PO Last administered on 08/18/18at 10:45; Admin Dose 75 MG; Start 08/16/18 at 09:00 Assessment/Plan Additional Assessment/Plan Rehab- 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 Continue current rehab activities Hypertension. Dysphagia-speech therapy History of atrial fibrillation. JAMES PYLE MD Aug 18, 2018 13:02
[2018-08-18 14:00] VITALS: BP 116/58; PULSE 61; RESP 18
--- NOTE | 2018-08-18 15:06 | CONS ---
DATE OF ADMISSION: 08/09/2018 DATE OF CONSULTATION: HISTORY OF PRESENT ILLNESS: The patient is 82 years old status post atrial fibrillation, hypertensio n, dyslipidemia, anemia, parkinsonism, gait difficulty, status post stroke, in which the patient uses Eliquis, in which the patient is under acute rehabilitation facility for further evaluation and noble tment. PHYSICAL EXAMINATION: GENERAL: Today, the patient is alert, awake, oriented, following simple commands. CRANIAL NERVES: Cranial nerve II: Pupils are equal on both sides, reactive to light. Cranial nerve s III, IV and : Extraocular muscles are intact without nystagmus. Cranial nerve V: Equal sensati on to face. Cranial nerve VII: Symmetrical face. Cranial nerve VIII: Decreased hearing bilaterall y. Cranial IX and X: Elevates palate. Cranial nerve XI: Elevates shoulder is 5/5. Cranial nerve XII: With straight tongue. MOTOR: Right side is 4/5. Sensation is decreased in the right side for light touch and temperature. COORDINATION: Lctnyz-dz-waqg test is intact. HEART: Regular rate and rhythm. LUNGS: Equal breath sounds. ABDOMEN: Soft, relaxed, nondistended, no tenderness. ASSESSMENT AND PLAN: 1. The patient is status post lacunar infarction. Continue the patient on Eliquis twice a day. 2. History of atrial fibrillation. Keep the patient on Eliquis, followed by cardiology consult. 3. History of parkinsonism. Keep the patient on Sinemet 100/25 mg 4 times a day. 4. Gait difficulty. Continue the patient on physical therapy. 5. Keep the patient on deep venous thrombosis prophylaxis and decubitus ulcer prophylaxis. Dictated By: COLIN LOW MD NA/NTS Conf#: [id number] DID#: [id number] CC: JAMES PYLE MD; CORI JON; BETTY CORDOBA MD;*EndCC*
--- NOTE | 2018-08-18 15:14 | PN ---
Date/Time of Note Date/Time of Note DATE: 08/18/18 TIME: 15:13 Assessment/Plan VTE Prophylaxis Risk score (from Ns)>0 risk: 4 SCD applied (from [facility] [place] Yes Pharmacological prophylaxis: NA/contraindicated Pharm contraindication: low risk/ambulating Lines/Catheters Urinary Cath still in place: No Assessment/Plan Hospital Course 82-year-old female with: 1. 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 2. Hypertension. 3. Hyperlipidemia. 4. Parkinson disease. 5. Chronic atrial fibrillation. 6 UTI ecoli resistant to cipro Plan -Continue with Plavix -ECOLI resistant to cipro> start rocephin > however switched to nitrofurantoin finish today - Holding parameters for bp meds - decrease nifedipine 30 -cw on Eliquis per cardiology for A. fib -Continue with statin - cw nifedipine/MTP/ Lasix now twice daily/amiodarone continue with Sinemet -Follow with neuro and cardiac recs -PT/OT Result Diagram: 08/16/1861108/16/18 0612 Subjective 24 Hr Interval Summary Free Text/Dictation some pain in left foot Exam/Review of Systems Exam Vitals Vital Signs Date Temp Pulse Resp B/P (MAP) Pulse Ox O2 O2 Flow FiO2 Time Delivery Rate 08/18/18 97.8 61 18 116/58 97 Room Air 14:00 (77) 08/16/18 2.0 08:00 Intake and Output 08/17/18 08/17/18 08/18/18 1515:00 23:00 07:00 IntakeIntake Total 200 ml 240 ml BalanceBalance 200 ml 240 ml Exam Exam Constitutional: alert, oriented Neck: supple Respiratory: clear to auscultation Cardiovascular: regular rate and rhythm Gastrointestinal: soft edema Medications Medication Current Medications Docusate Sodium (Colace) 100 mg BID PO Last administered on 08/18/18at 10:43; Admin Dose 100 MG; Start 08/09/18 at 21:00 Senna (Senokot) 1 tab HS PO Last administered on 08/16/18at 20:50; Admin Dose 1 TAB; Start 08/09/18 at 21:00 Magnesium Hydroxide (Milk Of Mag) 30 ml BID PRN PO CONSTIPATION; Start 08/09/18 at 19:00 Lactulose (Enulose) 20 gm DAILY PRN PO CONSTIPATION; Start 08/09/18 at 19:00 Bisacodyl (Dulcolax Supp) 10 mg DAILY PRN [place] CONSTIPATION; Start 08/09/18 at 19:00 Miscellaneous Information (Pending Santyl Order For Wound Care) This patient mendoza... PRN PRN XX WOUND CARE; Start 08/09/18 at 19:00 Amiodarone HCl (Cordarone) 200 mg BID PO Last administered on 08/17/18 08:46; Admin Dose 200 MG; Start 08/09/18 at 21:00 Pantoprazole (Protonix Tab) 40 mg DAILY@06 PO Last administered on 08/18/18 06:03; Admin Dose 40 MG; Start 08/10/18 at 06:00 Lorazepam (Ativan) 1 mg HS PO Last administered on 08/17/18 21:26; Admin Dose 1 MG; Start 08/09/18 at 21:00 Escitalopram Oxalate (Lexapro) 20 mg DAILY PO Last administered on 08/18/18 10:44; Admin Dose 20 MG; Start 08/10/18 at 09:00 Folic Acid (Folic Acid) 1 mg DAILY PO Last administered on 08/18/18 10:43; Admin Dose 1 MG; Start 08/10/18 at 09:00 Lubiprostone (Amitiza) 24 mcg BID PO Last administered on 08/18/18 10:45; Admin Dose 24 MCG; Start 08/09/18 at 21:00 Metoprolol Succinate (Toprol Xl) 50 mg BID PO Last administered on 08/17/18 08:45; Admin Dose 50 MG; Start 08/09/18 at 21:00 Pramipexole (Mirapex) 0.5 mg BID PO Last administered on 08/18/18 10:45; Admin Dose 0.5 MG; Start 08/09/18 at 21:00 Magnesium Oxide (Mag-Ox 400) 400 mg DAILY PO Last administered on 08/18/18 10:43; Admin Dose 400 MG; Start 08/10/18 at 09:00 Carbidopa/Levodopa (Sinemet (25/ 100)) 1 tab QID PO Last administered on 08/18/18 13:50; Admin Dose 1 TAB; Start 08/09/18 at 21:00 Acetaminophen (Tylenol Tab) 650 mg Q8 PRN PO MODERATE PAIN LEVEL 4-6 Last administered on 08/10/18 15:18; Admin Dose 650 MG; Start 08/09/18 at 19:30 Apixaban (Eliquis) 2.5 mg BID PO Last administered on 08/18/18 10:44; Admin Dose 2.5 MG; Start 08/11/18 at 09:00 Nifedipine (Procardia Xl) 30 mg BID PO Last administered on 08/17/18 08:45; Admin Dose 30 MG; Start 08/11/18 at 21:00 Tramadol HCl (Ultram) 50 mg Q4H PRN PO SEVERE PAIN LEVEL 7-10 Last administered on 08/16/18 17:35; Admin Dose 50 MG; Start 08/11/18 at 15:30 Nitrofurantoin Macrocrystals (Macrobid) 100 mg BID PO Last administered on 08/18/18 10:45; Admin Dose 100 MG; Start 08/12/18 at 21:00; Stop 08/19/18 at 20:59 Furosemide (Lasix) 20 mg BID PO Last administered on 08/17/18 08:45; Admin Dose 20 MG; Start 08/13/18 at 21:00 Lubiprostone (Amitiza) 8 mcg BID PRN PO constipation; Start 08/14/18 at 15:00 Clopidogrel Bisulfate (plaVIX) 75 mg DAILY PO Last administered on 08/18/18 10:45; Admin Dose 75 MG; Start 08/16/18 at 09:00 CORI JON MD Aug 18, 2018 15:14
[2018-08-18] MEDS: traMADol 50 MG TAB PO PRN (16:18)
--- NOTE | 2018-08-18 16:47 | RADRPT ---
Vent Rate: 57 bpm RR Interval: 1060 msec HI Interval: 237 msec QRS Duration: 105 msec QT Interval: 518 msec QTC Interval: 503 msec P-R-T [employer]: 16 - 57 - 233 degrees Sinus rhythm...normal P axis, V-rate 50- 99 Prolonged HI interval...HI >220, V-rate 50- 90 LVH with secondary repolarization abnormality...multi-LVH criteria, abnrm ST-T ST depression, consider ischemia, diffuse lds...ST <-0.10mV, ant/lat/inf Prolonged QT interval...QTc >500mS Electronically Signed By: Brandon Hopkins
[2018-08-18 20:00] VITALS: BP 103/52; PULSE 58; RESP 16
[2018-08-18] MEDS: SENNA TAB PO SCH (21:00)
[2018-08-18] MEDS: LORAZEPAM 0.5 MG TAB PO SCH (21:13)
[2018-08-19 02:10] VITALS: BP 109/60; PULSE 58; RESP 16
[2018-08-19] MEDS: PANTOPRAZOLE (EC) 40 MG TAB PO SCH (06:42)
[2018-08-19 08:00] VITALS: BP 154/60; PULSE 65; RESP 20
[2018-08-19] MEDS: NITROFURANTOIN (SR) 100 MG CAP PO SCH (09:06)
[2018-08-19] MEDS: FUROSEMIDE 20 MG TAB PO SCH ×2 (09:06→21:09)
[2018-08-19] MEDS: MAGNESIUM OXIDE 400 MG TAB PO SCH (09:06)
[2018-08-19] MEDS: LUBIPROSTONE 24 MCG CAP PO SCH ×2 (09:06→21:09)
[2018-08-19] MEDS: CLOPIDOGREL 75 MG TAB PO SCH (09:06)
[2018-08-19] MEDS: PRAMIPEXOLE 0.25 MG TAB PO SCH ×2 (09:06→21:09)
[2018-08-19] MEDS: FOLIC ACID 1 MG TAB PO SCH (09:07)
[2018-08-19] MEDS: DOCUSATE SODIUM 100 MG CAP PO SCH ×2 (09:07→21:10)
[2018-08-19] MEDS: CARBIDOPA/LEVODOPA (25/100) TAB PO SCH ×4 (09:07→21:09)
[2018-08-19] MEDS: NIFEdipine (XL) 30 MG TAB PO SCH (09:07)
[2018-08-19] MEDS: AMIODARONE 200 MG TAB PO SCH ×2 (09:07→21:00)
[2018-08-19] MEDS: APIXABAN 5 MG TABLET PO SCH ×2 (09:07→21:10)
[2018-08-19] MEDS: ESCITALOPRAM 10 MG TAB PO SCH (09:07)
[2018-08-19] MEDS: METOPROLOL (XL) 50 MG TAB PO SCH ×2 (09:08→21:00)
--- NOTE | 2018-08-19 12:58 | PN ---
Date/Time of Note Date/Time of Note DATE: 08/19/18 TIME: 12:56 Subjective Comfortable, doing well Objective Vital Signs Date Temp Pulse Resp B/P (MAP) Pulse Ox O2 O2 Flow FiO2 Time Delivery Rate 08/19/18 97.6 58 16 109/60 97 Room Air 02:10 (76) 08/16/18 2.0 08:00 Intake and Output 08/18/18 08/18/18 08/19/18 1515:00 23:00 07:00 IntakeIntake Total 800 ml 240 ml OutputOutput Total 400 ml 300 ml BalanceBalance 400 ml -60 ml Exam pulm-cta cga/min ambulation 70 feet Results/Medications Result Diagram: 08/16/1861108/16/18611 Medications Current Medications Docusate Sodium (Colace) 100 mg BID PO Last administered on 08/19/18 09:07; Admin Dose 100 MG; Start 08/09/18 at 21:00 Senna (Senokot) 1 tab HS PO Last administered on 08/16/18at 20:50; Admin Dose 1 TAB; Start 08/09/18 at 21:00 Magnesium Hydroxide (Milk Of Mag) 30 ml BID PRN PO CONSTIPATION; Start 08/09/18 at 19:00 Lactulose (Enulose) 20 gm DAILY PRN PO CONSTIPATION; Start 08/09/18 at 19:00 Bisacodyl (Dulcolax Supp) 10 mg DAILY PRN [place] CONSTIPATION; Start 08/09/18 at 19:00 Miscellaneous Information (Pending [facility] Order For Wound Care) This patient mendoza... PRN PRN XX WOUND CARE; Start 08/09/18 at 19:00 Amiodarone HCl (Cordarone) 200 mg BID PO Last administered on 08/19/18 09:07; Admin Dose 200 MG; Start 08/09/18 at 21:00 Pantoprazole (Protonix Tab) 40 mg DAILY@06 PO Last administered on 08/19/18 06:42; Admin Dose 40 MG; Start 08/10/18 at 06:00 Lorazepam (Ativan) 1 mg HS PO Last administered on 08/18/18 21:13; Admin Dose 1 MG; Start 08/09/18 at 21:00 Escitalopram Oxalate (Lexapro) 20 mg DAILY PO Last administered on 08/19/18 09:07; Admin Dose 20 MG; Start 08/10/18 at 09:00 Folic Acid (Folic Acid) 1 mg DAILY PO Last administered on 08/19/18 09:07; Admin Dose 1 MG; Start 08/10/18 at 09:00 Lubiprostone (Amitiza) 24 mcg BID PO Last administered on 08/19/18 09:06; Admin Dose 24 MCG; Start 08/09/18 at 21:00 Metoprolol Succinate (Toprol Xl) 50 mg BID PO Last administered on 08/19/18 09 :08; Admin Dose 50 MG; Start 08/09/18 at 21:00 Pramipexole (Mirapex) 0.5 mg BID PO Last administered on 08/19/18 09:06; Admin Dose 0.5 MG; Start 08/09/18 at 21:00 Magnesium Oxide (Mag-Ox 400) 400 mg DAILY PO Last administered on 08/19/18 09:06; Admin Dose 400 MG; Start 08/10/18 at 09:00 Carbidopa/Levodopa (Sinemet (25/ 100)) 1 tab QID PO Last administered on 08/19/18 12:23; Admin Dose 1 TAB; Start 08/09/18 at 21:00 Acetaminophen (Tylenol Tab) 650 mg Q8 PRN PO MODERATE PAIN LEVEL 4-6 Last administered on 08/10/18 15:18; Admin Dose 650 MG; Start 08/09/18 at 19:30 Apixaban (Eliquis) 2.5 mg BID PO Last administered on 08/19/18 09:07; Admin Dose 2.5 MG; Start 08/11/18 at 09:00 Tramadol HCl (Ultram) 50 mg Q4H PRN PO SEVERE PAIN LEVEL 7-10 Last administered on 08/18/18 16:18; Admin Dose 50 MG; Start 08/11/18 at 15:30 Nitrofurantoin Macrocrystals (Macrobid) 100 mg BID PO Last administered on 08/19/18 09:06; Admin Dose 100 MG; Start 08/12/18 at 21:00; Stop 08/19/18 at 20:59 Furosemide (Lasix) 20 mg BID PO Last administered on 08/19/18 09:06; Admin Dose 20 MG; Start 08/13/18 at 21:00 Lubiprostone (Amitiza) 8 mcg BID PRN PO constipation; Start 08/14/18 at 15:00 Clopidogrel Bisulfate (plaVIX) 75 mg DAILY PO Last administered on 08/19/18at 09:06; Admin Dose 75 MG; Start 08/16/18 at 09:00 Nifedipine (Procardia Xl) 30 mg DAILY PO Last administered on 08/19/18at 09:07; Admin Dose 30 MG; Start 08/19/18 at 09:00 Assessment/Plan Additional Assessment/Plan Rehab- 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 Good functional progress, continue treatment plan Hypertension. Dysphagia- improving History of atrial fibrillation. JAMES PYLE MD Aug 19, 2018 12:58
--- NOTE | 2018-08-19 13:56 | PN ---
Date/Time of Note Date/Time of Note DATE: 08/19/18 TIME: 13:56 Assessment/Plan VTE Prophylaxis Risk score (from Ns)>0 risk: 4 [place] [facility] [place] Pharmacological prophylaxis: NA/contraindicated Pharm contraindication: low risk/ambulating Lines/Catheters Urinary Cath still in place: No Assessment/Plan Hospital Course 82-year-old female with: 1. 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 2. Hypertension. 3. Hyperlipidemia. 4. Parkinson disease. 5. Chronic atrial fibrillation. 6 UTI ecoli resistant to cipro Plan -Continue with Plavix - s/p abx - cw nifedipine 30 -cw on Eliquis per cardiology for A. fib -Continue with statin - cw nifedipine/MTP/ Lasix now twice daily/amiodarone continue with Sinemet -Follow with neuro and cardiac recs -PT/OT Result Diagram: 08/16/1812 08/16/18 06 Subjective 24 Hr Interval Summary Free Text/Dictation No new events Exam/Review of Systems Exam Vitals Vital Signs Date Temp Pulse Resp B/P (MAP) Pulse Ox O2 O2 Flow FiO2 Time Delivery Rate 08/19/18 97.6 58 16 109/60 97 Room Air 02:10 (76) 08/16/18 2.0 08:00 Intake and Output 08/18/18 08/18/18 08/19/18 1515:00 23:00 07:00 IntakeIntake Total 800 ml 240 ml OutputOutput Total 400 ml 300 ml BalanceBalance 400 ml -60 ml Exam Exam Constitutional: alert, oriented Neck: supple Respiratory: clear to auscultation Cardiovascular: regular rate and rhythm Gastrointestinal: soft edema Medications Medication Current Medications Docusate Sodium (Colace) 100 mg BID PO Last administered on 08/19/18at 09:07; Admin Dose 100 MG; Start 08/09/18 at 21:00 Senna (Senokot) 1 tab HS PO Last administered on 08/16/18at 20:50; Admin Dose 1 TAB; Start 08/09/18 at 21:00 Magnesium Hydroxide (Milk Of Mag) 30 ml BID PRN PO CONSTIPATION; Start 08/09/18 at 19:00 Lactulose (Enulose) 20 gm DAILY PRN PO CONSTIPATION; Start 08/09/18 at 19:00 Bisacodyl (Dulcolax Supp) 10 mg DAILY PRN [place] CONSTIPATION; Start 08/09/18 at 19:00 [facility]isc[facility] This patient mendoza... PRN PRN XX WOUND CARE; Start 08/09/18 at 19:00 Amiodarone HCl (Cordarone) 200 mg BID PO Last administered on 08/19/18 09:07; Admin Dose 200 MG; Start 08/09/18 at 21:00 Pantoprazole (Protonix Tab) 40 mg DAILY@06 PO Last administered on 08/19/18 06:42; Admin Dose 40 MG; Start 08/10/18 at 06:00 Lorazepam (Ativan) 1 mg HS PO Last administered on 08/18/18 21:13; Admin Dose 1 MG; Start 08/09/18 at 21:00 Escitalopram Oxalate (Lexapro) 20 mg DAILY PO Last administered on 08/19/18 09:07; Admin Dose 20 MG; Start 08/10/18 at 09:00 Folic Acid (Folic Acid) 1 mg DAILY PO Last administered on 08/19/18 09:07; Admin Dose 1 MG; Start 08/10/18 at 09:00 Lubiprostone (Amitiza) 24 mcg BID PO Last administered on 08/19/18 09:06; Admin Dose 24 MCG; Start 08/09/18 at 21:00 Metoprolol Succinate (Toprol Xl) 50 mg BID PO Last administered on 08/19/18 09:08; Admin Dose 50 MG; Start 08/09/18 at 21:00 Pramipexole (Mirapex) 0.5 mg BID PO Last administered on 08/19/18 09:06; Admin Dose 0.5 MG; Start 08/09/18 at 21:00 Magnesium Oxide (Mag-Ox 400) 400 mg DAILY PO Last administered on 08/19/18 09:06; Admin Dose 400 MG; Start 08/10/18 at 09:00 Carbidopa/Levodopa (Sinemet (25/ 100)) 1 tab QID PO Last administered on 08/19/18 12:23; Admin Dose 1 TAB; Start 08/09/18 at 21:00 Acetaminophen (Tylenol Tab) 650 mg Q8 PRN PO MODERATE PAIN LEVEL 4-6 Last administered on 08/10/18 15:18; Admin Dose 650 MG; Start 08/09/18 at 19:30 Apixaban (Eliquis) 2.5 mg BID PO Last administered on 08/19/18 09:07; Admin Dose 2.5 MG; Start 08/11/18 at 09:00 Tramadol HCl (Ultram) 50 mg Q4H PRN PO SEVERE PAIN LEVEL 7-10 Last administered on 08/18/18 16:18; Admin Dose 50 MG; Start 08/11/18 at 15:30 Nitrofurantoin Macrocrystals (Macrobid) 100 mg BID PO Last administered on 08/19/18 09:06; Admin Dose 100 MG; Start 08/12/18 at 21:00; Stop 08/19/18 at 20:59 Furosemide (Lasix) 20 mg BID PO Last administered on 08/19/18 09:06; Admin Dose 20 MG; Start 08/13/18 at 21:00 Lubiprostone (Amitiza) 8 mcg BID PRN PO constipation; Start 08/14/18 at 15:00 Clopidogrel Bisulfate (plaVIX) 75 mg DAILY PO Last administered on 08/19/18 09:06; Admin Dose 75 MG; Start 08/16/18 at 09:00 Nifedipine (Procardia Xl) 30 mg DAILY PO Last administered on 08/19/18 09:07; Admin Dose 30 MG; Start 08/19/18 at 09:00 CORI JON MD Aug 19, 2018 13:56
--- NOTE | 2018-08-19 17:13 | CONS ---
Assessment/Plan Assessment/Plan Hospital Course (Demo Recall) IMPRESSION: 1. Paroxysmal atrial fibrillation on amiodarone -in SR by ecg 08/11 2. Hypertension, mildly elevated. 3. Dyslipidemia, not on statin at this time. 4. Status post acute cerebrovascular accident, in rehab now. 5. Anemia. 6. Parkinson. 7. Psychiatric disorder. Recc: -Now on eliquis -Continue BB/amiodarone at current doses as tolerated -Continue sinemet -PT/OT -Follow volume status closely on lasix now BID Consultation Date/Type/Reason Admit Date/Time Aug 09, 2018 at 18:10 Initial Consult Date 08/10/18 Type of Consult Cardiology Reason for Consultation AF Requesting Provider: CORI JON MD Date/Time of Note DATE: 08/19/18 TIME: 17:11 Exam/Review of Systems Vital Signs Vitals Vital Signs Date Temp Pulse Resp B/P (MAP) Pulse Ox O2 O2 Flow FiO2 Time Delivery Rate 08/19/18 98.1 65 20 154/60 97 Room Air 08:00 (91) 08/16/18 2.0 08:00 Intake and Output 08/18/18 08/18/18 08/19/18 1515:00 23:00 07:00 IntakeIntake Total 800 ml 240 ml OutputOutput Total 400 ml 300 ml BalanceBalance 400 ml -60 ml Exam Exam Review of Systems: CONSTITUTIONAL: No fevers, chills. PULMONARY: No sob CARDIOVASCULAR: No chest pain/palpitations GASTROINTESTINAL: No nausea/vomiting. GENITOURINARY: No hematuria/dysuria. MUSCULOSKELETAL: No myagias/arthalgias. PSYCHIATRIC: The patient denies depression. NEUROLOGIC: No weakness Constitutional: alert Psych: no complaints Head: normocephalic ENMT: mucosa pink and moist Neck: supple, jvd (9 cm water) Respiratory: clear to auscultation Cardiovascular: irregular rhythm Gastrointestinal: soft, non-tender Musculoskeletal: muscle weakness (generalized) Extremities: edema (none) Neurological: other (No focal deficits) Labs Result Diagram: 08/16/1861108/16/18611 Medications Medications Current Medications Docusate Sodium (Colace) 100 mg BID PO Last administered on 08/19/18at 09:07; Admin Dose 100 MG; Start 08/09/18 at 21:00 Senna (Senokot) 1 tab HS PO Last administered on 08/16/18 20:50; Admin Dose 1 TAB; Start 08/09/18 at 21:00 Magnesium Hydroxide (Milk Of Mag) 30 ml BID PRN PO CONSTIPATION; Start 08/09/18 at 19:00 Lactulose (Enulose) 20 gm DAILY PRN PO CONSTIPATION; Start 08/09/18 at 19:00 Bisacodyl (Dulcolax Supp) 10 mg DAILY PRN [place] CONSTIPATION; Start 08/09/18 at 19:00 Miscellaneous Information (Pending Santyl Order For Wound Care) This patient mendoza... PRN PRN XX WOUND CARE; Start 08/09/18 at 19:00 Amiodarone HCl (Cordarone) 200 mg BID PO Last administered on 08/19/18 09:07; Admin Dose 200 MG; Start 08/09/18 at 21:00 Pantoprazole (Protonix Tab) 40 mg DAILY@06 PO Last administered on 08/19/18 06:42; Admin Dose 40 MG; Start 08/10/18 at 06:00 Lorazepam (Ativan) 1 mg HS PO Last administered on 08/18/18 21:13; Admin Dose 1 MG; Start 08/09/18 at 21:00 Escitalopram Oxalate (Lexapro) 20 mg DAILY PO Last administered on 08/19/18 09:07; Admin Dose 20 MG; Start 08/10/18 at 09:00 Folic Acid (Folic Acid) 1 mg DAILY PO Last administered on 08/19/18 09:07; Admin Dose 1 MG; Start 08/10/18 at 09:00 Lubiprostone (Amitiza) 24 mcg BID PO Last administered on 08/19/18 09:06; Admin Dose 24 MCG; Start 08/09/18 at 21:00 Metoprolol Succinate (Toprol Xl) 50 mg BID PO Last administered on 08/19/18 09:08; Admin Dose 50 MG; Start 08/09/18 at 21:00 Pramipexole (Mirapex) 0.5 mg BID PO Last administered on 08/19/18 09:06; Admin Dose 0.5 MG; Start 08/09/18 at 21:00 Magnesium Oxide (Mag-Ox 400) 400 mg DAILY PO Last administered on 08/19/18 09:06; Admin Dose 400 MG; Start 08/10/18 at 09:00 Carbidopa/Levodopa (Sinemet (25/ 100)) 1 tab QID PO Last administered on 08/19/18 12:23; Admin Dose 1 TAB; Start 08/09/18 at 21:00 Acetaminophen (Tylenol Tab) 650 mg Q8 PRN PO MODERATE PAIN LEVEL 4-6 Last administered on 08/10/18 15:18; Admin Dose 650 MG; Start 08/09/18 at 19:30 Apixaban (Eliquis) 2.5 mg BID PO Last administered on 08/19/18 09:07; Admin Dose 2.5 MG; Start 08/11/18 at 09:00 Tramadol HCl (Ultram) 50 mg Q4H PRN PO SEVERE PAIN LEVEL 7-10 Last administered on 08/18/18 16:18; Admin Dose 50 MG; Start 08/11/18 at 15:30 Nitrofurantoin Macrocrystals (Macrobid) 100 mg BID PO Last administered on 08/19/18 09:06; Admin Dose 100 MG; Start 08/12/18 at 21:00; Stop 08/19/18 at 20:59 Furosemide (Lasix) 20 mg BID PO Last administered on 08/19/18 09:06; Admin Dose 20 MG; Start 08/13/18 at 21:00 Lubiprostone (Amitiza) 8 mcg BID PRN PO constipation; Start 08/14/18 at 15:00 Clopidogrel Bisulfate (plaVIX) 75 mg DAILY PO Last administered on 08/19/18 09:06; Admin Dose 75 MG; Start 08/16/18 at 09:00 Nifedipine (Procardia Xl) 30 mg DAILY PO Last administered on 08/19/18 09:07; Admin Dose 30 MG; Start 08/19/18 at 09:00 BETTY CORDOBA Aug 19, 2018 17:13
[2018-08-19 19:33] VITALS: BP 119/58; PULSE 62; RESP 18
[2018-08-19] MEDS: SENNA TAB PO SCH (21:09)
[2018-08-19] MEDS: LORAZEPAM 0.5 MG TAB PO SCH (21:09)
[2018-08-20 02:35] VITALS: BP_SYST 117; BP_SYST 177; BP_DIAS 60; PULSE 68; PULSE 72; RESP 18
--- NOTE | 2018-08-20 03:17 | PN ---
DATE: 08/19/2018 PSYCHOLOGY -- INDIVIDUAL SESSION -- [id number] This is a followup on a patient who was seen last week. The patient was seen up in her wheelchair. The patient reports that she is feeling stronger and better. The patient is looking forward to being discharged and returning home. The patient still does have depression and anxiety, and tried to wor k on some of these issues and have the patient see that she has made progress while in the program. The patient was receptive. Dictated By: CHARLETTE BATISTA PHD YAEL/RYAN Conf#: [id number] DID#: [id number]
[2018-08-20] MEDS: PANTOPRAZOLE (EC) 40 MG TAB PO SCH (06:38)
[2018-08-20 07:00] VITALS: BP 117/59; PULSE 62; RESP 18
[2018-08-20] MEDS: LUBIPROSTONE 24 MCG CAP PO SCH ×2 (08:42→20:27)
[2018-08-20] MEDS: FUROSEMIDE 20 MG TAB PO SCH ×2 (08:42→20:28)
[2018-08-20] MEDS: ESCITALOPRAM 10 MG TAB PO SCH (08:42)
[2018-08-20] MEDS: FOLIC ACID 1 MG TAB PO SCH (08:42)
[2018-08-20] MEDS: CLOPIDOGREL 75 MG TAB PO SCH (08:43)
[2018-08-20] MEDS: PRAMIPEXOLE 0.25 MG TAB PO SCH ×2 (08:43→20:27)
[2018-08-20] MEDS: MAGNESIUM OXIDE 400 MG TAB PO SCH (08:43)
[2018-08-20] MEDS: DOCUSATE SODIUM 100 MG CAP PO SCH ×2 (08:43→20:26)
[2018-08-20] MEDS: AMIODARONE 200 MG TAB PO SCH ×2 (08:43→20:40)
[2018-08-20] MEDS: APIXABAN 5 MG TABLET PO SCH ×2 (08:44→20:24)
[2018-08-20] MEDS: CARBIDOPA/LEVODOPA (25/100) TAB PO SCH ×4 (08:44→20:26)
[2018-08-20] MEDS: METOPROLOL (XL) 50 MG TAB PO SCH ×2 (08:44→20:39)
[2018-08-20] MEDS: NIFEdipine (XL) 30 MG TAB PO SCH (08:45)
--- NOTE | 2018-08-20 12:42 | PN ---
Date/Time of Note Date/Time of Note DATE: 08/20/18 TIME: 12:42 Subjective Patient comfortable Objective Vital Signs Date Temp Pulse Resp B/P (MAP) Pulse Ox O2 O2 Flow FiO2 Time Delivery Rate 08/20/18 98.6 62 18 117/59 95 Room Air 07:00 (78) 08/16/18 2.0 08:00 Intake and Output 08/19/18 08/19/18 08/20/18 1515:00 23:00 07:00 IntakeIntake Total 200 ml 420 ml 240 ml OutputOutput Total 300 ml BalanceBalance 200 ml 420 ml -60 ml Exam pulm-cta abd-soft min/cga assist Results/Medications Result Diagram: 08/16/1861108/16/18611 Medications Current Medications Docusate Sodium (Colace) 100 mg BID PO Last administered on 08/20/18 08:43; Admin Dose 100 MG; Start 08/09/18 at 21:00 Senna (Senokot) 1 tab HS PO Last administered on 08/19/18 21:09; Admin Dose 1 TAB; Start 08/09/18 at 21:00 Magnesium Hydroxide (Milk Of Mag) 30 ml BID PRN PO CONSTIPATION; Start 08/09/18 at 19:00 Lactulose (Enulose) 20 gm DAILY PRN PO CONSTIPATION; Start 08/09/18 at 19:00 Bisacodyl (Dulcolax Supp) 10 mg DAILY PRN [place] CONSTIPATION; Start 08/09/18 at 19:00 Miscellaneous Information (Pending [facility] Order For Wound Care) This patient mendoza... PRN PRN XX WOUND CARE; Start 08/09/18 at 19:00 Amiodarone HCl (Cordarone) 200 mg BID PO Last administered on 08/20/18 08:43; Admin Dose 200 MG; Start 08/09/18 at 21:00 Pantoprazole (Protonix Tab) 40 mg DAILY@06 PO Last administered on 08/20/18 06:38; Admin Dose 40 MG; Start 08/10/18 at 06:00 Lorazepam (Ativan) 1 mg HS PO Last administered on 08/19/18 21:09; Admin Dose 1 MG; Start 08/09/18 at 21:00 Escitalopram Oxalate (Lexapro) 20 mg DAILY PO Last administered on 08/20/18 08:42; Admin Dose 20 MG; Start 08/10/18 at 09:00 Folic Acid (Folic Acid) 1 mg DAILY PO Last administered on 08/20/18 08:42; Admin Dose 1 MG; Start 08/10/18 at 09:00 Lubiprostone (Amitiza) 24 mcg BID PO Last administered on 08/20/18 08:42; Admin Dose 24 MCG; Start 08/09/18 at 21:00 Metoprolol Succinate (Toprol Xl) 50 mg BID PO Last administered on 08/20/18 08:44; Admin Dose 50 MG; Start 08/09/18 at 21:00 Pramipexole (Mirapex) 0.5 mg BID PO Last administered on 08/20/18 08:43; Admin Dose 0.5 MG; Start 08/09/18 at 21:00 Magnesium Oxide (Mag-Ox 400) 400 mg DAILY PO Last administered on 08/20/18 08:43; Admin Dose 400 MG; Start 08/10/18 at 09:00 Carbidopa/Levodopa (Sinemet (25/ 100)) 1 tab QID PO Last administered on 08/20/18 12:05; Admin Dose 1 TAB; Start 08/09/18 at 21:00 Acetaminophen (Tylenol Tab) 650 mg Q8 PRN PO MODERATE PAIN LEVEL 4-6 Last a dministered on 08/10/18 15:18; Admin Dose 650 MG; Start 08/09/18 at 19:30 Apixaban (Eliquis) 2.5 mg BID PO Last administered on 08/20/18 08:44; Admin Dose 2.5 MG; Start 08/11/18 at 09:00 Tramadol HCl (Ultram) 50 mg Q4H PRN PO SEVERE PAIN LEVEL 7-10 Last administered on 08/18/18 16:18; Admin Dose 50 MG; Start 08/11/18 at 15:30 Furosemide (Lasix) 20 mg BID PO Last administered on 08/20/18 08:42; Admin Dose 20 MG; Start 08/13/18 at 21:00 Lubiprostone (Amitiza) 8 mcg BID PRN PO constipation; Start 08/14/18 at 15:00 Clopidogrel Bisulfate (plaVIX) 75 mg DAILY PO Last administered on 4/25/19at 08:43; Admin Dose 75 MG; Start 08/16/18 at 09:00 Nifedipine (Procardia Xl) 30 mg DAILY PO Last administered on 08/20/18at 08:45; Admin Dose 30 MG; Start 08/19/18 at 09:00 Assessment/Plan Additional Assessment/Plan Rehab- 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 Good functional progress, continue treatment plan Hypertension. Dysphagia- improving History of atrial fibrillation. JAMES PYLE MD Aug 20, 2018 12:42
--- NOTE | 2018-08-20 13:51 | CONS ---
Assessment/Plan Assessment/Plan Hospital Course (Demo Recall) IMPRESSION: 1. Paroxysmal atrial fibrillation on amiodarone -in SR by ecg 08/11 2. Hypertension, mildly elevated. 3. Dyslipidemia, not on statin at this time. 4. Status post acute cerebrovascular accident, in rehab now. 5. Anemia. 6. Parkinson. 7. Psychiatric disorder. Recc: -Now on eliquis -Continue BB/amiodarone at current doses as tolerated -Continue sinemet -PT/OT -Follow volume status closely on lasix now BID Consultation Date/Type/Reason Admit Date/Time Aug 09, 2018 at 18:10 Initial Consult Date 08/10/18 Type of Consult Cardiology Reason for Consultation CHF Requesting Provider: CORI JON MD Date/Time of Note DATE: 08/20/18 TIME: 13:49 Exam/Review of Systems Vital Signs Vitals Vital Signs Date Temp Pulse Resp B/P (MAP) Pulse Ox O2 O2 Flow FiO2 Time Delivery Rate 08/20/18 98.6 62 18 117/59 95 Room Air 07:00 (78) 08/16/18 2.0 08:00 Intake and Output 08/19/18 08/19/18 08/20/18 1515:00 23:00 07:00 IntakeIntake Total 200 ml 420 ml 240 ml OutputOutput Total 300 ml BalanceBalance 200 ml 420 ml -60 ml Exam Exam Review of Systems: CONSTITUTIONAL: No fevers, chills. PULMONARY: No sob CARDIOVASCULAR: No chest pain/palpitations GASTROINTESTINAL: No nausea/vomiting. GENITOURINARY: No hematuria/dysuria. MUSCULOSKELETAL: No myagias/arthalgias. PSYCHIATRIC: The patient denies depression. NEUROLOGIC: mild generalized weakness Constitutional: alert Psych: no complaints Head: normocephalic ENMT: mucosa pink and moist Neck: supple, jvd (9 cm water) Respiratory: clear to auscultation Cardiovascular: regular rate and rhythm Gastrointestinal: soft, non-tender Musculoskeletal: muscle weakness (mild generalized) Extremities: edema (none) Neurological: other (No focal deficits) Labs Result Diagram: 08/16/1861108/16/18611 Medications Medications Current Medications Docusate Sodium (Colace) 100 mg BID PO Last administered on 08/20/18at 08:43; Admin Dose 100 MG; Start 08/09/18 at 21:00 Senna (Senokot) 1 tab HS PO Last administered on 08/19/18 21:09; Admin Dose 1 TAB; Start 08/09/18 at 21:00 Magnesium Hydroxide (Milk Of Mag) 30 ml BID PRN PO CONSTIPATION; Start 08/09/18 at 19:00 Lactulose (Enulose) 20 gm DAILY PRN PO CONSTIPATION; Start 08/09/18 at 19:00 Bisacodyl (Dulcolax Supp) 10 mg DAILY PRN [place] CONSTIPATION; Start 08/09/18 at 19:00 Miscellaneous Information (Pending [facility] Order For Wound Care) This patient mendoza... PRN PRN XX WOUND CARE; Start 08/09/18 at 19:00 Amiodarone HCl (Cordarone) 200 mg BID PO Last administered on 08/20/18 08:43; Admin Dose 200 MG; Start 08/09/18 at 21:00 Pantoprazole (Protonix Tab) 40 mg DAILY@06 PO Last administered on 08/20/18 06:38; Admin Dose 40 MG; Start 08/10/18 at 06:00 Lorazepam (Ativan) 1 mg HS PO Last administered on 08/19/18 21:09; Admin Dose 1 MG; Start 08/09/18 at 21:00 Escitalopram Oxalate (Lexapro) 20 mg DAILY PO Last administered on 08/20/18 08:42; Admin Dose 20 MG; Start 08/10/18 at 09:00 Folic Acid (Folic Acid) 1 mg DAILY PO Last administered on 08/20/18 08:42; Admin Dose 1 MG; Start 08/10/18 at 09:00 Lubiprostone (Amitiza) 24 mcg BID PO Last administered on 08/20/18 08:42; Admin Dose 24 MCG; Start 08/09/18 at 21:00 Metoprolol Succinate (Toprol Xl) 50 mg BID PO Last administered on 08/20/18 08:44; Admin Dose 50 MG; Start 08/09/18 at 21:00 Pramipexole (Mirapex) 0.5 mg BID PO Last administered on 08/20/18 08:43; Admin Dose 0.5 MG; Start 08/09/18 at 21:00 Magnesium Oxide (Mag-Ox 400) 400 mg DAILY PO Last administered on 08/20/18 08:43; Admin Dose 400 MG; Start 08/10/18 at 09:00 Carbidopa/Levodopa (Sinemet (/ )) 1 tab QID PO Last administered on 08/20/18 12:05; Admin Dose 1 TAB; Start 08/09/18 at 21:00 Acetaminophen (Tylenol Tab) 650 mg Q8 PRN PO MODERATE PAIN LEVEL 4-6 Last administered on 08/10/18 15:18; Admin Dose 650 MG; Start 08/09/18 at 19:30 Apixaban (Eliquis) 2.5 mg BID PO Last administered on 08/20/18 08:44; Admin Dose 2.5 MG; Start 08/11/18 at 09:00 Tramadol HCl (Ultram) 50 mg Q4H PRN PO SEVERE PAIN LEVEL 7-10 Last administered on 08/18/18 16:18; Admin Dose 50 MG; Start 08/11/18 at 15:30 Furosemide (Lasix) 20 mg BID PO Last administered on 08/20/18 08:42; Admin Dose 20 MG; Start 08/13/18 at 21:00 Lubiprostone (Amitiza) 8 mcg BID PRN PO constipation; Start 08/14/18 at 15:00 Clopidogrel Bisulfate (plaVIX) 75 mg DAILY PO Last administered on 08/20/18 08:43; Admin Dose 75 MG; Start 08/16/18 at 09:00 Nifedipine (Procardia Xl) 30 mg DAILY PO Last administered on 08/20/18 08:45; Admin Dose 30 MG; Start 08/19/18 at 09:00 BETTY CORDBOA Aug 20, 2018 13:50
[2018-08-20 14:00] VITALS: BP_SYST 122; BP_SYST 130; BP_DIAS 58; BP_DIAS 60; PULSE 60; PULSE 72; RESP 18
--- NOTE | 2018-08-20 17:00 | PN ---
Date/Time of Note Date/Time of Note DATE: 08/20/18 TIME: 16:59 Assessment/Plan VTE [place]axis [place] [facility] [place]: 4 [place]CD [place] [facility] [place] Yes Pharmacological prophylaxis: NA/contraindicated Pharm contraindication: low risk/ambulating Lines/Catheters Urinary Cath still in place: No Assessment/Plan Hospital Course 82-year-old female with: 1. 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 2. Hypertension. 3. Hyperlipidemia. 4. Parkinson disease. 5. Chronic atrial fibrillation. 6 UTI ecoli resistant to cipro Plan -Continue with Plavix - s/p abx - cw nifedipine 30 -cw on Eliquis per cardiology for A. fib -Continue with statin - cw nifedipine/MTP/ Lasix now twice daily/amiodarone continue with Sinemet -Follow with neuro and cardiac recs -PT/OT -stool Softeners Result Diagram: 08/16/1812 08/16/18 0612 Subjective 24 Hr Interval Summary Free Text/Dictation constipated Exam/Review of Systems Exam Vitals Vital Signs Date Temp Pulse Resp B/P (MAP) Pulse Ox O2 O2 Flow FiO2 Time Delivery Rate 08/20/18 98.3 60 18 122/60 97 Room Air 14:00 (80) 08/16/18 2.0 08:00 Intake and Output 08/19/18 08/19/18 08/20/18 1515:00 23:00 07:00 IntakeIntake Total 200 ml 420 ml 240 ml OutputOutput Total 300 ml BalanceBalance 200 ml 420 ml -60 ml Exam Exam Constitutional: alert, oriented Neck: supple Respiratory: clear to auscultation Cardiovascular: regular rate and rhythm Gastrointestinal: soft edema Medications Medication Current Medications Docusate Sodium (Colace) 100 mg BID PO Last administered on 08/20/18at 08:43; Admin Dose 100 MG; Start 08/09/18 at 21:00 Senna (Senokot) 1 tab HS PO Last administered on 08/19/18at 21:09; Admin Dose 1 TAB; Start 08/09/18 at 21:00 Magnesium Hydroxide (Milk Of Mag) 30 ml BID PRN PO CONSTIPATION; Start 08/09/18 at 19:00 Lactulose (Enulose) 20 gm DAILY PRN PO CONSTIPATION; Start 08/09/18 at 19:00 Bisacodyl (Dulcolax Supp) 10 mg DAILY PRN [place] CONSTIPATION; Start 08/09/18 at 19:00 Miscellaneous Information (Pending [facility] Order For Wound Care) This patient mendoza... PRN PRN XX WOUND CARE; Start 08/09/18 at 19:00 Amiodarone HCl (Cordarone) 200 mg BID PO Last administered on 08/20/18 08:43; Admin Dose 200 MG; Start 08/09/18 at 21:00 Pantoprazole (Protonix Tab) 40 mg DAILY@06 PO Last administered on 08/20/18 06:38; Admin Dose 40 MG; Start 08/10/18 at 06:00 Lorazepam (Ativan) 1 mg HS PO Last administered on 08/19/18 21:09; Admin Dose 1 MG; Start 08/09/18 at 21:00 Escitalopram Oxalate (Lexapro) 20 mg DAILY PO Last administered on 08/20/18 08:42; Admin Dose 20 MG; Start 08/10/18 at 09:00 Folic Acid (Folic Acid) 1 mg DAILY PO Last administered on 08/20/18 08:42; Admin Dose 1 MG; Start 08/10/18 at 09:00 Lubiprostone (Amitiza) 24 mcg BID PO Last administered on 08/20/18 08:42; Admin Dose 24 MCG; Start 08/09/18 at 21:00 Metoprolol Succinate (Toprol Xl) 50 mg BID PO Last administered on 08/20/18 08:44; Admin Dose 50 MG; Start 08/09/18 at 21:00 Pramipexole (Mirapex) 0.5 mg BID PO Last administered on 08/20/18 08:43; Admin Dose 0.5 MG; Start 08/09/18 at 21:00 Magnesium Oxide (Mag-Ox 400) 400 mg DAILY PO Last administered on 08/20/18 08:43; Admin Dose 400 MG; Start 08/10/18 at 09:00 Carbidopa/Levodopa (Sinemet (25/ 100)) 1 tab QID PO Last administered on 08/20/18 12:05; Admin Dose 1 TAB; Start 08/09/18 at 21:00 Acetaminophen (Tylenol Tab) 650 mg Q8 PRN PO MODERATE PAIN LEVEL 4-6 Last administered on 08/10/18 15:18; Admin Dose 650 MG; Start 08/09/18 at 19:30 Apixaban (Eliquis) 2.5 mg BID PO Last administered on 08/20/18 08:44; Admin Dose 2.5 MG; Start 08/11/18 at 09:00 Tramadol HCl (Ultram) 50 mg Q4H PRN PO SEVERE PAIN LEVEL 7-10 Last administered on 08/18/18 16:18; Admin Dose 50 MG; Start 08/11/18 at 15:30 Furosemide (Lasix) 20 mg BID PO Last administered on 08/20/18 08:42; Admin Dose 20 MG; Start 08/13/18 at 21:00 Lubiprostone (Amitiza) 8 mcg BID PRN PO constipation; Start 08/14/18 at 15:00 Clopidogrel Bisulfate (plaVIX) 75 mg DAILY PO Last administered on 08/20/18 08:43; Admin Dose 75 MG; Start 08/16/18 at 09:00 Nifedipine (Procardia Xl) 30 mg DAILY PO Last administered on 08/20/18 08:45; Admin Dose 30 MG; Start 08/19/18 at 09:00 CORI JON MD Aug 20, 2018 17:00
[2018-08-20 20:24] VITALS: BP 136/61; PULSE 55; RESP 18
[2018-08-20] MEDS: LORAZEPAM 0.5 MG TAB PO SCH (20:28)
[2018-08-20] MEDS: SENNA TAB PO SCH (20:40)
[2018-08-21 02:10] VITALS: BP 107/59; PULSE 56; RESP 18
[2018-08-21] MEDS: PANTOPRAZOLE (EC) 40 MG TAB PO SCH (06:21)
[2018-08-21 07:30] VITALS: BP 127/52; PULSE 56; RESP 18
[2018-08-21] MEDS: FUROSEMIDE 20 MG TAB PO SCH ×2 (08:26→20:19)
[2018-08-21] MEDS: AMIODARONE 200 MG TAB PO SCH ×2 (08:27→20:20)
[2018-08-21] MEDS: MAGNESIUM OXIDE 400 MG TAB PO SCH (08:27)
[2018-08-21] MEDS: LUBIPROSTONE 24 MCG CAP PO SCH ×2 (08:27→20:23)
[2018-08-21] MEDS: APIXABAN 5 MG TABLET PO SCH ×2 (08:28→20:19)
[2018-08-21] MEDS: FOLIC ACID 1 MG TAB PO SCH (08:28)
[2018-08-21] MEDS: ESCITALOPRAM 10 MG TAB PO SCH (08:28)
[2018-08-21] MEDS: CLOPIDOGREL 75 MG TAB PO SCH (08:29)
[2018-08-21] MEDS: PRAMIPEXOLE 0.25 MG TAB PO SCH ×2 (08:29→20:19)
[2018-08-21] MEDS: CARBIDOPA/LEVODOPA (25/100) TAB PO SCH ×4 (08:29→20:18)
[2018-08-21] MEDS: NIFEdipine (XL) 30 MG TAB PO SCH (08:29)
[2018-08-21] MEDS: DOCUSATE SODIUM 100 MG CAP PO SCH ×2 (08:30→20:19)
[2018-08-21] MEDS: METOPROLOL (XL) 50 MG TAB PO SCH (08:30)
--- NOTE | 2018-08-21 13:32 | PN ---
Date/Time of Note Date/Time of Note DATE: 08/21/18 TIME: 13:31 Subjective Comfortable Objective Vital Signs Date Temp Pulse Resp B/P (MAP) Pulse Ox O2 O2 Flow FiO2 Time Delivery Rate 08/21/18 97.7 56 18 127/52 99 Room Air 07:30 (77) Intake and Output 08/20/18 08/20/18 08/21/18 1515:00 23:00 07:00 IntakeIntake Total 700 ml 2200 ml 120 ml OutputOutput Total 1000 ml 250 ml BalanceBalance 700 ml 1200 ml -130 ml Exam pulm-cta min/cga assist Results/Medications Medications Current Medications Docusate Sodium (Colace) 100 mg BID PO Last administered on 08/21/18 08:30; Admin Dose 100 MG; Start 08/09/18 at 21:00 Senna (Senokot) 1 tab HS PO Last administered on 08/19/18 21:09; Admin Dose 1 TAB; Start 08/09/18 at 21:00 Magnesium Hydroxide (Milk Of Mag) 30 ml BID PRN PO CONSTIPATION Last administered on 08/21/18 08:24; Admin Dose 30 ML; Start 08/09/18 at 19:00 Lactulose (Enulose) 20 gm DAILY PRN PO CONSTIPATION; Start 08/09/18 at 19:00 Bisacodyl (Dulcolax Supp) 10 mg DAILY PRN [place] CONSTIPATION; Start 08/09/18 at 19:00 Miscellaneous Information (Pending [facility] Order For Wound Care) This patient mendoza... PRN PRN XX WOUND CARE; Start 08/09/18 at 19:00 Amiodarone HCl (Cordarone) 200 mg BID PO Last administered on 08/20/18 08:43; Admin Dose 200 MG; Start 08/09/18 at 21:00 Pantoprazole (Protonix Tab) 40 mg DAILY@06 PO Last administered on 08/21/18 06:21; Admin Dose 40 MG; Start 08/10/18 at 06:00 Lorazepam (Ativan) 1 mg HS PO Last administered on 08/20/18 20:28; Admin Dose 1 MG; Start 08/09/18 at 21:00 Escitalopram Oxalate (Lexapro) 20 mg DAILY PO Last administered on 08/21/18 08:28; Admin Dose 20 MG; Start 08/10/18 at 09:00 Folic Acid (Folic Acid) 1 mg DAILY PO Last administered on 08/21/18 08:28; Admin Dose 1 MG; Start 08/10/18 at 09:00 Lubiprostone (Amitiza) 24 mcg BID PO Last administered on 08/21/18 08:27; Admin Dose 24 MCG; Start 08/09/18 at 21:00 Metoprolol Succinate (Toprol Xl) 50 mg BID PO Last administered on 08/20/18 08:44; Admin Dose 50 MG; Start 08/09/18 at 21:00 Pramipexole (Mirapex) 0.5 mg BID PO Last administered on 08/21/18 08:29; Admin Dose 0.5 MG; Start 08/09/18 at 21:00 Magnesium Oxide (Mag-Ox 400) 400 mg DAILY PO Last administered on 08/21/18 08:27; Admin Dose 400 MG; Start 08/10/18 at 09:00 Carbidopa/Levodopa (Sinemet (25/ )) 1 tab QID PO Last administered on 08/21/18 12:01; Admin Dose 1 TAB; Start 08/09/18 at 21:00 Acetaminophen (Tylenol Tab) 650 mg Q8 PRN PO MODERATE PAIN LEVEL 4-6 Last administered on 08/10/18 15:18; Admin Dose 650 MG; Start 08/09/18 at 19:30 Apixaban (Eliquis) 2.5 mg BID PO Last administered on 08/21/18 08:28; Admin Dose 2.5 MG; Start 08/11/18 at 09:00 Tramadol HCl (Ultram) 50 mg Q4H PRN PO SEVERE PAIN LEVEL 7-10 Last administered on 08/18/18 16:18; Admin Dose 50 MG; Start 08/11/18 at 15:30 Furosemide (Lasix) 20 mg BID PO Last administered on 08/21/18 08:26; Admin Dose 20 MG; Start 08/13/18 at 21:00 Lubiprostone (Amitiza) 8 mcg BID PRN PO constipation; Start 08/14/18 at 15:00 Clopidogrel Bisulfate (plaVIX) 75 mg DAILY PO Last administered on 08/21/18 08:29; Admin Dose 75 MG; Start 08/16/18 at 09:00 Nifedipine (Procardia Xl) 30 mg DAILY PO Last administered on 08/21/18at 08:29; Admin Dose 30 MG; Start 08/19/18 at 09:00 Assessment/Plan Additional Assessment/Plan Rehab- 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 continue rehab treatment plan Hypertension. Dysphagia- improving History of atrial fibrillation. JAMES PYLE MD Aug 21, 2018 13:32
[2018-08-21 14:00] VITALS: BP 109/59; PULSE 65; RESP 18
--- NOTE | 2018-08-21 15:53 | CONS ---
Assessment/Plan Assessment/Plan Hospital Course (Demo Recall) IMPRESSION: 1. Paroxysmal atrial fibrillation on amiodarone -in SR by ecg 08/11 2. Hypertension, mildly elevated. 3. Dyslipidemia, not on statin at this time. 4. Status post acute cerebrovascular accident, in rehab now. 5. Anemia. 6. Parkinson. 7. Psychiatric disorder. Recc: -Now on eliquis -Continue amiodarone at current doses as tolerated and will decrease dose of BB to allow patient to better tolerate -Now started on procardia XL as well follow BP closely as some what marginal today and had BB held -Continue sinemet -PT/OT -Follow volume status closely on lasix now BID Consultation Date/Type/Reason Admit Date/Time Aug 09, 2018 at 18:10 Initial Consult Date 08/10/18 Type of Consult Cardiology Reason for Consultation AF Requesting Provider: CORI JON MD Date/Time of Note DATE: 08/21/18 TIME: 15:50 Exam/Review of Systems Vital Signs Vitals Vital Signs Date Temp Pulse Resp B/P (MAP) Pulse Ox O2 O2 Flow FiO2 Time Delivery Rate 08/21/18 98.0 65 18 109/59 95 Room Air 14:00 (76) Intake and Output 08/20/18 08/20/18 08/21/18 1515:00 23:00 07:00 IntakeIntake Total 700 ml 2200 ml 120 ml OutputOutput Total 1000 ml 250 ml BalanceBalance 700 ml 1200 ml -130 ml Exam Exam Review of Systems: CONSTITUTIONAL: No fevers, chills. PULMONARY: No sob CARDIOVASCULAR: No chest pain/palpitations GASTROINTESTINAL: No nausea/vomiting. GENITOURINARY: No hematuria/dysuria. MUSCULOSKELETAL: No myagias/arthalgias. PSYCHIATRIC: The patient denies depression. NEUROLOGIC: mild generalized weakness Constitutional: alert Psych: no complaints Head: normocephalic ENMT: mucosa pink and moist Neck: supple, jvd (9 cm water) Respiratory: diminished breath sounds Cardiovascular: other (bradycardic, regular rhythm) Gastrointestinal: soft, non-tender Musculoskeletal: muscle weakness (mild generalized) Extremities: pitting pedal edema (bilateral) Medications Medications Current Medications Docusate Sodium (Colace) 100 mg BID PO Last administered on 08/21/18at 08:30; Admin Dose 100 MG; Start 08/09/18 at 21:00 Senna (Senokot) 1 tab HS PO Last administered on 08/19/18 21:09; Admin Dose 1 TAB; Start 08/09/18 at 21:00 Magnesium Hydroxide (Milk Of Mag) 30 ml BID PRN PO CONSTIPATION Last administered on 08/21/18 08:24; Admin Dose 30 ML; Start 08/09/18 at 19:00 Lactulose (Enulose) 20 gm DAILY PRN PO CONSTIPATION; Start 08/09/18 at 19:00 Bisacodyl (Dulcolax Supp) 10 mg DAILY PRN [place] CONSTIPATION; Start 08/09/18 at 19:00 Miscellaneous Information (Pending [facility] Order For Wound Care) This patient mendoza... PRN PRN XX WOUND CARE; Start 08/09/18 at 19:00 Amiodarone HCl (Cordarone) 200 mg BID PO Last administered on 08/20/18 08:43; Admin Dose 200 MG; Start 08/09/18 at 21:00 Pantoprazole (Protonix Tab) 40 mg DAILY@06 PO Last administered on 08/21/18 06:21; Admin Dose 40 MG; Start 08/10/18 at 06:00 Lorazepam (Ativan) 1 mg HS PO Last administered on 08/20/18 20:28; Admin Dose 1 MG; Start 08/09/18 at 21:00 Escitalopram Oxalate (Lexapro) 20 mg DAILY PO Last administered on 08/21/18 08:28; Admin Dose 20 MG; Start 08/10/18 at 09:00 Folic Acid (Folic Acid) 1 mg DAILY PO Last administered on 08/21/18 08:28; Admin Dose 1 MG; Start 08/10/18 at 09:00 Lubiprostone (Amitiza) 24 mcg BID PO Last administered on 08/21/18 08:27; Admin Dose 24 MCG; Start 08/09/18 at 21:00 Metoprolol Succinate (Toprol Xl) 50 mg BID PO Last administered on 08/20/18 08:44; Admin Dose 50 MG; Start 08/09/18 at 21:00 Pramipexole (Mirapex) 0.5 mg BID PO Last administered on 08/21/18 08:29; Admin Dose 0.5 MG; Start 08/09/18 at 21:00 Magnesium Oxide (Mag-Ox 400) 400 mg DAILY PO Last administered on 08/21/18 08:27; Admin Dose 400 MG; Start 08/10/18 at 09:00 Carbidopa/Levodopa (Sinemet (/ )) 1 tab QID PO Last administered on 08/21/18 12:01; Admin Dose 1 TAB; Start 08/09/18 at 21:00 Acetaminophen (Tylenol Tab) 650 mg Q8 PRN PO MODERATE PAIN LEVEL 4-6 Last administered on 08/10/18 15:18; Admin Dose 650 MG; Start 08/09/18 at 19:30 Apixaban (Eliquis) 2.5 mg BID PO Last administered on 08/21/18 08:28; Admin Dose 2.5 MG; Start 08/11/18 at 09:00 Tramadol HCl (Ultram) 50 mg Q4H PRN PO SEVERE PAIN LEVEL 7-10 Last administered on 08/18/18 16:18; Admin Dose 50 MG; Start 08/11/18 at 15:30 Furosemide (Lasix) 20 mg BID PO Last administered on 08/21/18 08:26; Admin Dose 20 MG; Start 08/13/18 at 21:00 Lubiprostone (Amitiza) 8 mcg BID PRN PO constipation; Start 08/14/18 at 15:00 Clopidogrel Bisulfate (plaVIX) 75 mg DAILY PO Last administered on 08/21/18 08:29; Admin Dose 75 MG; Start 08/16/18 at 09:00 Nifedipine (Procardia Xl) 30 mg DAILY PO Last administered on 08/21/18 08:29; Admin Dose 30 MG; Start 08/19/18 at 09:00 BETTY CORDOBA Aug 21, 2018 15:53
--- NOTE | 2018-08-21 16:49 | PN ---
Date/Time of Note Date/Time of Note DATE: 08/21/18 TIME: 16:49 Assessment/Plan VTE Prophylaxis Risk score (from [facility] [place])>0 risk: 4 SCD applied (from [facility] [place]): Yes Pharmacological prophylaxis: apixaban Lines/Catheters Urinary Cath still in place: No Assessment/Plan Hospital Course 1. 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 2. Hypertension. 3. Hyperlipidemia. 4. Parkinson disease. 5. Chronic atrial fibrillation. 6 UTI e.coli resistant to cipro Assessment/Plan -c/w PT /OT DVT proph. Eliquiz BID GI proph Protonix -cardiac consult dr Nelli mckenzie current regime Subjective 24 Hr Interval Summary Constitutional: no complaints, improved Exam/Review of Systems Exam Vitals Vital Signs Date Temp Pulse Resp B/P (MAP) Pulse Ox O2 O2 Flow FiO2 Time Delivery Rate 08/21/18 98.0 65 18 109/59 95 Room Air 14:00 (76) Intake and Output 08/20/18 08/20/18 08/21/18 1515:00 23:00 07:00 IntakeIntake Total 700 ml 2200 ml 120 ml OutputOutput Total 1000 ml 250 ml BalanceBalance 700 ml 1200 ml -130 ml Constitutional: alert, oriented Respiratory: clear to auscultation Cardiovascular: regular rate and rhythm Gastrointestinal: soft Medications Medication Current Medications Docusate Sodium (Colace) 100 mg BID PO Last administered on 08/21/18at 08:30; Admin Dose 100 MG; Start 08/09/18 at 21:00 Senna (Senokot) 1 tab HS PO Last administered on 08/19/18at 21:09; Admin Dose 1 TAB; Start 08/09/18 at 21:00 Magnesium Hydroxide (Milk Of Mag) 30 ml BID PRN PO CONSTIPATION Last administered on 08/21/18at 08:24; Admin Dose 30 ML; Start 08/09/18 at 19:00 Lactulose (Enulose) 20 gm DAILY PRN PO CONSTIPATION; Start 08/09/18 at 19:00 Bisacodyl (Dulcolax Supp) 10 mg DAILY PRN [place] CONSTIPATION; Start 08/09/18 at 19:00 [facility]isc[facility] This patient mendoza... PRN PRN XX WOUND CARE; Start 08/09/18 at 19:00 Amiodarone HCl (Cordarone) 200 mg BID PO Last administered on 08/20/18 08:43; Admin Dose 200 MG; Start 08/09/18 at 21:00 Pantoprazole (Protonix Tab) 40 mg DAILY@06 PO Last administered on 08/21/18 06:21; Admin Dose 40 MG; Start 08/10/18 at 06:00 Lorazepam (Ativan) 1 mg HS PO Last administered on 08/20/18 20:28; Admin Dose 1 MG; Start 08/09/18 at 21:00 Escitalopram Oxalate (Lexapro) 20 mg DAILY PO Last administered on 08/21/18 08:28; Admin Dose 20 MG; Start 08/10/18 at 09:00 Folic Acid (Folic Acid) 1 mg DAILY PO Last administered on 08/21/18 08:28; Admin Dose 1 MG; Start 08/10/18 at 09:00 Lubiprostone (Amitiza) 24 mcg BID PO Last administered on 08/21/18 08:27; Admin Dose 24 MCG; Start 08/09/18 at 21:00 Pramipexole (Mirapex) 0.5 mg BID PO Last administered on 08/21/18 08:29; Admin Dose 0.5 MG; Start 08/09/18 at 21:00 Magnesium Oxide (Mag-Ox 400) 400 mg DAILY PO Last administered on 08/21/18 08:27; Admin Dose 400 MG; Start 08/10/18 at 09:00 Carbidopa/Levodopa (Sinemet (25/ 100)) 1 tab QID PO Last administered on 08/21/18 12:01; Admin Dose 1 TAB; Start 08/09/18 at 21:00 Acetaminophen (Tylenol Tab) 650 mg Q8 PRN PO MODERATE PAIN LEVEL 4-6 Last administered on 08/10/18 15:18; Admin Dose 650 MG; Start 08/09/18 at 19:30 Apixaban (Eliquis) 2.5 mg BID PO Last administered on 08/21/18 08:28; Admin Dose 2.5 MG; Start 08/11/18 at 09:00 Tramadol HCl (Ultram) 50 mg Q4H PRN PO SEVERE PAIN LEVEL 7-10 Last administered on 08/18/18 16:18; Admin Dose 50 MG; Start 08/11/18 at 15:30 Furosemide (Lasix) 20 mg BID PO Last administered on 08/21/18 08:26; Admin Dose 20 MG; Start 08/13/18 at 21:00 Lubiprostone (Amitiza) 8 mcg BID PRN PO constipation; Start 08/14/18 at 15:00 Clopidogrel Bisulfate (plaVIX) 75 mg DAILY PO Last administered on 08/21/18at 08:29; Admin Dose 75 MG; Start 08/16/18 at 09:00 Nifedipine (Procardia Xl) 30 mg DAILY PO Last administered on 08/21/18 08:29; Admin Dose 30 MG; Start 08/19/18 at 09:00 Metoprolol Succinate (Toprol Xl) 25 mg BID PO ; Start 08/21/18 at 21:00 JUSTIN NAVARRO Aug 21, 2018 16:49
[2018-08-21] MEDS: LORAZEPAM 0.5 MG TAB PO SCH (20:19)
[2018-08-21 20:20] VITALS: BP 108/57; PULSE 60; RESP 18
--- NOTE | 2018-08-21 20:27 | CONS ---
DATE OF ADMISSION: 08/09/2018 DATE OF CONSULTATION: HISTORY OF PRESENT ILLNESS: The patient is 82 years old with history of atrial fibrillation and stro ke, in which the patient is on Eliquis, hypertension, dyslipidemia, anemia, parkinsonism, gait diffic ulty. The patient is under acute rehabilitation. CURRENT MEDICATIONS: Include: 1. Toprol-XL 25 mg once a day. 2. Procardia-XL 30 mg once a day. 3. Amitiza 8 mcg twice a day. 4. Lasix 20 mg twice a day. 5. Ultram 50 mg every 8 hours. 6. Eliquis 2.5 mg twice a day. 7. Lexapro 20 mg once a day. 8. Folic acid 1 mg once a day. 9. Protonix 40 mg once a day. 10. Colace 100 mg twice a day. 11. Amiodarone 200 mg twice a day. 12. Ativan 1 mg at night. 13. 24 mcg twice a day. 14. Mirapex 0.2 mg twice a day. 15. Sinemet 25/100 mg 4 times a day. 16. Tylenol 650 mg as needed. 17. Milk of Magnesia 30 mL once a day. PHYSICAL EXAMINATION: GENERAL: Today, the patient is alert, awake, oriented, following simple commands. CRANIAL NERVES: Cranial nerve II: Pupils are equal on both sides, reactive to light. Cranial nerve s III, IV and : Extraocular muscles are intact without nystagmus. Cranial nerve V: Equal sensati on to face. Cranial nerve VII: Symmetrical face. Cranial nerve VIII: Decreased hearing bilaterall y. Cranial nerve IX and X: Elevates palate. Cranial nerve XI: Elevates shoulder 5/5. Cranial ner ve XII: With straight tongue. MOTOR: Right side is 4+/5. Sensation decreased on the right side for light touch and temperature. COORDINATION: [id number] test is intact. HEART: Regular rate and rhythm. LUNGS: Equal breath sounds. ABDOMEN: Soft, relaxed, nondistended, no tenderness. ASSESSMENT AND PLAN: 1. The patient is status post acute lacunar infarction. Continue the patient's Eliquis twice a day. 2. History of atrial fibrillation, in which the patient is on Eliquis, which is good for stroke prop hylaxis. 3. History of parkinsonism. Keep the patient on Sinemet 100/25 mg 4 times a day as well as Mirapex twice a day. 4. Gait difficulty. Continue the patient with physical therapy and occupational therapy. 5. Keep the patient under deep venous thrombosis prophylaxis and decubitus ulcer prophylaxis. Again, thank you for asking me to see the patient with you. Dictated By: COLIN LOW MD NA/NTS Conf#: [id number] DID#: [id number] CC: BETTY CORDOBA MD; CORI OJN; JAMES PYLE MD;*EndCC*
[2018-08-21] MEDS: SENNA TAB PO SCH (21:00)
[2018-08-21] MEDS: METOPROLOL (XL) 25 MG TAB PO SCH (21:00)
[2018-08-22 04:17] VITALS: BP 126/62; PULSE 64; RESP 20
[2018-08-22] MEDS: PANTOPRAZOLE (EC) 40 MG TAB PO SCH (06:07)
[2018-08-22 08:00] VITALS: BP 124/59; PULSE 61; RESP 16
[2018-08-22] MEDS: DOCUSATE SODIUM 100 MG CAP PO SCH ×2 (08:16→21:00)
[2018-08-22] MEDS: CARBIDOPA/LEVODOPA (25/100) TAB PO SCH ×4 (08:16→20:38)
[2018-08-22] MEDS: APIXABAN 5 MG TABLET PO SCH ×2 (08:16→20:41)
[2018-08-22] MEDS: traMADol 50 MG TAB PO PRN ×3 (08:17→17:49)
[2018-08-22] MEDS: METOPROLOL (XL) 25 MG TAB PO SCH ×2 (09:00→20:39)
[2018-08-22] MEDS: NIFEdipine (XL) 30 MG TAB PO SCH (09:00)
[2018-08-22] MEDS: LUBIPROSTONE 24 MCG CAP PO SCH ×2 (09:15→20:41)
[2018-08-22] MEDS: PRAMIPEXOLE 0.25 MG TAB PO SCH ×2 (09:15→20:39)
[2018-08-22] MEDS: ESCITALOPRAM 10 MG TAB PO SCH (09:16)
[2018-08-22] MEDS: AMIODARONE 200 MG TAB PO SCH ×2 (09:19→20:40)
[2018-08-22] MEDS: FUROSEMIDE 20 MG TAB PO SCH ×2 (09:20→20:40)
[2018-08-22] MEDS: FOLIC ACID 1 MG TAB PO SCH (09:21)
[2018-08-22] MEDS: MAGNESIUM OXIDE 400 MG TAB PO SCH (09:23)
--- NOTE | 2018-08-22 11:16 | CONS ---
Consult Date/Type/Reason Admit Date/Time Aug 09, 2018 at 18:10 Initial Consult Date Requesting Provider: CORI JON MD Date/Time of Note DATE: 08/22/18 TIME: 11:15 Subjective NO acute events - pt comfortable - no CP now - in good fluid status - BP controlled. ROS: No fever, no chills, no nausea, no vomiting, no diarrhea/constipation No recent weight changes No chest pain, no PND, no orthopnea - mild SOB No dizziness, blurred vision No thirst, no heat or cold intolerance Objective Vitals Vital Signs Date Temp Pulse Resp B/P (MAP) Pulse Ox O2 O2 Flow FiO2 Time Delivery Rate 08/22/18 97.7 61 16 124/59 97 Room Air 08:00 (80) Intake and Output 08/21/18 08/21/18 08/22/18 1515:00 23:00 07:00 IntakeIntake Total 1650 ml 200 ml OutputOutput Total 450 ml BalanceBalance 1650 ml -250 ml Exam General: WN/WD/NAD, AOx 3 HEENT: Unicetric/atraumatic/EOMI (follows commands) NECK: JVD elevated, no thyromegaly Lymph: no lymphadenopathy HEART: regular with no S3, II/ systolic murmur at apex LUNGS: Coarse sounds ABD: soft, NT, ND, +BS : Intact Neuro: non focal SKIN: chronic changes EXT: trace edema Results/Medications Result Diagram: 08/22/18 0607 Results 24 hrs Laboratory Tests Test 08/22/18 04:30 08/22/18 06:07 Urine Color YELLOW Urine Clarity CLOUDY A Urine pH 7.0 Urine Specific [place] 1.017 Urine Ketones TRACE A Urine Nitrite NEGATIVE Urine Bilirubin NEGATIVE Urine Urobilinogen 1+ H Urine Leukocyte Esterase 3+ H Urine Microscopic RBC 2 Urine Microscopic WBC 27 H Urine Squamous Epithelial Cells FEW Urine Amorphous Crystals FEW A Urine Bacteria FEW A Urine Mucus MODERATE Urine Hemoglobin 1+ H Urine Glucose NEGATIVE Urine Total Protein NEGATIVE White Blood Count 4.9 Red Blood Count 3.68 L Hemoglobin 9.3 L Hematocrit 30.3 L Mean Corpuscular Volume 82.3 Mean Corpuscular Hemoglobin 25.3 L Mean Corpuscular Hemoglobin Concent 30.7 L Red Cell Distribution Width 15.9 H Platelet Count 341 Mean Platelet Volume 9.3 Immature Granulocytes % 0.200 Neutrophils % 33.7 L Lymphocytes % 54.5 H Monocytes % 9.2 Eosinophils % 1.8 Basophils % 0.6 Nucleated Red Blood Cells % 0.0 Immature Granulocytes # 0.010 Neutrophils # 1.7 Lymphocytes # 2.7 Monocytes # 0.5 Eosinophils # 0.1 Basophils # 0.0 Nucleated Red Blood Cells # 0.0 Home Meds Active Scripts Clonidine Hcl* (Clonidine Hcl*) 0.2 Mg Tablet, 0.2 MG PO Q8 PRN for ELEVATED S YSTOLIC BP, #30 TAB Prov:YOLI HARRISON 07/08/15 Reported Medications Lubiprostone* (Amitiza*) 24 Mcg Capsule, 24 MCG PO BID, #60 CAP 07/06/15 Carbidopa-Levodopa* (Sinemet*) 25-100 Mg Tab, 1 TAB PO QID, TAB 07/06/15 Loperamide Hcl* (Loperamide Hcl*) 2 Mg Cap, 2 MG PO TID, CAP 07/06/15 Valsartan* (Diovan*) 160 Mg Tablet, 160 MG PO DAILY, TAB 07/06/15 Dexlansoprazole (Dexilant) 60 Mg Cap., 60 MG PO DAILY, #30 CAP 07/06/15 Metoprolol Succinate* (Toprol XL*) 50 Mg Tab.er.24h, 50 MG PO DAILY, #30 TAB 07/06/15 Citalopram Hydrobromide* (Celexa*) 20 Mg Tablet, 20 MG PO DAILY, #30 TAB 07/06/15 Aspirin (Low Dose Aspirin) 81 Mg Tablet., 81 MG PO DAILY, #30 TAB 07/06/15 Digoxin* (Digoxin*) 0.25 Mg Tab, 0.25 MG PO DAILY, #30 TAB 07/06/15 Clopidogrel Bisulfate (Clopidogrel) 75 Mg Tablet, 75 MG PO DAILY, #30 TAB 07/06/15 Lorazepam* (Lorazepam*) 1 Mg Tablet, 1 MG PO BID PRN for ANXIETY, #30 TAB 07/06/15 Triamterene-HCTZ* (Triamterene-HCTZ*) 37.5 - 25 Mg Capsule, 1 CAP PO DAILY, CAP 07/06/15 Fluticasone Propionate (Flonase Allergy Relief) 9.9 Ml [place].susp, 1 SPRAY NASAL BID, #1 BOTTLE TO EACH NOSTRIL 07/06/15 Magnesium Oxide* (Mag-Oxide*) 400 Mg Tablet, 400 MG PO BID, TAB 07/06/15 Folic Acid* (Folic Acid*) 1 Mg Tablet, 1 MG PO DAILY, TAB 07/06/15 Medications Current Medications Docusate Sodium (Colace) 100 mg BID PO Last administered on 08/22/18 08:16; Admin Dose 100 MG; Start 08/09/18 at 21:00 Senna (Senokot) 1 tab HS PO Last administered on 08/19/18 21:09; Admin Dose 1 TAB; Start 08/09/18 at 21:00 Magnesium Hydroxide (Milk Of Mag) 30 ml BID PRN PO CONSTIPATION Last administered on 08/21/18 08:24; Admin Dose 30 ML; Start 08/09/18 at 19:00 Lactulose (Enulose) 20 gm DAILY PRN PO CONSTIPATION; Start 08/09/18 at 19:00 Bisacodyl (Dulcolax Supp) 10 mg DAILY PRN [place] CONSTIPATION; Start 08/09/18 at 19:00 Miscellaneous Information (Pending [facility] Order For Wound Care) This patient mendoza... PRN PRN XX WOUND CARE; Start 08/09/18 at 19:00 Amiodarone HCl (Cordarone) 200 mg BID PO Last administered on 08/22/18 09:19; Admin Dose 200 MG; Start 08/09/18 at 21:00 Pantoprazole (Protonix Tab) 40 mg DAILY@06 PO Last administered on 08/22/18 06:07; Admin Dose 40 MG; Start 08/10/18 at 06:00 Lorazepam (Ativan) 1 mg HS PO Last administered on 08/21/18 20:19; Admin Dose 1 MG; Start 08/09/18 at 21:00 Escitalopram Oxalate (Lexapro) 20 mg DAILY PO Last administered on 08/22/18 09:16; Admin Dose 20 MG; Start 08/10/18 at 09:00 Folic Acid (Folic Acid) 1 mg DAILY PO Last administered on 08/22/18 09:21; Admin Dose 1 MG; Start 08/10/18 at 09:00 Lubiprostone (Amitiza) 24 mcg BID PO Last administered on 08/22/18 09:15; A dmin Dose 24 MCG; Start 08/09/18 at 21:00 Pramipexole (Mirapex) 0.5 mg BID PO Last administered on 08/22/18 09:15; Admin Dose 0.5 MG; Start 08/09/18 at 21:00 Magnesium Oxide (Mag-Ox 400) 400 mg DAILY PO Last administered on 08/22/18 09:23; Admin Dose 400 MG; Start 08/10/18 at 09:00 Carbidopa/Levodopa (Sinemet (/ )) 1 tab QID PO Last administered on 08/22/18 08:16; Admin Dose 1 TAB; Start 08/09/18 at 21:00 Acetaminophen (Tylenol Tab) 650 mg Q8 PRN PO MODERATE PAIN LEVEL 4-6 Last admin istered on 08/10/18 15:18; Admin Dose 650 MG; Start 08/09/18 at 19:30 Apixaban (Eliquis) 2.5 mg BID PO Last administered on 08/22/18 08:16; Admin Dose 2.5 MG; Start 08/11/18 at 09:00 Tramadol HCl (Ultram) 50 mg Q4H PRN PO SEVERE PAIN LEVEL 7-10 Last administered on 08/22/18 08:17; Admin Dose 50 MG; Start 08/11/18 at 15:30 Furosemide (Lasix) 20 mg BID PO Last administered on 08/22/18 09:20; Admin Dose 20 MG; Start 08/13/18 at 21:00 Lubiprostone (Amitiza) 8 mcg BID PRN PO constipation; Start 08/14/18 at 15:00 Clopidogrel Bisulfate (plaVIX) 75 mg DAILY PO Last administered on 08/21/18at 0 8:29; Admin Dose 75 MG; Start 08/16/18 at 09:00; Status Hold Nifedipine (Procardia Xl) 30 mg DAILY PO Last administered on 08/21/18 08:29; Admin Dose 30 MG; Start 08/19/18 at 09:00 Metoprolol Succinate (Toprol Xl) 25 mg BID PO ; Start 08/21/18 at 21:00 Assessment/Plan Hospital Course (Demo Recall) 1. Paroxysmal atrial fibrillation on amiodarone - converted to Eliquis 2.5 mg po bid- rate controlled now. Rate controlled now. Treated. 2. Hypertension, mildly elevated - con't to add Rx to goal s/p CVA. On Plavix. Treated. In range. Con't to monitor - no Sx now. 3. Dyslipidemia, not on statin at this time. 4. Status post acute cerebrovascular accident, in rehab now - compliant with rehab. Con;t rehab - doing well. Con't rehab. Compliant. Doing well with rehab. 5. Anemia - H/H stable - no bleeding now. Con't to follow. Hg 9.3 now. 6. Parkinson. 7. Psychiatric disorder- treated. NO agitation now. FLACO KITCHEN MD Aug 22, 2018 11:16
[2018-08-22 14:00] VITALS: BP 128/68; PULSE 65; RESP 18
--- NOTE | 2018-08-22 15:03 | PN ---
Date/Time of Note Date/Time of Note DATE: 08/22/18 TIME: 15:00 Assessment/Plan VTE Prophylaxis Risk score (from Ns)>0 risk: 4 SCD applied (from [facility]): Yes Pharmacological prophylaxis: apixaban Lines/Catheters Urinary Cath still in place: No Assessment/Plan Hospital Course 1. 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 2. Hypertension. 3. Hyperlipidemia. 4. Parkinson disease. 5. Chronic atrial fibrillation. 6 UTI e.coli resistant to cipro, still UTI Assessment/Plan -c/w PT /OT -Feso4 BID DVT proph. Eliquiz BID -hold BP meds secondary hypotension GI proph Protonix -iron panel -cardiac consult dr Nelli mckenzie current regime -wait for cultures Result Diagram: 08/22/18 0607 Results 24hrs Laboratory Tests Test 08/22/18 04:30 08/22/18 06:07 Urine Color YELLOW Urine Clarity CLOUDY A Urine pH 7.0 Urine Specific [place] 1.017 Urine Ketones TRACE A Urine Nitrite NEGATIVE Urine Bilirubin NEGATIVE Urine Urobilinogen 1+ H Urine Leukocyte Esterase 3+ H Urine Microscopic RBC 2 Urine Microscopic WBC 27 H Urine Squamous Epithelial Cells FEW Urine Amorphous Crystals FEW A Urine Bacteria FEW A Urine Mucus MODERATE Urine Hemoglobin 1+ H Urine Glucose NEGATIVE Urine Total Protein NEGATIVE White Blood Count 4.9 Red Blood Count 3.68 L Hemoglobin 9.3 L Hematocrit 30.3 L Mean Corpuscular Volume 82.3 Mean Corpuscular Hemoglobin 25.3 L Mean Corpuscular Hemoglobin Concent 30.7 L Red Cell Distribution Width 15.9 H Platelet Count 341 Mean Platelet Volume 9.3 Immature Granulocytes % 0.200 Neutrophils % 33.7 L Lymphocytes % 54.5 H Monocytes % 9.2 Eosinophils % 1.8 Basophils % 0.6 Nucleated Red Blood Cells % 0.0 Immature Granulocytes # 0.010 Neutrophils # 1.7 Lymphocytes # 2.7 Monocytes # 0.5 Eosinophils # 0.1 Basophils # 0.0 Nucleated Red Blood Cells # 0.0 Subjective 24 Hr Interval Summary Genitourinary: dysuria Exam/Review of Systems Exam Vitals Vital Signs Date Temp Pulse Resp B/P (MAP) Pulse Ox O2 O2 Flow FiO2 Time Delivery Rate 08/22/18 97.7 61 16 124/59 97 Room Air 08:00 (80) Intake and Output 4/26/19 4/26/19 4/27/19 1515:00 23:00 07:00 IntakeIntake Total 1650 ml 200 ml OutputOutput Total 450 ml BalanceBalance 1650 ml -250 ml Constitutional: alert, oriented Eyes: nl conjunctiva Neck: supple Respiratory: clear to auscultation Cardiovascular: regular rate and rhythm Gastrointestinal: soft Results Results 24hrs Laboratory Tests Test 08/22/18 04:30 08/22/18 06:07 Urine Color YELLOW Urine Clarity CLOUDY A Urine pH 7.0 Urine Specific [place] 1.017 Urine Ketones TRACE A Urine Nitrite NEGATIVE Urine Bilirubin NEGATIVE Urine Urobilinogen 1+ H Urine Leukocyte Esterase 3+ H Urine Microscopic RBC 2 Urine Microscopic WBC 27 H Urine Squamous Epithelial Cells FEW Urine Amorphous Crystals FEW A Urine Bacteria FEW A Urine Mucus MODERATE Urine Hemoglobin 1+ H Urine Glucose NEGATIVE Urine Total Protein NEGATIVE White Blood Count 4.9 Red Blood Count 3.68 L Hemoglobin 9.3 L Hematocrit 30.3 L Mean Corpuscular Volume 82.3 Mean Corpuscular Hemoglobin 25.3 L Mean Corpuscular Hemoglobin Concent 30.7 L Red Cell Distribution Width 15.9 H Platelet Count 341 Mean Platelet Volume 9.3 Immature Granulocytes % 0.200 Neutrophils % 33.7 L Lymphocytes % 54.5 H Monocytes % 9.2 Eosinophils % 1.8 Basophils % 0.6 Nucleated Red Blood Cells % 0.0 Immature Granulocytes # 0.010 Neutrophils # 1.7 Lymphocytes # 2.7 Monocytes # 0.5 Eosinophils # 0.1 Basophils # 0.0 Nucleated Red Blood Cells # 0.0 Medications Medication Current Medications Docusate Sodium (Colace) 100 mg BID PO Last administered on 08/22/18at 08:16; Admin Dose 100 MG; Start 08/09/18 at 21:00 Senna (Senokot) 1 tab HS PO Last administered on 08/19/18 21:09; Admin Dose 1 TAB; Start 08/09/18 at 21:00 Magnesium Hydroxide (Milk Of Mag) 30 ml BID PRN PO CONSTIPATION Last adminis tered on 08/21/18at 08:24; Admin Dose 30 ML; Start 08/09/18 at 19:00 Lactulose (Enulose) 20 gm DAILY PRN PO CONSTIPATION; Start 08/09/18 at 19:00 Bisacodyl (Dulcolax Supp) 10 mg DAILY PRN [place] CONSTIPATION; Start 08/09/18 at 19:00 Miscellaneous Information (Pending [facility]) This patient mendoza... PRN PRN XX WOUND CARE; Start 08/09/18 at 19:00 Amiodarone HCl (Cordarone) 200 mg BID PO Last administered on 08/22/18 09:19; Admin Dose 200 MG; Start 08/09/18 at 21:00 Pantoprazole (Protonix Tab) 40 mg DAILY@06 PO Last administered on 08/22/18 06:07; Admin Dose 40 MG; Start 08/10/18 at 06:00 Lorazepam (Ativan) 1 mg HS PO Last administered on 08/21/18 20:19; Admin Dose 1 MG; Start 08/09/18 at 21:00 Escitalopram Oxalate (Lexapro) 20 mg DAILY PO Last administered on 08/22/18 0 9:16; Admin Dose 20 MG; Start 08/10/18 at 09:00 Folic Acid (Folic Acid) 1 mg DAILY PO Last administered on 08/22/18 09:21; Admin Dose 1 MG; Start 08/10/18 at 09:00 Lubiprostone (Amitiza) 24 mcg BID PO Last administered on 08/22/18 09:15; Admin Dose 24 MCG; Start 08/09/18 at 21:00 Pramipexole (Mirapex) 0.5 mg BID PO Last administered on 08/22/18 09:15; Admin Dose 0.5 MG; Start 08/09/18 at 21:00 Magnesium Oxide (Mag-Ox 400) 400 mg DAILY PO Last administered on 08/22/18 09:23; Admin Dose 400 MG; Start 08/10/18 at 09:00 Carbidopa/Levodopa (Sinemet (25/ 100)) 1 tab QID PO Last administered on 08/22/18 13:06; Admin Dose 1 TAB; Start 08/09/18 at 21:00 Acetaminophen (Tylenol Tab) 650 mg Q8 PRN PO MODERATE PAIN LEVEL 4-6 Last administered on 08/10/18 15:18; Admin Dose 650 MG; Start 08/09/18 at 19:30 Apixaban (Eliquis) 2.5 mg BID PO Last administered on 08/22/18 08:16; Admin Dose 2.5 MG; Start 08/11/18 at 09:00 Tramadol HCl (Ultram) 50 mg Q4H PRN PO SEVERE PAIN LEVEL 7-10 Last administered on 08/22/18 13:06; Admin Dose 50 MG; Start 08/11/18 at 15:30 Furosemide (Lasix) 20 mg BID PO Last administered on 08/22/18 09:20; Admin Dose 20 MG; Start 08/13/18 at 21:00 Lubiprostone (Amitiza) 8 mcg BID PRN PO constipation; Start 08/14/18 at 15:00 Clopidogrel Bisulfate (plaVIX) 75 mg DAILY PO Last administered on 08/21/18 08:29; Admin Dose 75 MG; Start 08/16/18 at 09:00; Status Hold Nifedipine (Procardia Xl) 30 mg DAILY PO Last administered on 08/21/18 08:29; Admin Dose 30 MG; Start 08/19/18 at 09:00 Metoprolol Succinate (Toprol Xl) 25 mg BID PO ; Start 08/21/18 at 21:00 JUSTIN NAVARRO Aug 22, 2018 15:03
[2018-08-22 20:00] VITALS: BP 127/60; PULSE 63; RESP 18
[2018-08-22] MEDS: POLYSACCHARIDE IRON COMPLEX CAP PO SCH (20:40)
[2018-08-22] MEDS: LORAZEPAM 0.5 MG TAB PO SCH (20:41)
[2018-08-22] MEDS: SENNA TAB PO SCH (21:00)
[2018-08-23 04:00] VITALS: BP 146/53; PULSE 63; RESP 20
[2018-08-23] MEDS: PANTOPRAZOLE (EC) 40 MG TAB PO SCH (06:30)
[2018-08-23 08:00] VITALS: BP 125/59; PULSE 66; RESP 18
--- NOTE | 2018-08-23 08:16 | PN ---
Date/Time of Note Date/Time of Note DATE: 08/23/18 TIME: 08:16 Subjective No new complaints Objective Vital Signs Date Temp Pulse Resp B/P (MAP) Pulse Ox O2 O2 Flow FiO2 Time Delivery Rate 08/23/18 97.8 63 20 146/53 98 Room Air 04:00 (84) Intake and Output 08/22/18 08/22/18 08/23/18 1414:59 22:59 06:59 IntakeIntake Total 450 ml 200 ml 300 ml OutputOutput Total 400 ml BalanceBalance 450 ml -200 ml 300 ml Exam pulm- cta sba 75 feet Results/Medications Result Diagram: 08/22/18 0607 Results 24 hrs Laboratory Tests Test 08/23/18 06:45 Iron Level 34 L Total Iron Binding Capacity 415 Percent Iron Saturation 8 L Medications Current Medications Docusate Sodium (Colace) 100 mg BID PO Last administered on 08/22/18 08:16; Admin Dose 100 MG; Start 08/09/18 at 21:00 Senna (Senokot) 1 tab HS PO Last administered on 08/19/18 21:09; Admin Dose 1 TAB; Start 08/09/18 at 21:00 Magnesium Hydroxide (Milk Of Mag) 30 ml BID PRN PO CONSTIPATION Last administered on 08/21/18 08:24; Admin Dose 30 ML; Start 08/09/18 at 19:00 Lactulose (Enulose) 20 gm DAILY PRN PO CONSTIPATION; Start 08/09/18 at 19:00 Bisacodyl (Dulcolax Supp) 10 mg DAILY PRN [place] CONSTIPATION; Start 08/09/18 at 19:00 [facility]isc[facility] This patient mendoza... PRN PRN XX WOUND CARE; Start 08/09/18 at 19:00 Amiodarone HCl (Cordarone) 200 mg BID PO Last administered on 08/22/18 20:40; Admin Dose 200 MG; Start 08/09/18 at 21:00 Pantoprazole (Protonix Tab) 40 mg DAILY@06 PO Last administered on 08/23/18 06:30; Admin Dose 40 MG; Start 08/10/18 at 06:00 Lorazepam (Ativan) 1 mg HS PO Last administered on 08/22/18 20:41; Admin Dose 1 MG; Start 08/09/18 at 21:00 Escitalopram Oxalate (Lexapro) 20 mg DAILY PO Last administered on 08/22/18 09:16; Admin Dose 20 MG; Start 08/10/18 at 09:00 Folic Acid (Folic Acid) 1 mg DAILY PO Last administered on 08/22/18 09:21; Admin Dose 1 MG; Start 08/10/18 at 09:00 Lubiprostone (Amitiza) 24 mcg BID PO Last administered on 08/22/18 20:41; Admin Dose 24 MCG; Start 08/09/18 at 21:00 Pramipexole (Mirapex) 0.5 mg BID PO Last administered on 08/22/18 20:39; Admin Dose 0.5 MG; Start 08/09/18 at 21:00 Magnesium Oxide (Mag-Ox 400) 400 mg DAILY PO Last administered on 08/22/18 09:23; Admin Dose 400 MG; Start 08/10/18 at 09:00 Carbidopa/Levodopa (Sinemet (25/ 100)) 1 tab QID PO Last administered on 08/22/18 20:38; Admin Dose 1 TAB; Start 08/09/18 at 21:00 Acetaminophen (Tylenol Tab) 650 mg Q8 PRN PO MODERATE PAIN LEVEL 4-6 Last administered on 08/10/18 15:18; Admin Dose 650 MG; Start 08/09/18 at 19:30 Apixaban (Eliquis) 2.5 mg BID PO Last administered on 08/22/18 20:41; Admin Dose 2.5 MG; Start 08/11/18 at 09:00 Tramadol HCl (Ultram) 50 mg Q4H PRN PO SEVERE PAIN LEVEL 7-10 Last administered on 08/22/18 17:49; Admin Dose 50 MG; Start 08/11/18 at 15:30 Furosemide (Lasix) 20 mg BID PO Last administered on 08/22/18 20:40; Admin Dose 20 MG; Start 08/13/18 at 21:00 Lubiprostone (Amitiza) 8 mcg BID PRN PO constipation; Start 08/14/18 at 15:00 Clopidogrel Bisulfate (plaVIX) 75 mg DAILY PO Last administered on 08/21/18 08:29; Admin Dose 75 MG; Start 08/16/18 at 09:00; Status Hold Nifedipine (Procardia Xl) 30 mg DAILY PO Last administered on 08/21/18 08:29; Admin Dose 30 MG; Start 08/19/18 at 09:00 Metoprolol Succinate (Toprol Xl) 25 mg BID PO Last administered on 08/22/18at 20:39; Admin Dose 25 MG; Start 08/21/18 at 21:00 Polysaccharide Iron Complex (Niferex-150) 1 cap BID PO Last administered on 08/22/18at 20:40; Admin Dose 1 CAP; Start 08/22/18 at 21:00 Assessment/Plan Additional Assessment/Plan Rehab- 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 continue rehab therapies Hypertension. Dysphagia- improving History of atrial fibrillation. JAMES PYLE MD Aug 23, 2018 08:16
[2018-08-23] MEDS: DOCUSATE SODIUM 100 MG CAP PO SCH ×2 (09:00→21:15)
[2018-08-23] MEDS: FOLIC ACID 1 MG TAB PO SCH (09:38)
[2018-08-23] MEDS: AMIODARONE 200 MG TAB PO SCH ×2 (09:38→21:00)
[2018-08-23] MEDS: APIXABAN 5 MG TABLET PO SCH ×2 (09:38→21:15)
[2018-08-23] MEDS: METOPROLOL (XL) 25 MG TAB PO SCH ×2 (09:39→21:00)
[2018-08-23] MEDS: ESCITALOPRAM 10 MG TAB PO SCH (09:39)
[2018-08-23] MEDS: CARBIDOPA/LEVODOPA (25/100) TAB PO SCH ×4 (09:39→21:15)
[2018-08-23] MEDS: FUROSEMIDE 20 MG TAB PO SCH ×2 (09:39→21:00)
[2018-08-23] MEDS: PRAMIPEXOLE 0.25 MG TAB PO SCH ×2 (09:39→21:15)
[2018-08-23] MEDS: MAGNESIUM OXIDE 400 MG TAB PO SCH (09:39)
[2018-08-23] MEDS: POLYSACCHARIDE IRON COMPLEX CAP PO SCH ×2 (09:39→21:15)
[2018-08-23] MEDS: NIFEdipine (XL) 30 MG TAB PO SCH (09:40)
[2018-08-23 13:37] VITALS: BP 110/53; PULSE 66; RESP 18
--- NOTE | 2018-08-23 16:01 | CONS ---
Consult Date/Type/Reason Admit Date/Time Aug 09, 2018 at 18:10 Initial Consult Date Requesting Provider: CORI JON MD Date/Time of Note DATE: 08/23/18 TIME: 15:59 Subjective NO acute events - pt doing well with rehab - no CP now - dispo planned for Tue. ROS: No fever, no chills, no nausea, no vomiting, no diarrhea/constipation No recent weight changes No chest pain, no PND, no orthopnea No dizziness, blurred vision No thirst, no heat or cold intolerance Objective Vitals Vital Signs Date Temp Pulse Resp B/P (MAP) Pulse Ox O2 O2 Flow FiO2 Time Delivery Rate 08/23/18 98.5 66 18 110/53 97 Room Air 13:37 (72) Intake and Output 08/22/18 08/22/18 08/23/18 1515:00 23:00 07:00 IntakeIntake Total 450 ml 200 ml 300 ml OutputOutput Total 400 ml BalanceBalance 450 ml -200 ml 300 ml Exam General: WN/WD/NAD, AOx 2-3 HEENT: Unicetric/atraumatic/EOMI (follow commands) NECK: JVD elevated, no thyromegaly Lymph: no lymphadenopathy HEART: regular with no S3, II/ systolic murmur at apex LUNGS: Coarse sounds ABD: soft, NT, ND, +BS : Intact Neuro: non focal SKIN: chronic changes EXT: trace edema Results/Medications Result Diagram: 08/22/18 0607 Results 24 hrs Laboratory Tests Test 08/23/18 06:45 Iron Level 34 L Total Iron Binding Capacity 415 Percent Iron Saturation 8 L Home Meds Active Scripts Clonidine Hcl* (Clonidine Hcl*) 0.2 Mg Tablet, 0.2 MG PO Q8 PRN for ELEVATED SYSTOLIC BP, #30 TAB Prov:YOLI HARRISON 07/08/15 Reported Medications Lubiprostone* (Amitiza*) 24 Mcg Capsule, 24 MCG PO BID, #60 CAP 07/06/15 Carbidopa-Levodopa* (Sinemet*) 25-100 Mg Tab, 1 TAB PO QID, TAB 07/06/15 Loperamide Hcl* (Loperamide Hcl*) 2 Mg Cap, 2 MG PO TID, CAP 07/06/15 Valsartan* (Diovan*) 160 Mg Tablet, 160 MG PO DAILY, TAB 3/10/16 Dexlansoprazole (Dexilant) 60 Mg Cap.mp, 60 MG PO DAILY, #30 CAP 07/06/15 Metoprolol Succinate* (Toprol XL*) 50 Mg Tab.er.24h, 50 MG PO DAILY, #30 TAB 07/06/15 Citalopram Hydrobromide* (Celexa*) 20 Mg Tablet, 20 MG PO DAILY, #30 TAB 07/06/15 Aspirin (Low Dose Aspirin) 81 Mg Tablet.dr, 81 MG PO DAILY, #30 TAB 07/06/15 Digoxin* (Digoxin*) 0.25 Mg Tab, 0.25 MG PO DAILY, #30 TAB 07/06/15 Clopidogrel Bisulfate (Clopidogrel) 75 Mg Tablet, 75 MG PO DAILY, #30 TAB 07/06/15 Lorazepam* (Lorazepam*) 1 Mg Tablet, 1 MG PO BID PRN for ANXIETY, #30 TAB 07/06/15 Triamterene-HCTZ* (Triamterene-HCTZ*) 37.5 - 25 Mg Capsule, 1 CAP PO DAILY, CAP 07/06/15 Fluticasone Propionate (Flonase Allergy Relief) 9.9 Ml [place].susp, 1 SPRAY NASAL BID, #1 BOTTLE TO EACH NOSTRIL 07/06/15 Magnesium Oxide* (Mag-Oxide*) 400 Mg Tablet, 400 MG PO BID, TAB 07/06/15 Folic Acid* (Folic Acid*) 1 Mg Tablet, 1 MG PO DAILY, TAB 07/06/15 Medications Current Medications Docusate Sodium (Colace) 100 mg BID PO Last administered on 08/22/18at 08:16; Admin Dose 100 MG; Start 08/09/18 at 21:00 Senna (Senokot) 1 tab HS PO Last administered on 08/19/18at 21:09; Admin Dose 1 TAB; Start 08/09/18 at 21:00 Magnesium Hydroxide (Milk Of Mag) 30 ml BID PRN PO CONSTIPATION Last administered on 08/21/18at 08:24; Admin Dose 30 ML; Start 08/09/18 at 19:00 Lactulose (Enulose) 20 gm DAILY PRN PO CONSTIPATION; Start 08/09/18 at 19:00 Bisacodyl (Dulcolax Supp) 10 mg DAILY PRN [place] CONSTIPATION; Start 08/09/18 at 19:00 Miscellaneous Information (Pending [facility] Order For Wound Care) This patient mendoza... PRN PRN XX WOUND CARE; Start 08/09/18 at 19:00 Amiodarone HCl (Cordarone) 200 mg BID PO Last administered on 08/23/18 09:38; Admin Dose 200 MG; Start 08/09/18 at 21:00 Pantoprazole (Protonix Tab) 40 mg DAILY@06 PO Last administered on 08/23/18 06:30; Admin Dose 40 MG; Start 08/10/18 at 06:00 Lorazepam (Ativan) 1 mg HS PO Last administered on 08/22/18 20:41; Admin Dose 1 MG; Start 08/09/18 at 21:00 Escitalopram Oxalate (Lexapro) 20 mg DAILY PO Last administered on 08/23/18 09:39; Admin Dose 20 MG; Start 08/10/18 at 09:00 Folic Acid (Folic Acid) 1 mg DAILY PO Last administered on 08/23/18 09:38; Admin Dose 1 MG; Start 08/10/18 at 09:00 Lubiprostone (Amitiza) 24 mcg BID PO Last administered on 08/22/18 20:41; Admin Dose 24 MCG; Start 08/09/18 at 21:00 Pramipexole (Mirapex) 0.5 mg BID PO Last administered on 08/23/18 09:39; Admin Dose 0.5 MG; Start 08/09/18 at 21:00 Magnesium Oxide (Mag-Ox 400) 400 mg DAILY PO Last administered on 08/23/18 09:39; Admin Dose 400 MG; Start 08/10/18 at 09:00 Carbidopa/Levodopa (Sinemet (25/ 100)) 1 tab QID PO Last administered on 08/23/18 09:39; Admin Dose 1 TAB; Start 08/09/18 at 21:00 Acetaminophen (Tylenol Tab) 650 mg Q8 PRN PO MODERATE PAIN LEVEL 4-6 Last administered on 08/10/18 15:18; Admin Dose 650 MG; Start 08/09/18 at 19:30 Apixaban (Eliquis) 2.5 mg BID PO Last administered on 08/23/18 09:38; Admin Dose 2.5 MG; Start 08/11/18 at 09:00 Tramadol HCl (Ultram) 50 mg Q4H PRN PO SEVERE PAIN LEVEL 7-10 Last administered on 08/22/18 17:49; Admin Dose 50 MG; Start 08/11/18 at 15:30 Furosemide (Lasix) 20 mg BID PO Last administered on 08/23/18 09:39; Admin Dose 20 MG; Start 08/13/18 at 21:00 Lubiprostone (Amitiza) 8 mcg BID PRN PO constipation; Start 08/14/18 at 15:00 Clopidogrel Bisulfate (plaVIX) 75 mg DAILY PO Last administered on 08/21/18 08:29; Admin Dose 75 MG; Start 08/16/18 at 09:00; Status Hold Nifedipine (Procardia Xl) 30 mg DAILY PO Last administered on 08/23/18 09:40; Admin Dose 30 MG; Start 08/19/18 at 09:00 Metoprolol Succinate (Toprol Xl) 25 mg BID PO Last administered on 08/23/18 09:39; Admin Dose 25 MG; Start 08/21/18 at 21:00 Polysaccharide Iron Complex (Niferex-150) 1 cap BID PO Last administered on 08/23/18 09:39; Admin Dose 1 CAP; Start 08/22/18 at 21:00 Assessment/Plan Hospital Course (Demo Recall) 1. Paroxysmal atrial fibrillation on amiodarone - converted to Eliquis 2.5 mg po bid- rate controlled now. Rate controlled now. Treated. Tolerated Rx well. 2. Hypertension, mildly elevated - con't to add Rx to goal s/p CVA. On Plavix. Treated. In range. Con't to monitor - no Sx now. On meds. 3. Dyslipidemia, not on statin at this time. 4. Status post acute cerebrovascular accident, in rehab now - compliant with rehab. Con;t rehab - doing well. Con't rehab. Compliant. Doing well with rehab. Will follow. 5. Anemia - H/H stable - no bleeding now. Con't to follow. Hg 9.3 now. No bleeding. 6. Parkinson. 7. Psychiatric disorder- treated. NO agitation now. FLACO KITCHEN MD Aug 23, 2018 16:01
--- NOTE | 2018-08-23 16:07 | PN ---
Date/Time of Note Date/Time of Note DATE: 08/23/18 TIME: 16:05 Assessment/Plan VTE Prophylaxis Risk score (from Ns)>0 risk: 4 SCD applied (from [facility] [place]): Yes Pharmacological prophylaxis: apixaban Lines/Catheters Urinary Cath still in place: No Assessment/Plan Hospital Course 1. 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 2. Hypertension. 3. Hyperlipidemia. 4. Parkinson disease. 5. Chronic atrial fibrillation. 6 UTI e.coli resistant to cipro, still UTI Assessment/Plan -c/w PT /OT -Feso4 BID DVT proph. Eliquiz BID -hold BP meds secondary hypotension -GI proph Protonix -iron panel reviewed -cardiac consult dr Nelli mcadams current regime -wait for cultures, no urine was sent Result Diagram: 08/22/1807 Results 24hrs Laboratory Tests Test 08/23/18 06:45 Iron Level 34 L Total Iron Binding Capacity 415 Percent Iron Saturation 8 L Subjective 24 Hr Interval Summary Gastrointestinal: no complaints Genitourinary: dysuria Exam/Review of Systems Exam Vitals Vital Signs Date Temp Pulse Resp B/P (MAP) Pulse Ox O2 O2 Flow FiO2 Time Delivery Rate 08/23/18 98.5 66 18 110/53 97 Room Air 13:37 (72) Intake and Output 08/22/18 08/22/18 08/23/18 1515:00 23:00 07:00 IntakeIntake Total 450 ml 200 ml 300 ml OutputOutput Total 400 ml BalanceBalance 450 ml -200 ml 300 ml Constitutional: alert, oriented Neck: supple Respiratory: clear to auscultation Cardiovascular: regular rate and rhythm Gastrointestinal: soft Results Results 24hrs Laboratory Tests Test 08/23/18 06:45 Iron Level 34 L Total Iron Binding Capacity 415 Percent Iron Saturation 8 L Medications Medication Current Medications Docusate Sodium (Colace) 100 mg BID PO Last administered on 08/22/18at 08:16; Admin Dose 100 MG; Start 08/09/18 at 21:00 Senna (Senokot) 1 tab HS PO Last administered on 08/19/18at 21:09; Admin Dose 1 TAB; Start 08/09/18 at 21:00 Magnesium Hydroxide (Milk Of Mag) 30 ml BID PRN PO CONSTIPATION Last administered on 4/26/19at 08:24; Admin Dose 30 ML; Start 08/09/18 at 19:00 Lactulose (Enulose) 20 gm DAILY PRN PO CONSTIPATION; Start 08/09/18 at 19:00 Bisacodyl (Dulcolax Supp) 10 mg DAILY PRN [place] CONSTIPATION; Start 08/09/18 at 19:00 Miscellaneous Information (Pending Santyl Order For Wound Care) This patient mendoza... PRN PRN XX WOUND CARE; Start 08/09/18 at 19:00 Amiodarone HCl (Cordarone) 200 mg BID PO Last administered on 08/23/18 09:38; Admin Dose 200 MG; Start 08/09/18 at 21:00 Pantoprazole (Protonix Tab) 40 mg DAILY@06 PO Last administered on 08/23/18 06:30; Admin Dose 40 MG; Start 08/10/18 at 06:00 Lorazepam (Ativan) 1 mg HS PO Last administered on 08/22/18 20:41; Admin Dose 1 MG; Start 08/09/18 at 21:00 Escitalopram Oxalate (Lexapro) 20 mg DAILY PO Last administered on 08/23/18 09:39; Admin Dose 20 MG; Start 08/10/18 at 09:00 Folic Acid (Folic Acid) 1 mg DAILY PO Last administered on 08/23/18 09:38; Admin Dose 1 MG; Start 08/10/18 at 09:00 Lubiprostone (Amitiza) 24 mcg BID PO Last administered on 08/22/18 20:41; Admin Dose 24 MCG; Start 08/09/18 at 21:00 Pramipexole (Mirapex) 0.5 mg BID PO Last administered on 08/23/18 09:39; Admin Dose 0.5 MG; Start 08/09/18 at 21:00 Magnesium Oxide (Mag-Ox 400) 400 mg DAILY PO Last administered on 08/23/18 09:39; Admin Dose 400 MG; Start 08/10/18 at 09:00 Carbidopa/Levodopa (Sinemet (25/ 100)) 1 tab QID PO Last administered on 08/23/18 09:39; Admin Dose 1 TAB; Start 08/09/18 at 21:00 Acetaminophen (Tylenol Tab) 650 mg Q8 PRN PO MODERATE PAIN LEVEL 4-6 Last administered on 08/10/18 15:18; Admin Dose 650 MG; Start 08/09/18 at 19:30 Apixaban (Eliquis) 2.5 mg BID PO Last administered on 08/23/18 09:38; Admin Dose 2.5 MG; Start 08/11/18 at 09:00 Tramadol HCl (Ultram) 50 mg Q4H PRN PO SEVERE PAIN LEVEL 7-10 Last administered on 08/22/18 17:49; Admin Dose 50 MG; Start 08/11/18 at 15:30 Furosemide (Lasix) 20 mg BID PO Last administered on 08/23/18 09:39; Admin Dose 20 MG; Start 08/13/18 at 21:00 Lubiprostone (Amitiza) 8 mcg BID PRN PO constipation; Start 08/14/18 at 15:00 Clopidogrel Bisulfate (plaVIX) 75 mg DAILY PO Last administered on 08/21/18 08:29; Admin Dose 75 MG; Start 08/16/18 at 09:00; Status Hold Nifedipine (Procardia Xl) 30 mg DAILY PO Last administered on 08/23/18 09:40; Admin Dose 30 MG; Start 08/19/18 at 09:00 Metoprolol Succinate (Toprol Xl) 25 mg BID PO Last administered on 08/23/18 09:39; Admin Dose 25 MG; Start 08/21/18 at 21:00 Polysaccharide Iron Complex (Niferex-150) 1 cap BID PO Last administered on 08/23/18 09:39; Admin Dose 1 CAP; Start 08/22/18 at 21:00 JUSTIN NAVARRO Aug 23, 2018 16:07
[2018-08-23] MEDS: LUBIPROSTONE 24 MCG CAP PO SCH ×2 (16:19→21:15)
[2018-08-23 20:00] VITALS: BP 105/50; PULSE 57; RESP 18
[2018-08-23] MEDS: SENNA TAB PO SCH (21:15)
[2018-08-23] MEDS: LORAZEPAM 0.5 MG TAB PO SCH (21:15)
[2018-08-24 02:00] VITALS: BP 117/56; PULSE 57; RESP 18
[2018-08-24 06:00] VITALS: BP 115/57; PULSE 56; RESP 17
[2018-08-24] MEDS: PANTOPRAZOLE (EC) 40 MG TAB PO SCH (06:43)
[2018-08-24 08:00] VITALS: BP 132/50; PULSE 57; RESP 18
[2018-08-24] MEDS: APIXABAN 5 MG TABLET PO SCH ×2 (08:44→21:46)
[2018-08-24] MEDS: MAGNESIUM OXIDE 400 MG TAB PO SCH (08:44)
[2018-08-24] MEDS: FUROSEMIDE 20 MG TAB PO SCH ×2 (08:44→21:46)
[2018-08-24] MEDS: CARBIDOPA/LEVODOPA (25/100) TAB PO SCH ×4 (08:44→21:45)
[2018-08-24] MEDS: PRAMIPEXOLE 0.25 MG TAB PO SCH ×2 (08:44→21:46)
[2018-08-24] MEDS: DOCUSATE SODIUM 100 MG CAP PO SCH ×2 (08:44→21:46)
[2018-08-24] MEDS: ESCITALOPRAM 10 MG TAB PO SCH (08:45)
[2018-08-24] MEDS: LUBIPROSTONE 24 MCG CAP PO SCH ×2 (08:45→21:45)
[2018-08-24] MEDS: NIFEdipine (XL) 30 MG TAB PO SCH (08:45)
[2018-08-24] MEDS: POLYSACCHARIDE IRON COMPLEX CAP PO SCH ×2 (08:46→21:46)
[2018-08-24] MEDS: FOLIC ACID 1 MG TAB PO SCH (08:46)
[2018-08-24] MEDS: METOPROLOL (XL) 25 MG TAB PO SCH (08:46)
[2018-08-24] MEDS: AMIODARONE 200 MG TAB PO SCH (08:47)
--- NOTE | 2018-08-24 13:28 | PN ---
Date/Time of Note Date/Time of Note DATE: 08/24/18 TIME: 13:27 Objective Vital Signs Date Temp Pulse Resp B/P (MAP) Pulse Ox O2 O2 Flow FiO2 Time Delivery Rate 08/24/18 97.9 57 18 132/50 96 Room Air 08:00 (77) Intake and Output 08/23/18 08/23/18 08/24/18 1414:59 22:59 06:59 IntakeIntake Total 200 ml OutputOutput Total 200 ml BalanceBalance 200 ml -200 ml Exam INTERDISCIPLINARY TEAM CONFERENCE Attended by PT, OT, ST, Hospital Pharmacy Director, Social Work, Rehabilitation Nursing, Brasswind Instrument Repairer and Grade TeacherFamily And Consumer Education Teacher Exam: Pulm- cta Abd-soft BOWEL- Cont BLADDER-Cont SKIN- intact OT- DRESSING- sba/cga BATHING-cga TOILETING- cga PT- BED MOBILITY- sba TRANSFERS- cga AMBULATION- sba/cga 75 feet SPEECH- Dysphagia- improved A/P- Interdisciplinary team conference held today. Please see interdisciplinary sheet. Working toward d.c. on 08/25 with post discharge follow up of physical therapy, occupational therapy. Results/Medications Result Diagram: 08/22/18 0607 Medications Current Medications Docusate Sodium (Colace) 100 mg BID PO Last administered on 08/24/18at 08:44; Admin Dose 100 MG; Start 08/09/18 at 21:00 Senna (Senokot) 1 tab HS PO Last administered on 08/23/18at 21:15; Admin Dose 1 TAB; Start 08/09/18 at 21:00 Magnesium Hydroxide (Milk Of Mag) 30 ml BID PRN PO CONSTIPATION Last administered on 08/21/18at 08:24; Admin Dose 30 ML; Start 08/09/18 at 19:00 Lactulose (Enulose) 20 gm DAILY PRN PO CONSTIPATION; Start 08/09/18 at 19:00 Bisacodyl (Dulcolax Supp) 10 mg DAILY PRN [place] CONSTIPATION; Start 08/09/18 at 19:00 Miscellaneous Information (Pending Santyl Order For Wound Care) This patient mendoza... PRN PRN XX WOUND CARE; Start 08/09/18 at 19:00 Amiodarone HCl (Cordarone) 200 mg BID PO Last administered on 08/23/18at 09:38; Admin Dose 200 MG; Start 08/09/18 at 21:00 Pantoprazole (Protonix Tab) 40 mg DAILY@06 PO Last administered on 08/24/18 06:43; Admin Dose 40 MG; Start 08/10/18 at 06:00 Lorazepam (Ativan) 1 mg HS PO Last administered on 08/23/18 21:15; Admin Dose 1 MG; Start 08/09/18 at 21:00 Escitalopram Oxalate (Lexapro) 20 mg DAILY PO Last administered on 08/24/18 08:45; Admin Dose 20 MG; Start 08/10/18 at 09:00 Folic Acid (Folic Acid) 1 mg DAILY PO Last administered on 08/24/18 08:46; Admin Dose 1 MG; Start 08/10/18 at 09:00 Lubiprostone (Amitiza) 24 mcg BID PO Last administered on 08/24/18 08:45; Admin Dose 24 MCG; Start 08/09/18 at 21:00 Pramipexole (Mirapex) 0.5 mg BID PO Last administered on 08/24/18 08:44; Admin Dose 0.5 MG; Start 08/09/18 at 21:00 Magnesium Oxide (Mag-Ox 400) 400 mg DAILY PO Last administered on 08/24/18 08:44; Admin Dose 400 MG; Start 08/10/18 at 09:00 Carbidopa/Levodopa (Sinemet (25/ 100)) 1 tab QID PO Last administered on 08/24/18 12:01; Admin Dose 1 TAB; Start 08/09/18 at 21:00 Acetaminophen (Tylenol Tab) 650 mg Q8 PRN PO MODERATE PAIN LEVEL 4-6 Last administered on 08/10/18 15:18; Admin Dose 650 MG; Start 08/09/18 at 19:30 Apixaban (Eliquis) 2.5 mg BID PO Last administered on 08/24/18 08:44; Admin Dose 2.5 MG; Start 08/11/18 at 09:00 Tramadol HCl (Ultram) 50 mg Q4H PRN PO SEVERE PAIN LEVEL 7-10 Last administered on 08/22/18 17:49; Admin Dose 50 MG; Start 08/11/18 at 15:30 Furosemide (Lasix) 20 mg BID PO Last administered on 08/24/18 08:44; Admin Dose 20 MG; Start 08/13/18 at 21:00 Lubiprostone (Amitiza) 8 mcg BID PRN PO constipation; Start 08/14/18 at 15:00 Clopidogrel Bisulfate (plaVIX) 75 mg DAILY PO Last administered on 08/21/18at 08:29; Admin Dose 75 MG; Start 08/16/18 at 09:00; Status Hold Nifedipine (Procardia Xl) 30 mg DAILY PO Last administered on 08/24/18at 08:45; Admin Dose 30 MG; Start 08/19/18 at 09:00 Metoprolol Succinate (Toprol Xl) 25 mg BID PO Last administered on 08/23/18at 09:39; Admin Dose 25 MG; Start 08/21/18 at 21:00 Polysaccharide Iron Complex (Niferex-150) 1 cap BID PO Last administered on 08/24/18at 08:46; Admin Dose 1 CAP; Start 08/22/18 at 21:00 JAMES PYLE MD Aug 24, 2018 13:28
--- NOTE | 2018-08-24 13:30 | CONS ---
Assessment/Plan Assessment/Plan Hospital Course (Demo Recall) IMPRESSION: 1. Paroxysmal atrial fibrillation on amiodarone -in SR by ecg 08/11 2. Hypertension, mildly elevated. 3. Dyslipidemia, not on statin at this time. 4. Status post acute cerebrovascular accident, in rehab now. 5. Anemia. 6. Parkinson. 7. Psychiatric disorder. Recc: -Now on eliquis -Continue amiodarone at current doses as tolerated and will make further decrease in dose of BB to allow patient to better tolerate -Continue procardia XL -Continue sinemet -PT/OT -Follow volume status closely on lasix BID Consultation Date/Type/Reason Admit Date/Time Aug 09, 2018 at 18:10 Initial Consult Date 08/10/18 Type of Consult Cardiology Reason for Consultation PAF Requesting Provider: CORI JON MD Date/Time of Note DATE: 08/24/18 TIME: 13:27 Exam/Review of Systems Vital Signs Vitals Vital Signs Date Temp Pulse Resp B/P (MAP) Pulse Ox O2 O2 Flow FiO2 Time Delivery Rate 08/24/18 97.9 57 18 132/50 96 Room Air 08:00 (77) Intake and Output 08/23/18 08/23/18 08/24/18 1515:00 23:00 07:00 IntakeIntake Total 200 ml OutputOutput Total 200 ml BalanceBalance 200 ml -200 ml Exam Exam Review of Systems: CONSTITUTIONAL: No fevers, chills. PULMONARY: No sob CARDIOVASCULAR: No chest pain/palpitations GASTROINTESTINAL: No nausea/vomiting. GENITOURINARY: No hematuria/dysuria. MUSCULOSKELETAL: No myagias/arthalgias. PSYCHIATRIC: The patient denies depression. NEUROLOGIC: No weakness Constitutional: alert Psych: no complaints Head: normocephalic ENMT: mucosa pink and moist Neck: supple, jvd (9 cm water) Respiratory: diminished breath sounds (at bases/B) Cardiovascular: regular rate and rhythm Gastrointestinal: soft, non-tender Musculoskeletal: muscle weakness (mild generalized) Extremities: edema (trace/B) Neurological: other (No focal deficits) Labs Result Diagram: 08/22/18 0607 Medications Medications Current Medications Docusate Sodium (Colace) 100 mg BID PO Last administered on 08/24/18at 08:44; Admin Dose 100 MG; Start 08/09/18 at 21:00 Senna (Senokot) 1 tab HS PO Last administered on 08/23/18 21:15; Admin Dose 1 TAB; Start 08/09/18 at 21:00 Magnesium Hydroxide (Milk Of Mag) 30 ml BID PRN PO CONSTIPATION Last administered on 08/21/18 08:24; Admin Dose 30 ML; Start 08/09/18 at 19:00 Lactulose (Enulose) 20 gm DAILY PRN PO CONSTIPATION; Start 08/09/18 at 19:00 Bisacodyl (Dulcolax Supp) [address] CONSTIPATION; Start 08/09/18 at 19 :00 Miscellaneous Information (Pending Santyl Order For Wound Care) This patient mendoza... PRN PRN XX WOUND CARE; Start 08/09/18 at 19:00 Amiodarone HCl (Cordarone) 200 mg BID PO Last administered on 08/23/18 09:38; Admin Dose 200 MG; Start 08/09/18 at 21:00 Pantoprazole (Protonix Tab) 40 mg DAILY@06 PO Last administered on 08/24/18 06:43; Admin Dose 40 MG; Start 08/10/18 at 06:00 Lorazepam (Ativan) 1 mg HS PO Last administered on 08/23/18 21:15; Admin Dose 1 MG; Start 08/09/18 at 21:00 Escitalopram Oxalate (Lexapro) 20 mg DAILY PO Last administered on 08/24/18 08:45; Admin Dose 20 MG; Start 08/10/18 at 09:00 Folic Acid (Folic Acid) 1 mg DAILY PO Last administered on 08/24/18 08:46; A dmin Dose 1 MG; Start 08/10/18 at 09:00 Lubiprostone (Amitiza) 24 mcg BID PO Last administered on 08/24/18 08:45; Admin Dose 24 MCG; Start 08/09/18 at 21:00 Pramipexole (Mirapex) 0.5 mg BID PO Last administered on 08/24/18 08:44; Admin Dose 0.5 MG; Start 08/09/18 at 21:00 Magnesium Oxide (Mag-Ox 400) 400 mg DAILY PO Last administered on 08/24/18 08:44; Admin Dose 400 MG; Start 08/10/18 at 09:00 Carbidopa/Levodopa (Sinemet (25/ 100)) 1 tab QID PO Last administered on 08/24/18 12:01; Admin Dose 1 TAB; Start 08/09/18 at 21:00 Acetaminophen (Tylenol Tab) 650 mg Q8 PRN PO MODERATE PAIN LEVEL 4-6 Last administered on 08/10/18 15:18; Admin Dose 650 MG; Start 08/09/18 at 19:30 Apixaban (Eliquis) 2.5 mg BID PO Last administered on 08/24/18 08:44; Admin Dose 2.5 MG; Start 08/11/18 at 09:00 Tramadol HCl (Ultram) 50 mg Q4H PRN PO SEVERE PAIN LEVEL 7-10 Last administered on 08/22/18 17:49; Admin Dose 50 MG; Start 08/11/18 at 15:30 Furosemide (Lasix) 20 mg BID PO Last administered on 08/24/18 08:44; Admin Dose 20 MG; Start 08/13/18 at 21:00 Lubiprostone (Amitiza) 8 mcg BID PRN PO constipation; Start 08/14/18 at 15:00 Clopidogrel Bisulfate (plaVIX) 75 mg DAILY PO Last administered on 08/21/18 08:29; Admin Dose 75 MG; Start 08/16/18 at 09:00; Status Hold Nifedipine (Procardia Xl) 30 mg DAILY PO Last administered on 08/24/18 08:45; Admin Dose 30 MG; Start 08/19/18 at 09:00 Metoprolol Succinate (Toprol Xl) 25 mg BID PO Last administered on 08/23/18 09:39; Admin Dose 25 MG; Start 08/21/18 at 21:00 Polysaccharide Iron Complex (Niferex-150) 1 cap BID PO Last administered on 08/24/18 08:46; Admin Dose 1 CAP; Start 08/22/18 at 21:00 BETTY CORDOBA Aug 24, 2018 13:30
[2018-08-24 14:00] VITALS: BP 107/54; PULSE 62; RESP 18
[2018-08-24] MEDS: ACETAMINOPHEN 325 MG TAB PO PRN (15:34)
--- NOTE | 2018-08-24 16:04 | PN ---
Date/Time of Note Date/Time of Note DATE: 08/24/18 TIME: 16:01 Assessment/Plan VTE Prophylaxis Risk score (from Ns)>0 risk: 5 SCD applied (from Ns): Yes Pharmacological prophylaxis: NA/contraindicated Pharm contraindication: low risk/ambulating Lines/Catheters Urinary Cath still in place: No Assessment/Plan Hospital Course 82-year-old female with: 1. 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 2. Hypertension. 3. Hyperlipidemia. 4. Parkinson disease. 5. Chronic atrial fibrillation. 6 UTI ecoli resistant to cipro> now alpha hemolytic strep Plan -Continue with Plavix - s/p abx, repeet UA + nwo +urine culture> will have to wait for final cx and susceptibility to finalise - cw nifedipine 30 -cw on Eliquis per cardiology for A. fib -Continue with statin - cw nifedipine/MTP/ Lasix now twice daily/amiodarone continue with Sinemet -Follow with neuro and cardiac recs -PT/OT -stool Softeners Result Diagram: 08/22/18 0607 Subjective 24 Hr Interval Summary Free Text/Dictation no acute events Exam/Review of Systems Exam Vitals Vital Signs Date Temp Pulse Resp B/P (MAP) Pulse Ox O2 O2 Flow FiO2 Time Delivery Rate 08/24/18 97.9 57 18 132/50 96 Room Air 08:00 (77) Intake and Output 08/23/18 08/23/18 08/24/18 1515:00 23:00 07:00 IntakeIntake Total 200 ml OutputOutput Total 200 ml BalanceBalance 200 ml -200 ml Exam Constitutional: alert, oriented Neck: supple Respiratory: clear to auscultation Cardiovascular: regular rate and rhythm Gastrointestinal: soft Medications Medication Current Medications Docusate Sodium (Colace) 100 mg BID PO Last administered on 08/24/18at 08:44; Admin Dose 100 MG; Start 08/09/18 at 21:00 Senna (Senokot) 1 tab HS PO Last administered on 08/23/18at 21:15; Admin Dose 1 TAB; Start 08/09/18 at 21:00 Magnesium Hydroxide (Milk Of Mag) 30 ml BID PRN PO CONSTIPATION Last administered on 08/21/18at 08:24; Admin Dose 30 ML; Start 08/09/18 at 19:00 Lactulose (Enulose) 20 gm DAILY PRN PO CONSTIPATION; Start 08/09/18 at 19:00 Bisacodyl (Dulcolax Supp) 10 mg DAILY PRN [place] CONSTIPATION; Start 08/09/18 at 19:00 Miscellaneous Information (Pending Santyl Order For Wound Care) This patient mendoza... PRN PRN XX WOUND CARE; Start 08/09/18 at 19:00 Pantoprazole (Protonix Tab) 40 mg DAILY@06 PO Last administered on 08/24/18 06:43; Admin Dose 40 MG; Start 08/10/18 at 06:00 Lorazepam (Ativan) 1 mg HS PO Last administered on 08/23/18 21:15; Admin Dose 1 MG; Start 08/09/18 at 21:00 Escitalopram Oxalate (Lexapro) 20 mg DAILY PO Last administered on 08/24/18 08:45; Admin Dose 20 MG; Start 08/10/18 at 09:00 Folic Acid (Folic Acid) 1 mg DAILY PO Last administered on 08/24/18 08:46; Admin Dose 1 MG; Start 08/10/18 at 09:00 Lubiprostone (Amitiza) 24 mcg BID PO Last administered on 08/24/18 08:45; Admin Dose 24 MCG; Start 08/09/18 at 21:00 Pramipexole (Mirapex) 0.5 mg BID PO Last administered on 08/24/18 08:44; Admin Dose 0.5 MG; Start 08/09/18 at 21:00 Magnesium Oxide (Mag-Ox 400) 400 mg DAILY PO Last administered on 08/24/18 08:44; Admin Dose 400 MG; Start 08/10/18 at 09:00 Carbidopa/Levodopa (Sinemet (25/ 100)) 1 tab QID PO Last administered on 08/24/18 12:01; Admin Dose 1 TAB; Start 08/09/18 at 21:00 Acetaminophen (Tylenol Tab) 650 mg Q8 PRN PO MODERATE PAIN LEVEL 4-6 Last administered on 08/24/18 15:34; Admin Dose 650 MG; Start 08/09/18 at 19:30 Apixaban (Eliquis) 2.5 mg BID PO Last administered on 08/24/18 08:44; Admin Dose 2.5 MG; Start 08/11/18 at 09:00 Tramadol HCl (Ultram) 50 mg Q4H PRN PO SEVERE PAIN LEVEL 7-10 Last administered on 08/22/18 17:49; Admin Dose 50 MG; Start 08/11/18 at 15:30 Furosemide (Lasix) 20 mg BID PO Last administered on 08/24/18 08:44; Admin Dose 20 MG; Start 08/13/18 at 21:00 Lubiprostone (Amitiza) 8 mcg BID PRN PO constipation; Start 08/14/18 at 15:00 Clopidogrel Bisulfate (plaVIX) 75 mg DAILY PO Last administered on 08/21/18 08:29; Admin Dose 75 MG; Start 08/16/18 at 09:00; Status Hold Nifedipine (Procardia Xl) 30 mg DAILY PO Last administered on 08/24/18 08:45; Admin Dose 30 MG; Start 08/19/18 at 09:00 Polysaccharide Iron Complex (Niferex-150) 1 cap BID PO Last administered on 08/24/18 08:46; Admin Dose 1 CAP; Start 08/22/18 at 21:00 Amiodarone HCl (Cordarone) 200 mg DAILY PO ; Start 08/25/18 at 09:00 Metoprolol Succinate (Toprol Xl) 25 mg DAILY PO ; Start 08/25/18 at 09:00 CORI JON MD Aug 24, 2018 16:04
[2018-08-24 20:00] VITALS: BP 116/56; PULSE 58; RESP 16
[2018-08-24] MEDS: SENNA TAB PO SCH (21:45)
[2018-08-24] MEDS: LORAZEPAM 0.5 MG TAB PO SCH (21:45)
[2018-08-25 02:00] VITALS: BP 113/56; PULSE 60; RESP 16
[2018-08-25] MEDS: traMADol 50 MG TAB PO PRN ×2 (03:36→03:37)
[2018-08-25] MEDS: PANTOPRAZOLE (EC) 40 MG TAB PO SCH (06:34)
[2018-08-25 08:00] VITALS: BP 103/54; PULSE 61; RESP 18
[2018-08-25] MEDS: LUBIPROSTONE 24 MCG CAP PO SCH (08:40)
[2018-08-25] MEDS: ESCITALOPRAM 10 MG TAB PO SCH (08:40)
[2018-08-25] MEDS: FOLIC ACID 1 MG TAB PO SCH (08:40)
[2018-08-25] MEDS: DOCUSATE SODIUM 100 MG CAP PO SCH (08:40)
[2018-08-25] MEDS: PRAMIPEXOLE 0.25 MG TAB PO SCH (08:41)
[2018-08-25] MEDS: POLYSACCHARIDE IRON COMPLEX CAP PO SCH (08:41)
[2018-08-25] MEDS: FUROSEMIDE 20 MG TAB PO SCH (08:42)
[2018-08-25] MEDS: APIXABAN 5 MG TABLET PO SCH (08:42)
[2018-08-25] MEDS: CARBIDOPA/LEVODOPA (25/100) TAB PO SCH (08:42)
[2018-08-25] MEDS: MAGNESIUM OXIDE 400 MG TAB PO SCH (08:48)
[2018-08-25] MEDS: NIFEdipine (XL) 30 MG TAB PO SCH (08:52)
[2018-08-25] MEDS ORDERED: AMIODARONE 200 MG TAB PO SCH (09:00)
[2018-08-25] MEDS ORDERED: METOPROLOL (XL) 25 MG TAB PO SCH (09:00)
[2018-08-25] MEDS: ACETAMINOPHEN 325 MG TAB PO PRN (11:37)
--- NOTE | 2018-08-25 13:18 | DS ---
Date/Time of Note Date/Time of Note DATE: 08/25/18 TIME: 13:16 Discharge Summary Admission/Discharge Info Admit Date/Time Aug 09, 2018 at 18:10 Discharge Date/Time Discharge Diagnosis 1. Left parietal infarct cerebrovascular accident with right-sided weakness. 2. Parkinson's disease. 3. Hypertension. 4. Dysphagia, improved 5. History of atrial fibrillation. 6. Improvements in self-care, mobility and cognition. Patient Condition: Good Hospital Course The patient was admitted for comprehensive interdisciplinary rehabilitation and made steady functional gains from a Mod level to a SBA level for self care tasks and mobility including ambulating over 150 feet with the use of a FWW. Patient is being discharged home with the recommendation of home health PT, OT and RN follow up, and supervision. The DC meds are per the medication reconciliation sheet. The discharge equipment recommendations include: FWW, BSC, shower chair. The patient will follow up with PMD upon DC. Home Meds Active Scripts Clonidine Hcl* (Clonidine Hcl*) 0.2 Mg Tablet, 0.2 MG PO Q8 PRN for ELEVATED SYSTOLIC BP, #30 TAB Prov:YOLI HARRISON 07/08/15 Reported Medications Lubiprostone* (Amitiza*) 24 Mcg Capsule, 24 MCG PO BID, #60 CAP 07/06/15 Carbidopa-Levodopa* (Sinemet*) 25-100 Mg Tab, 1 TAB PO QID, TAB 07/06/15 Loperamide Hcl* (Loperamide Hcl*) 2 Mg Cap, 2 MG PO TID, CAP 07/06/15 Valsartan* (Diovan*) 160 Mg Tablet, 160 MG PO DAILY, TAB 07/06/15 Dexlansoprazole (Dexilant) 60 Mg Cap., 60 MG PO DAILY, #30 CAP 07/06/15 Metoprolol Succinate* (Toprol XL*) 50 Mg Tab.er.24h, 50 MG PO DAILY, #30 TAB 07/06/15 Citalopram Hydrobromide* (Celexa*) 20 Mg Tablet, 20 MG PO DAILY, #30 TAB 07/06/15 Aspirin (Low Dose Aspirin) 81 Mg Tablet., 81 MG PO DAILY, #30 TAB 07/06/15 Digoxin* (Digoxin*) 0.25 Mg Tab, 0.25 MG PO DAILY, #30 TAB 07/06/15 Clopidogrel Bisulfate (Clopidogrel) 75 Mg Tablet, 75 MG PO DAILY, #30 TAB 16 Lorazepam* (Lorazepam*) 1 Mg Tablet, 1 MG PO BID PRN for ANXIETY, #30 TAB 07/06/15 Triamterene-HCTZ* (Triamterene-HCTZ*) 37.5 - 25 Mg Capsule, 1 CAP PO DAILY, CAP 07/06/15 Fluticasone Propionate (Flonase Allergy Relief) 9.9 Ml [place].susp, 1 SPRAY NASAL BID, #1 BOTTLE TO EACH NOSTRIL 07/06/15 Magnesium Oxide* (Mag-Oxide*) 400 Mg Tablet, 400 MG PO BID, TAB 07/06/15 Folic Acid* (Folic Acid*) 1 Mg Tablet, 1 MG PO DAILY, TAB 07/06/15 Primary Care Provider Not On Staff Doctor JAMES PYLE MD Aug 25, 2018 13:18
== END 2018-08-25 13:16 | disposition home health service (06) | DRG 57 ==
LOC: VRC 18:10
PROVIDERS: ADMIT Physical Medicine & Rehabilitation; ATTEND Internal Medicine
PROC: F07Z5ZZ Bed Mobility Treatment (ICD-10-PCS; principal; 2018-08-09)
PROC: F08Z2ZZ Grooming/Personal Hygiene Treatment (ICD-10-PCS; 2018-08-09)
PROC: F06Z6ZZ Communicative/Cognitive Integration Skills Treatment (ICD-10-PCS; 2018-08-09)
DX: I69.351 Hemiplegia and hemiparesis following cerebral infarction affecting right dominant side (principal); N39.0 Urinary tract infection, site not specified; I69.391 Dysphagia following cerebral infarction; I10 Essential (primary) hypertension; E78.5 Hyperlipidemia, unspecified; D64.9 Anemia, unspecified; R26.9 Unspecified abnormalities of gait and mobility; G31.83 Neurocognitive disorder with Lewy bodies; F02.80 Dementia in other diseases classified elsewhere, unspecified severity, without behavioral disturbance, psychotic disturbance, mood disturbance, and anxiety; I48.0 Paroxysmal atrial fibrillation; F01.50 Vascular dementia, unspecified severity, without behavioral disturbance, psychotic disturbance, mood disturbance, and anxiety
CPT/HCPCS: 80048; 80053; 80061; 81001; 83540; 83880; 85025; 87081; 87086; 92507; 92523; 92610; 93005; 97110; 97112; 97116; 97163; 97167; 97530; 97535; 97542; J0696